=== PATIENT | male | born 1945 | race Caucasian/White ===

== ENCOUNTER → 2017-08-08 10:29 | Outpatient (CLI) | payer MEDICARE, OTHER, SELFPAY ==
[2017-08-08 11:38] LABS: Absolute Lymphocyte Count 2.41 X10^3/ul (0.83-4.51); Absolute Neutrophil Count 4.8 X10^3/uL (2.0-7.7); Basophil# 0.03 X10^3/uL; Basophil% 0.4 % (0-1); Eosinophil# 0.24 X10^3/uL; Eosinophils% 2.8 % (0-5); Hematocrit 47.3 % (40-54); Hemoglobin 15.2 g/dl (13.0-16.5); Lymphocyte # 2.41 X10^3/ul (4.0); Lymphocyte % 28.3 % (19-41); Mean Corp Hgb Conc 32.1 g/gl (32-36); Mean Corpuscular Hgb 31.1 pg (27.0-32.0); Mean Corpuscular Volume 96.7 fL (80-94); Mean Platelet Vol. 10.4 fl (6.2-12.0); Monocyte# 1.02 X10^3/uL; Neutrophil % 56.4 % (47-70); Platelet Count 175 K/mm3 (150-450); RBC Distribution Width CV 13.3 % (11.6-14.6); RBC Distribution Width SD 47.7 fl (35.1-43.9); Red Blood Count 4.89 M/mm3 (4.6-6.2); White Blood Count 8.5 K/mm3 (4.4-11.0)
[2017-08-08 11:39] LABS: POSITIVE COUNT NO; POSITIVE DIFFERENTIAL NO; POSITIVE MORPHOLOGY NO
[2017-08-08 12:12] LABS: ALB/GLOB Ratio 1.3 RATIO (0.9-2.4); AST(SGOT) 18 U/L (15-37); Alanine Aminotransfer ALT/SGPT 24 U/L (16-61); Alkaline Phosphatase 59 U/L (45-117); Anion Gap 8 (5-15); BUN 20 mg/dL (7-18); BUN/Creat Ratio 21.6 RATIO (10-20); Calcium,Total 8.4 mg/dL (8.5-10.1); Chloride 109 mmol/L (98-107); Creatinine, Serum 0.92 mg/dL (0.70-1.30); EST Glomerular Filtration Rate 86 mL/min (>60); Est Glom Filt Rate - Afr Amer 104 mL/min (>60); Glucose 80 mg/dL (74-106); Potassium 3.9 mmol/L (3.5-5.1); Sodium Level 142 mmol/L (136-145)
== END ==
PROVIDERS: Family Provider Family Medicine Geriatric Medicine; PCP Family Medicine Geriatric Medicine; Visit Provider Internal Medicine Rheumatology
DX: I10 Essential (primary) hypertension (principal); M17.0 Bilateral primary osteoarthritis of knee; I82.503 Chronic embolism and thrombosis of unspecified deep veins of lower extremity, bilateral; E78.5 Hyperlipidemia, unspecified; K57.90 Diverticulosis of intestine, part unspecified, without perforation or abscess without bleeding; Z86.711 Personal history of pulmonary embolism
CPT/HCPCS: 36415; 80053; 85025

== ENCOUNTER → 2017-08-14 10:31 | Outpatient (CLI) | payer MEDICARE, OTHER, SELFPAY ==
[2017-08-14 12:48] LABS: Absolute Lymphocyte Count 2.48 X10^3/ul (0.83-4.51); Absolute Neutrophil Count 3.8 X10^3/uL (2.0-7.7); Basophil# 0.02 X10^3/uL; Basophil% 0.3 % (0-1); Eosinophil# 0.22 X10^3/uL; Hematocrit 44.6 % (40-54); Hemoglobin 14.8 g/dl (13.0-16.5); Lymphocyte # 2.48 X10^3/ul (4.0); Lymphocyte % 33.5 % (19-41); Mean Corp Hgb Conc 33.2 g/gl (32-36); Mean Corpuscular Volume 96.3 fL (80-94); Mean Platelet Vol. 10.5 fl (6.2-12.0); Monocyte# 0.91 X10^3/uL; Monocyte% 12.3 % (0-10); Neutrophil # 3.77 X10^3/uL (2.7-7.7); Neutrophil % 50.8 % (47-70); Platelet Count 186 K/mm3 (150-450); RBC Distribution Width CV 13.2 % (11.6-14.6); RBC Distribution Width SD 45.7 fl (35.1-43.9); Red Blood Count 4.63 M/mm3 (4.6-6.2); White Blood Count 7.4 K/mm3 (4.4-11.0)
[2017-08-14 12:55] LABS: POSITIVE COUNT NO; POSITIVE DIFFERENTIAL NO; POSITIVE MORPHOLOGY NO
[2017-08-14 13:00] LABS: Vitamin D,25 Hydroxy 19.9 ng/mL (29.95-100.01)
[2017-08-14 13:02] LABS: ALB/GLOB Ratio 1.2 RATIO (0.9-2.4); AST(SGOT) 22 U/L (15-37); Alanine Aminotransfer ALT/SGPT 25 U/L (16-61); Albumin, Serum 3.8 g/dL (3.2-5.0); Alkaline Phosphatase 56 U/L (45-117); Anion Gap 10 (5-15); BUN 16 mg/dL (7-18); BUN/Creat Ratio 17.6 RATIO (10-20); Calcium,Total 8.5 mg/dL (8.5-10.1); Chloride 107 mmol/L (98-107); Creatinine, Serum 0.91 mg/dL (0.70-1.30); EST Glomerular Filtration Rate 87 mL/min (>60); Est Glom Filt Rate - Afr Amer 106 mL/min (>60); Globulin 3.1 g/dL (2.2-4.2); Glucose 83 mg/dL (74-106); Potassium 3.8 mmol/L (3.5-5.1); Protein, Total 6.9 g/dL (6.4-8.2); Sodium Level 141 mmol/L (136-145); Thyroid Stim Hormone (TSH) 1.47 uIU/mL (0.358-3.74)
== END ==
PROVIDERS: Family Provider Family Medicine Geriatric Medicine; PCP Family Medicine Geriatric Medicine; Visit Provider Family Medicine Geriatric Medicine
DX: I10 Essential (primary) hypertension (principal); E55.9 Vitamin D deficiency, unspecified
CPT/HCPCS: 36415; 80053; 82306; 84443; 85025

== ENCOUNTER → 2017-12-15 11:35 | Outpatient (CLI) | payer MEDICARE, OTHER, SELFPAY ==
[2017-12-15 12:26] LABS: Absolute Lymphocyte Count 2.89 X10^3/ul (0.83-4.51); Absolute Neutrophil Count 3.5 X10^3/uL (2.0-7.7); Basophil# 0.01 X10^3/uL; Basophil% 0.1 % (0-1); Eosinophil# 0.18 X10^3/uL; Eosinophils% 2.4 % (0-5); Hematocrit 45.6 % (40-54); Hemoglobin 14.9 g/dl (13.0-16.5); Lymphocyte # 2.89 X10^3/ul (4.0); Lymphocyte % 38.7 % (19-41); Mean Corp Hgb Conc 32.7 g/gl (32-36); Mean Corpuscular Hgb 31.2 pg (27.0-32.0); Mean Corpuscular Volume 95.6 fL (80-94); Mean Platelet Vol. 10.5 fl (6.2-12.0); Monocyte# 0.89 X10^3/uL; Monocyte% 11.9 % (0-10); Neutrophil # 3.49 X10^3/uL (2.7-7.7); Neutrophil % 46.9 % (47-70); Platelet Count 174 K/mm3 (150-450); RBC Distribution Width CV 13.4 % (11.6-14.6); RBC Distribution Width SD 46.2 fl (35.1-43.9); Red Blood Count 4.77 M/mm3 (4.6-6.2); White Blood Count 7.5 K/mm3 (4.4-11.0)
[2017-12-15 12:35] LABS: POSITIVE COUNT NO; POSITIVE DIFFERENTIAL NO; POSITIVE MORPHOLOGY NO
[2017-12-15 12:56] LABS: ALB/GLOB Ratio 1.3 RATIO (0.9-2.4); AST(SGOT) 20 U/L (15-37); Alanine Aminotransfer ALT/SGPT 26 U/L (16-61); Albumin, Serum 3.9 g/dL (3.2-5.0); Alkaline Phosphatase 61 U/L (45-117); Anion Gap 8 (5-15); BUN 15 mg/dL (7-18); Calcium,Total 8.7 mg/dL (8.5-10.1); Chloride 109 mmol/L (98-107); EST Glomerular Filtration Rate 78 mL/min (>60); Est Glom Filt Rate - Afr Amer 95 mL/min (>60); Globulin 3.1 g/dL (2.2-4.2); Glucose 83 mg/dL (74-106); Potassium 3.9 mmol/L (3.5-5.1); Sodium Level 142 mmol/L (136-145)
== END ==
PROVIDERS: Family Provider Family Medicine Geriatric Medicine; PCP Family Medicine Geriatric Medicine
DX: D68.62 Lupus anticoagulant syndrome (principal)
CPT/HCPCS: 36415; 80053; 85025

== ENCOUNTER → 2018-02-15 11:39 | Outpatient (CLI) | payer MEDICARE, OTHER, SELFPAY ==
[2018-02-15 12:35] LABS: Absolute Lymphocyte Count 2.33 X10^3/ul (0.83-4.51); Absolute Neutrophil Count 3.7 X10^3/uL (2.0-7.7); Basophil# 0.02 X10^3/uL; Basophil% 0.3 % (0-1); Eosinophil# 0.19 X10^3/uL; Eosinophils% 2.8 % (0-5); Hematocrit 45.6 % (40-54); Hemoglobin 15.3 g/dl (13.0-16.5); Lymphocyte # 2.33 X10^3/ul (4.0); Mean Corp Hgb Conc 33.6 g/gl (32-36); Mean Corpuscular Volume 95.4 fL (80-94); Mean Platelet Vol. 10.8 fl (6.2-12.0); Monocyte# 0.63 X10^3/uL; Monocyte% 9.2 % (0-10); Neutrophil # 3.68 X10^3/uL (2.7-7.7); Neutrophil % 53.6 % (47-70); Platelet Count 183 K/mm3 (150-450); RBC Distribution Width CV 13.2 % (11.6-14.6); RBC Distribution Width SD 44.8 fl (35.1-43.9); Red Blood Count 4.78 M/mm3 (4.6-6.2); White Blood Count 6.9 K/mm3 (4.4-11.0)
[2018-02-15 12:37] LABS: POSITIVE COUNT NO; POSITIVE DIFFERENTIAL NO; POSITIVE MORPHOLOGY NO
[2018-02-15 12:53] LABS: Vitamin D,25 Hydroxy 29.3 ng/mL (29.95-100.01)
[2018-02-15 13:18] LABS: ALB/GLOB Ratio 1.1 RATIO (0.9-2.4); AST(SGOT) 17 U/L (15-37); Alanine Aminotransfer ALT/SGPT 23 U/L (16-61); Albumin, Serum 3.6 g/dL (3.2-5.0); Alkaline Phosphatase 57 U/L (45-117); Anion Gap 10 (5-15); BUN 21 mg/dL (7-18); BUN/Creat Ratio 16.8 RATIO (10-20); Calcium,Total 8.3 mg/dL (8.5-10.1); Chloride 110 mmol/L (98-107); Creatinine, Serum 1.25 mg/dL (0.70-1.30); EST Glomerular Filtration Rate 60 mL/min (>60); Est Glom Filt Rate - Afr Amer 73 mL/min (>60); Globulin 3.3 g/dL (2.2-4.2); Glucose 126 mg/dL (74-106); Potassium 3.7 mmol/L (3.5-5.1); Protein, Total 6.9 g/dL (6.4-8.2); Sodium Level 141 mmol/L (136-145); Thyroid Stim Hormone (TSH) 0.83 uIU/mL (0.358-3.74)
[2018-02-16 10:51] LABS: Hep C Antibodies <0.1 s/co ratio (0.0-0.9)
== END ==
PROVIDERS: Family Provider Family Medicine Geriatric Medicine; PCP Family Medicine Geriatric Medicine; Visit Provider Family Medicine Geriatric Medicine
DX: M17.0 Bilateral primary osteoarthritis of knee (principal); I82.503 Chronic embolism and thrombosis of unspecified deep veins of lower extremity, bilateral; I10 Essential (primary) hypertension; E78.5 Hyperlipidemia, unspecified; K57.90 Diverticulosis of intestine, part unspecified, without perforation or abscess without bleeding; Z86.711 Personal history of pulmonary embolism; E55.9 Vitamin D deficiency, unspecified; Z13.89 Encounter for screening for other disorder
CPT/HCPCS: 36415; 80053; 82306; 84443; 85025; 86803

== ENCOUNTER → 2018-08-16 09:28 | Outpatient (CLI) | payer MEDICARE, OTHER, SELFPAY ==
[2018-08-16 12:47] LABS: Absolute Lymphocyte Count 1.94 X10^3/ul (0.83-4.51); Absolute Neutrophil Count 3.5 X10^3/uL (2.0-7.7); Basophil# 0.02 X10^3/uL; Basophil% 0.3 % (0-1); Eosinophil# 0.19 X10^3/uL; Eosinophils% 2.9 % (0-5); Lymphocyte # 1.94 X10^3/ul (4.0); Lymphocyte % 29.9 % (19-41); Mean Corp Hgb Conc 32.6 g/gl (32-36); Mean Corpuscular Hgb 31.4 pg (27.0-32.0); Mean Corpuscular Volume 96.2 fL (80-94); Mean Platelet Vol. 10.5 fl (6.2-12.0); Monocyte# 0.82 X10^3/uL; Monocyte% 12.6 % (0-10); Neutrophil # 3.51 X10^3/uL (2.7-7.7); Neutrophil % 54.1 % (47-70); Platelet Count 176 K/mm3 (150-450); RBC Distribution Width CV 13.5 % (11.6-14.6); RBC Distribution Width SD 47.5 fl (35.1-43.9); Red Blood Count 4.78 M/mm3 (4.6-6.2); White Blood Count 6.5 K/mm3 (4.4-11.0)
[2018-08-16 12:50] LABS: POSITIVE COUNT NO; POSITIVE DIFFERENTIAL NO; POSITIVE MORPHOLOGY NO
[2018-08-16 13:04] LABS: ALB/GLOB Ratio 1.3 RATIO (0.9-2.4); AST(SGOT) 20 U/L (15-37); Alanine Aminotransfer ALT/SGPT 29 U/L (16-61); Albumin, Serum 3.9 g/dL (3.2-5.0); Alkaline Phosphatase 56 U/L (45-117); Anion Gap 7 (5-15); BUN 16 mg/dL (7-18); Calcium,Total 8.5 mg/dL (8.5-10.1); Chloride 110 mmol/L (98-107); EST Glomerular Filtration Rate 78 mL/min (>60); Est Glom Filt Rate - Afr Amer 94 mL/min (>60); Globulin 2.9 g/dL (2.2-4.2); Glucose 85 mg/dL (74-106); Potassium 4.2 mmol/L (3.5-5.1); Protein, Total 6.8 g/dL (6.4-8.2); Sodium Level 141 mmol/L (136-145); Thyroid Stim Hormone (TSH) 1.07 uIU/mL (0.358-3.74)
== END ==
PROVIDERS: Family Provider Family Medicine Geriatric Medicine; PCP Family Medicine Geriatric Medicine; Visit Provider Family Medicine Geriatric Medicine
DX: I10 Essential (primary) hypertension (principal); E55.9 Vitamin D deficiency, unspecified
CPT/HCPCS: 36415; 80053; 82306; 84443; 85025

== ENCOUNTER → 2018-10-05 | Outpatient (CLI) | payer MEDICARE, OTHER, SELFPAY ==
[2018-10-05 12:30] LABS: Absolute Lymphocyte Count 2.15 X10^3/ul (0.83-4.51); Basophil# 0.01 X10^3/uL; Basophil% 0.2 % (0-1); Eosinophil# 0.18 X10^3/uL; Eosinophils% 2.9 % (0-5); Hematocrit 44.4 % (40-54); Hemoglobin 14.7 g/dl (13.0-16.5); Lymphocyte # 2.15 X10^3/ul (4.0); Lymphocyte % 35.1 % (19-41); Mean Corp Hgb Conc 33.1 g/gl (32-36); Mean Corpuscular Hgb 31.3 pg (27.0-32.0); Mean Corpuscular Volume 94.7 fL (80-94); Mean Platelet Vol. 10.9 fl (6.2-12.0); Monocyte% 13.1 % (0-10); Neutrophil # 2.98 X10^3/uL (2.7-7.7); Neutrophil % 48.5 % (47-70); Platelet Count 175 K/mm3 (150-450); RBC Distribution Width CV 13.4 % (11.6-14.6); RBC Distribution Width SD 44.7 fl (35.1-43.9); Red Blood Count 4.69 M/mm3 (4.6-6.2); White Blood Count 6.1 K/mm3 (4.4-11.0)
[2018-10-05 12:33] LABS: POSITIVE COUNT NO; POSITIVE DIFFERENTIAL NO; POSITIVE MORPHOLOGY NO
[2018-10-05 12:50] LABS: ALB/GLOB Ratio 1.3 RATIO (0.9-2.4); AST(SGOT) 19 U/L (15-37); Alanine Aminotransfer ALT/SGPT 24 U/L (16-61); Albumin, Serum 3.8 g/dL (3.2-5.0); Alkaline Phosphatase 59 U/L (45-117); Anion Gap 5 (5-15); BUN 16 mg/dL (7-18); BUN/Creat Ratio 17.9 RATIO (10-20); Calcium,Total 8.1 mg/dL (8.5-10.1); Chloride 109 mmol/L (98-107); Creatinine, Serum 0.89 mg/dL (0.70-1.30); EST Glomerular Filtration Rate 89 mL/min (>60); Est Glom Filt Rate - Afr Amer 107 mL/min (>60); Globulin 2.9 g/dL (2.2-4.2); Glucose 83 mg/dL (74-106); Potassium 3.8 mmol/L (3.5-5.1); Protein, Total 6.7 g/dL (6.4-8.2); Sodium Level 138 mmol/L (136-145)
== END | disposition home or self-care (01) ==
LOC: MTLAB 09:30
PROVIDERS: Family Provider Family Medicine Geriatric Medicine; PCP Family Medicine Geriatric Medicine; Referring Provider Internal Medicine Rheumatology; Visit Provider Internal Medicine Rheumatology
DX: M17.0 Bilateral primary osteoarthritis of knee (principal); I82.503 Chronic embolism and thrombosis of unspecified deep veins of lower extremity, bilateral; I10 Essential (primary) hypertension; E78.5 Hyperlipidemia, unspecified; K57.90 Diverticulosis of intestine, part unspecified, without perforation or abscess without bleeding; Z86.711 Personal history of pulmonary embolism
CPT/HCPCS: 36415; 80053; 85025

== ENCOUNTER → 2019-02-08 | Outpatient (CLI) | payer MEDICARE, OTHER, SELFPAY ==
[2019-02-08 10:15] LABS: Absolute Lymphocyte Count 1.81 X10^3/uL (0.83-4.51); Absolute Neutrophil Count 3.5 X10^3/uL (2.0-7.7); Basophil# 0.03 X10^3/uL; Basophil% 0.5 % (0-1); Eosinophil# 0.28 X10^3/uL; Eosinophils% 4.4 % (0-5); Hematocrit 44.5 % (40-54); Hemoglobin 14.9 g/dL (13.0-16.5); Lymphocyte # 1.81 X10^3/ul (4.0); Lymphocyte % 28.5 % (19-41); Mean Corp Hgb Conc 33.5 g/dL (32-36); Mean Corpuscular Hgb 32.2 pg (27.0-32.0); Mean Corpuscular Volume 96.1 fL (80-94); Mean Platelet Vol. 10.4 fl (6.2-12.0); Monocyte# 0.74 X10^3/uL; Monocyte% 11.7 % (0-10); NRBC Flagged by Analyzer 0 % (0-5); Neutrophil # 3.47 X10^3/uL (2.7-7.7); Neutrophil % 54.7 % (47-70); Platelet Count 172 K/mm3 (150-450); RBC Distribution Width CV 12.7 % (11.6-14.6); RBC Distribution Width SD 44.9 fl (35.1-43.9); Red Blood Count 4.63 M/mm3 (4.6-6.2); White Blood Count 6.3 K/mm3 (4.4-11.0)
[2019-02-08 12:52] LABS: ALB/GLOB Ratio 1.2 RATIO (0.9-2.4); AST(SGOT) 13 U/L (15-37); Alanine Aminotransfer ALT/SGPT 23 U/L (16-61); Albumin, Serum 3.6 g/dL (3.2-5.0); Alkaline Phosphatase 63 U/L (45-117); Anion Gap 6 (5-15); BUN 17 mg/dL (7-18); BUN/Creat Ratio 17.7 RATIO (10-20); Calcium,Total 8.6 mg/dL (8.5-10.1); Chloride 109 mmol/L (98-107); Creatinine, Serum 0.96 mg/dL (0.70-1.30); EST Glomerular Filtration Rate 81 mL/min (>60); Est Glom Filt Rate - Afr Amer 99 mL/min (>60); Globulin 3.1 g/dL (2.2-4.2); Glucose 103 mg/dL (74-106); LDH 150 U/L (87-241); Potassium 3.6 mmol/L (3.5-5.1); Protein, Total 6.7 g/dL (6.4-8.2); Sodium Level 138 mmol/L (136-145)
== END | disposition home or self-care (01) ==
LOC: MTLAB 08:34
PROVIDERS: Family Provider Family Medicine Geriatric Medicine; PCP Family Medicine Geriatric Medicine
DX: D68.62 Lupus anticoagulant syndrome (principal)
CPT/HCPCS: 36415; 80053; 83615; 85025

== ENCOUNTER → 2019-02-18 | Outpatient (CLI) | payer MEDICARE, OTHER, SELFPAY ==
[2019-02-18 12:04] LABS: Absolute Lymphocyte Count 1.98 X10^3/uL (0.83-4.51); Absolute Neutrophil Count 3.9 X10^3/uL (2.0-7.7); Basophil# 0.04 X10^3/uL; Basophil% 0.6 % (0-1); Eosinophil# 0.25 X10^3/uL; Eosinophils% 3.5 % (0-5); Hematocrit 47.2 % (40-54); Hemoglobin 15.7 g/dL (13.0-16.5); Lymphocyte # 1.98 X10^3/ul (4.0); Mean Corp Hgb Conc 33.3 g/dL (32-36); Mean Corpuscular Volume 96.1 fL (80-94); Mean Platelet Vol. 10.7 fl (6.2-12.0); Monocyte# 0.87 X10^3/uL; Monocyte% 12.3 % (0-10); NRBC Flagged by Analyzer 0 % (0-5); Neutrophil % 55.3 % (47-70); Platelet Count 182 K/mm3 (150-450); RBC Distribution Width CV 12.6 % (11.6-14.6); RBC Distribution Width SD 44.4 fl (35.1-43.9); Red Blood Count 4.91 M/mm3 (4.6-6.2); White Blood Count 7.1 K/mm3 (4.4-11.0)
[2019-02-18 12:14] LABS: Vitamin D,25 Hydroxy 30.6 ng/mL (29.95-100.01)
[2019-02-18 12:21] LABS: Albumin, Serum 3.8 g/dL (3.2-5.0); BUN 15 mg/dL (7-18); BUN/Creat Ratio 16.2 RATIO (10-20); Creatinine, Serum 0.93 mg/dL (0.70-1.30); EST Glomerular Filtration Rate 85 mL/min (>60); Est Glom Filt Rate - Afr Amer 103 mL/min (>60); Glucose 79 mg/dL (74-106); Protein, Total 6.9 g/dL (6.4-8.2)
[2019-02-18 12:22] LABS: ALB/GLOB Ratio 1.2 RATIO (0.9-2.4); AST(SGOT) 23 U/L (15-37); Alanine Aminotransfer ALT/SGPT 25 U/L (16-61); Alkaline Phosphatase 63 U/L (45-117); Anion Gap 8 (5-15); Calcium,Total 8.7 mg/dL (8.5-10.1); Chloride 108 mmol/L (98-107); Globulin 3.1 g/dL (2.2-4.2); Potassium 4.1 mmol/L (3.5-5.1); Sodium Level 140 mmol/L (136-145); Thyroid Stim Hormone (TSH) 1.14 uIU/mL (0.358-3.74)
== END | disposition home or self-care (01) ==
LOC: POLAB3 09:35
PROVIDERS: Family Provider Family Medicine Geriatric Medicine; PCP Family Medicine Geriatric Medicine; Visit Provider Family Medicine Geriatric Medicine
DX: E55.9 Vitamin D deficiency, unspecified (principal); I10 Essential (primary) hypertension
CPT/HCPCS: 36415; 80053; 82306; 84443; 85025

== ENCOUNTER → 2019-05-28 14:28 | Outpatient (CLI) | payer MEDICARE, OTHER, SELFPAY ==
[2019-05-28 15:21] LABS: Absolute Lymphocyte Count 2.16 X10^3/uL (0.83-4.51); Absolute Neutrophil Count 4.8 X10^3/uL (2.0-7.7); Basophil# 0.04 X10^3/uL; Basophil% 0.5 % (0-1); Eosinophil# 0.26 X10^3/uL; Eosinophils% 3.2 % (0-5); Hematocrit 48.1 % (40-54); Hemoglobin 15.9 g/dL (13.0-16.5); Lymphocyte # 2.16 X10^3/ul (4.0); Lymphocyte % 26.7 % (19-41); Mean Corp Hgb Conc 33.1 g/dL (32-36); Mean Corpuscular Hgb 31.7 pg (27.0-32.0); Mean Platelet Vol. 10.3 fl (6.2-12.0); Monocyte# 0.82 X10^3/uL; Monocyte% 10.1 % (0-10); NRBC Flagged by Analyzer 0 % (0-5); Neutrophil # 4.79 X10^3/uL (2.7-7.7); Neutrophil % 59.3 % (47-70); Platelet Count 190 K/mm3 (150-450); RBC Distribution Width CV 12.8 % (11.6-14.6); RBC Distribution Width SD 45.2 fl (35.1-43.9); Red Blood Count 5.01 M/mm3 (4.6-6.2); White Blood Count 8.1 K/mm3 (4.4-11.0)
[2019-05-28 15:49] LABS: ALB/GLOB Ratio 1.2 RATIO (0.9-2.4); AST(SGOT) 18 U/L (15-37); Alanine Aminotransfer ALT/SGPT 27 U/L (16-61); Albumin, Serum 3.9 g/dL (3.2-5.0); Alkaline Phosphatase 59 U/L (45-117); Anion Gap 3 (5-15); BUN 23 mg/dL (7-18); BUN/Creat Ratio 17.8 RATIO (10-20); Calcium,Total 8.9 mg/dL (8.5-10.1); Chloride 115 mmol/L (98-107); Creatinine, Serum 1.29 mg/dL (0.70-1.30); EST Glomerular Filtration Rate 58 mL/min (>60); Est Glom Filt Rate - Afr Amer 70 mL/min (>60); Globulin 3.2 g/dL (2.2-4.2); Glucose 95 mg/dL (74-106); Potassium 3.9 mmol/L (3.5-5.1); Protein, Total 7.1 g/dL (6.4-8.2); Sodium Level 141 mmol/L (136-145)
== END ==
PROVIDERS: Family Provider Family Medicine Geriatric Medicine; PCP Family Medicine Geriatric Medicine; Referring Provider Internal Medicine Rheumatology; Visit Provider Internal Medicine Rheumatology
DX: I10 Essential (primary) hypertension (principal); M17.0 Bilateral primary osteoarthritis of knee; I82.503 Chronic embolism and thrombosis of unspecified deep veins of lower extremity, bilateral; E78.5 Hyperlipidemia, unspecified; K57.90 Diverticulosis of intestine, part unspecified, without perforation or abscess without bleeding; Z86.711 Personal history of pulmonary embolism
CPT/HCPCS: 36415; 80053; 85025

== ENCOUNTER → 2019-08-26 10:28 | Outpatient (CLI) | payer MEDICARE, OTHER, SELFPAY ==
[2019-08-26 12:27] LABS: Absolute Neutrophil Count 3.5 X10^3/uL (2.0-7.7); Basophil# 0.03 X10^3/uL; Basophil% 0.4 % (0-1); Eosinophils% 4.2 % (0-5); Hematocrit 45.8 % (40-54); Hemoglobin 14.9 g/dL (13.0-16.5); Lymphocyte % 33.8 % (19-41); Mean Corp Hgb Conc 32.5 g/dL (32-36); Mean Corpuscular Hgb 31.2 pg (27.0-32.0); Mean Corpuscular Volume 95.8 fL (80-94); Mean Platelet Vol. 10.4 fl (6.2-12.0); Monocyte# 0.89 X10^3/uL; Monocyte% 12.5 % (0-10); NRBC Flagged by Analyzer 0 % (0-5); Neutrophil # 3.48 X10^3/uL (2.7-7.7); Platelet Count 187 K/mm3 (150-450); RBC Distribution Width CV 12.6 % (11.6-14.6); RBC Distribution Width SD 44.5 fl (35.1-43.9); Red Blood Count 4.78 M/mm3 (4.6-6.2); White Blood Count 7.1 K/mm3 (4.4-11.0)
[2019-08-26 12:42] LABS: Vitamin D,25 Hydroxy 34.3 ng/mL
[2019-08-26 12:52] LABS: ALB/GLOB Ratio 1.2 RATIO (0.9-2.4); AST(SGOT) 16 U/L (15-37); Alanine Aminotransfer ALT/SGPT 23 U/L (16-61); Albumin, Serum 3.7 g/dL (3.2-5.0); Alkaline Phosphatase 59 U/L (45-117); Anion Gap 5 (5-15); BUN 14 mg/dL (7-18); BUN/Creat Ratio 13.9 RATIO (10-20); Calcium,Total 8.7 mg/dL (8.5-10.1); Chloride 109 mmol/L (98-107); Creatinine, Serum 1.01 mg/dL (0.70-1.30); EST Glomerular Filtration Rate 77 mL/min (>60); Est Glom Filt Rate - Afr Amer 93 mL/min (>60); Globulin 3.2 g/dL (2.2-4.2); Glucose 74 mg/dL (74-106); Potassium 4.1 mmol/L (3.5-5.1); Protein, Total 6.9 g/dL (6.4-8.2); Sodium Level 139 mmol/L (136-145); Thyroid Stim Hormone (TSH) 1.31 uIU/mL (0.358-3.74)
== END ==
PROVIDERS: PCP Family Medicine Geriatric Medicine; Visit Provider Family Medicine Geriatric Medicine
DX: E55.9 Vitamin D deficiency, unspecified (principal); I10 Essential (primary) hypertension
CPT/HCPCS: 36415; 80053; 82306; 84443; 85025

== ENCOUNTER → 2019-12-03 | Outpatient (CLI) | payer MEDICARE, OTHER, SELFPAY ==
[2019-12-03 13:05] LABS: Absolute Lymphocyte Count 1.88 X10^3/uL (0.83-4.51); Absolute Neutrophil Count 5.4 X10^3/uL (2.0-7.7); Basophil# 0.04 X10^3/uL; Basophil% 0.5 % (0-1); Eosinophil# 0.24 X10^3/uL; Eosinophils% 2.8 % (0-5); Hematocrit 47.9 % (40-54); Hemoglobin 15.5 g/dL (13.0-16.5); Lymphocyte # 1.88 X10^3/ul (4.0); Lymphocyte % 22.2 % (19-41); Mean Corp Hgb Conc 32.4 g/dL (32-36); Mean Corpuscular Hgb 31.4 pg (27.0-32.0); Mean Corpuscular Volume 97.2 fL (80-94); Mean Platelet Vol. 10.5 fl (6.2-12.0); Monocyte# 0.83 X10^3/uL; Monocyte% 9.8 % (0-10); NRBC Flagged by Analyzer 0 % (0-5); Neutrophil # 5.44 X10^3/uL (2.7-7.7); Neutrophil % 64.5 % (47-70); Platelet Count 200 K/mm3 (150-450); RBC Distribution Width SD 46.3 fl (35.1-43.9); Red Blood Count 4.93 M/mm3 (4.6-6.2); White Blood Count 8.5 K/mm3 (4.4-11.0)
[2019-12-03 13:15] LABS: ALB/GLOB Ratio 1.1 RATIO (0.9-2.4); AST(SGOT) 16 U/L (15-37); Alanine Aminotransfer ALT/SGPT 22 U/L (16-61); Albumin, Serum 3.8 g/dL (3.2-5.0); Alkaline Phosphatase 68 U/L (45-117); Anion Gap 7 (5-15); BUN 13 mg/dL (7-18); BUN/Creat Ratio 14.3 RATIO (10-20); Calcium,Total 8.6 mg/dL (8.5-10.1); Chloride 108 mmol/L (98-107); Creatinine, Serum 0.91 mg/dL (0.70-1.30); EST Glomerular Filtration Rate 87 mL/min (>60); Est Glom Filt Rate - Afr Amer 105 mL/min (>60); Globulin 3.4 g/dL (2.2-4.2); Glucose 93 mg/dL (74-106); Potassium 3.8 mmol/L (3.5-5.1); Protein, Total 7.2 g/dL (6.4-8.2); Sodium Level 139 mmol/L (136-145)
== END | disposition home or self-care (01) ==
LOC: MTLAB 09:58
PROVIDERS: PCP Family Medicine Geriatric Medicine; Referring Provider Internal Medicine Rheumatology; Visit Provider Internal Medicine Rheumatology
DX: M17.0 Bilateral primary osteoarthritis of knee (principal); I82.503 Chronic embolism and thrombosis of unspecified deep veins of lower extremity, bilateral; I10 Essential (primary) hypertension; E78.5 Hyperlipidemia, unspecified; K57.90 Diverticulosis of intestine, part unspecified, without perforation or abscess without bleeding; Z86.711 Personal history of pulmonary embolism
CPT/HCPCS: 36415; 80053; 85025

== ENCOUNTER → 2019-12-05 | Outpatient (CLI) | payer MEDICARE, OTHER, SELFPAY ==
[2019-12-05 12:04] LABS: Absolute Lymphocyte Count 1.82 X10^3/uL (0.83-4.51); Absolute Neutrophil Count 6.1 X10^3/uL (2.0-7.7); Basophil# 0.03 X10^3/uL; Basophil% 0.3 % (0-1); Eosinophil# 0.18 X10^3/uL; Hematocrit 47.1 % (40-54); Hemoglobin 15.6 g/dL (13.0-16.5); Lymphocyte # 1.82 X10^3/ul (4.0); Lymphocyte % 19.9 % (19-41); Mean Corp Hgb Conc 33.1 g/dL (32-36); Mean Corpuscular Hgb 31.5 pg (27.0-32.0); Mean Corpuscular Volume 95.2 fL (80-94); Mean Platelet Vol. 10.2 fl (6.2-12.0); NRBC Flagged by Analyzer 0 % (0-5); Neutrophil # 6.06 X10^3/uL (2.7-7.7); Neutrophil % 66.4 % (47-70); Platelet Count 203 K/mm3 (150-450); RBC Distribution Width CV 12.9 % (11.6-14.6); RBC Distribution Width SD 45.1 fl (35.1-43.9); Red Blood Count 4.95 M/mm3 (4.6-6.2); White Blood Count 9.1 K/mm3 (4.4-11.0)
[2019-12-05 12:22] LABS: ALB/GLOB Ratio 1.1 RATIO (0.9-2.4); AST(SGOT) 17 U/L (15-37); Alanine Aminotransfer ALT/SGPT 22 U/L (16-61); Alkaline Phosphatase 70 U/L (45-117); Anion Gap 8 (5-15); BUN 13 mg/dL (7-18); Chloride 109 mmol/L (98-107); Creatinine, Serum 0.87 mg/dL (0.70-1.30); EST Glomerular Filtration Rate 92 mL/min (>60); Est Glom Filt Rate - Afr Amer 111 mL/min (>60); Globulin 3.5 g/dL (2.2-4.2); Glucose 95 mg/dL (74-106); Potassium 3.6 mmol/L (3.5-5.1); Protein, Total 7.5 g/dL (6.4-8.2); Sodium Level 140 mmol/L (136-145)
--- NOTE | 2019-12-05 13:54 | CT_ITS ---
STUDY: CT ABDOMEN AND PELVIS WITH CONTRAST REASON FOR EXAM: Male, 74 years old. ABD PAIN/LLQ AND PELVIC PAIN x 3-4 days increasing in intensity. Prior cholecystectomy and Tay filter placement d/t DVT''s in 2017 RADIATION DOSAGE (If Supplied By Facility): CTDIvol = ( 19.51 ) mGy, DLP = ( 1890.71 ) mGycm TECHNIQUE: Transaxial images were obtained from the dome of the diaphragm to the symphysis pubis without oral contrast. Oral and amp; IV Gastrografin and amp; 100mL Isovue-300 was administered. Sagittal and coronal images were reconstructed. Individualized dose optimization techniques were used for this CT. COMPARISON: Comparison is made with prior study of July 20, 2016. FINDINGS: The visualized lung bases are unremarkable. Coronary artery calcification. Normal liver. The patient is status post cholecystectomy. Normal spleen. Normal pancreas. Normal bilateral adrenal glands. There is a 3.7 cm x 5.2 cm cyst in the posterior midportion of the right kidney. Normal left kidney. Nonspecific mild degree of bilateral perinephric stranding. There is a moderate hiatal hernia. There is evidence of a duodenal diverticulum in the second portion of the duodenum. This measures 1.9 cm. Minimal dilatation of the third portion of the duodenum. There are multiple colonic diverticula consistent with diverticulosis. The appendix is visualized and appears normal. Normal abdominal aorta. There is an IVC filter in place. There is borderline retroperitoneal lymphadenopathy with enlarged nodes no greater than 10mm in the short axis diameter. Mild degree of diffuse bowel wall thickening although the bladder is not completely distended. There are prostatic calcifications. There is a small umbilical hernia containing fat. There are diffuse degenerative changes of the visualized lumbar spine. CT/Abdomen/Pelvis WITH Contrast IMPRESSION: Sigmoid diverticulosis. Small diverticulum in the second portion of the duodenum. Moderate hiatal hernia. Electronically Signed: Duane Davey, at 14:49 EDT , Service support ,
== END | disposition home or self-care (01) ==
PROVIDERS: PCP Family Medicine Geriatric Medicine; Referring Provider Family Medicine Geriatric Medicine; Visit Provider Family Medicine Geriatric Medicine
DX: R10.9 Unspecified abdominal pain (principal); Z12.5 Encounter for screening for malignant neoplasm of prostate
CPT/HCPCS: 36415; 74177; 80053; 84153; 85025; Q9967; A4216; G0103

== ENCOUNTER → 2020-01-13 | Outpatient (CLI) | payer MEDICARE, OTHER, SELFPAY ==
--- NOTE | 2020-01-13 14:47 | RAD_ITS ---
STUDY: X-RAY - PELVIS AND RIGHT HIP REASON FOR EXAM: Male, 74 years old. Right hip pain x1 week. TECHNIQUE: 3 views of the pelvis and hip. COMPARISON: Prior pelvic study of 12/08/2015 FINDINGS: There is a non-specific bowel gas pattern. Normal visualized soft tissue structures. Normal bilateral iliac wings, sacroiliac joints and visualized sacrum. Normal bilateral superior and inferior pubic rami. Normal pubic symphysis. Normal bilateral ischial tuberosities. There are minimal degenerative changes of the left and right hips. RAD/HIP, UNI W/ Pelvis 2-3 Views IMPRESSION: Minimal degenerative changes of the left and right hips. Electronically Signed: Paolo Sal MD at 16:15 EDT , Service support ,
--- NOTE | 2020-01-13 14:47 | RAD_ITS ---
STUDY: X-RAY - LUMBAR SPINE REASON FOR EXAM: Male, 74 years old. Lower back pain x1 week. TECHNIQUE: 3 view(s) of the lumbar spine were obtained. COMPARISON: Prior study of 07/01/2016 FINDINGS: Normal lumbar lordosis. There is no substantial scoliosis. There is a normal alignment of the vertebrae. There is diffuse endplate spondylosis of the lumbar spine. There is multi-level degenerative disc disease with multi-level disc space narrowing. This most severely affects the L5-S1 level. An IVC filter is noted at the L2-3 level. RAD/Lumbar Spine 2 or 3 Views IMPRESSION: Degenerative changes of the spine, as detailed above. Findings have increased in severity from the previous study. IVC filter is noted at the L2-3 level, unchanged in position in the interval. Electronically Signed: Paolo Sla MD at 16:17 EDT , Service support ,
== END | disposition home or self-care (01) ==
LOC: RAD 14:46
PROVIDERS: PCP Family Medicine Geriatric Medicine; Referring Provider Family Medicine Geriatric Medicine; Visit Provider Family Medicine Geriatric Medicine
DX: M54.5 Low back pain (principal); M25.551 Pain in right hip
CPT/HCPCS: 72100; 73502

== ENCOUNTER → 2020-02-12 10:33 | Outpatient (CLI) | payer MEDICARE, OTHER, SELFPAY ==
[2020-02-12 12:46] LABS: Absolute Lymphocyte Count 1.89 X10^3/uL (0.83-4.51); Absolute Neutrophil Count 4.7 X10^3/uL (2.0-7.7); Basophil# 0.02 X10^3/uL; Basophil% 0.3 % (0-1); Eosinophil# 0.19 X10^3/uL; Eosinophils% 2.5 % (0-5); Hematocrit 45.2 % (40-54); Hemoglobin 14.9 g/dL (13.0-16.5); Lymphocyte # 1.89 X10^3/ul (4.0); Lymphocyte % 24.4 % (19-41); Mean Corpuscular Hgb 31.4 pg (27.0-32.0); Mean Corpuscular Volume 95.4 fL (80-94); Mean Platelet Vol. 10.4 fl (6.2-12.0); Monocyte# 0.89 X10^3/uL; Monocyte% 11.5 % (0-10); NRBC Flagged by Analyzer 0 % (0-5); Neutrophil # 4.72 X10^3/uL (2.7-7.7); Neutrophil % 60.9 % (47-70); Platelet Count 176 K/mm3 (150-450); RBC Distribution Width CV 13.2 % (11.6-14.6); RBC Distribution Width SD 46.3 fl (35.1-43.9); Red Blood Count 4.74 M/mm3 (4.6-6.2); White Blood Count 7.7 K/mm3 (4.4-11.0)
[2020-02-12 13:19] LABS: ALB/GLOB Ratio 1.1 RATIO (0.9-2.4); AST(SGOT) 15 U/L (15-37); Alanine Aminotransfer ALT/SGPT 25 U/L (16-61); Albumin, Serum 3.5 g/dL (3.2-5.0); Alkaline Phosphatase 53 U/L (45-117); Anion Gap 4 (5-15); BUN 19 mg/dL (7-18); BUN/Creat Ratio 19.4 RATIO (10-20); Calcium,Total 8.8 mg/dL (8.5-10.1); Chloride 110 mmol/L (98-107); Creatinine, Serum 0.98 mg/dL (0.70-1.30); EST Glomerular Filtration Rate 80 mL/min (>60); Est Glom Filt Rate - Afr Amer 96 mL/min (>60); Globulin 3.2 g/dL (2.2-4.2); Glucose 80 mg/dL (74-106); LDH 148 U/L (87-241); Potassium 3.9 mmol/L (3.5-5.1); Protein, Total 6.7 g/dL (6.4-8.2); Sodium Level 140 mmol/L (136-145)
== END ==
PROVIDERS: PCP Family Medicine Geriatric Medicine
DX: D68.62 Lupus anticoagulant syndrome (principal)
CPT/HCPCS: 36415; 80053; 83615; 85025

== ENCOUNTER → 2020-02-26 | Outpatient (CLI) | payer MEDICARE, OTHER, SELFPAY ==
[2020-02-26 12:19] LABS: Absolute Lymphocyte Count 1.84 X10^3/uL (0.83-4.51); Absolute Neutrophil Count 4.7 X10^3/uL (2.0-7.7); Basophil# 0.03 X10^3/uL; Basophil% 0.4 % (0-1); Eosinophils% 1.3 % (0-5); Hematocrit 48.2 % (40-54); Hemoglobin 15.5 g/dL (13.0-16.5); Lymphocyte # 1.84 X10^3/ul (4.0); Lymphocyte % 24.4 % (19-41); Mean Corp Hgb Conc 32.2 g/dL (32-36); Mean Corpuscular Volume 96.4 fL (80-94); Mean Platelet Vol. 10.3 fl (6.2-12.0); Monocyte# 0.81 X10^3/uL; Monocyte% 10.7 % (0-10); NRBC Flagged by Analyzer 0 % (0-5); Neutrophil # 4.74 X10^3/uL (2.7-7.7); Neutrophil % 62.9 % (47-70); Platelet Count 206 K/mm3 (150-450); RBC Distribution Width CV 13.4 % (11.6-14.6); RBC Distribution Width SD 48.5 fl (35.1-43.9); White Blood Count 7.5 K/mm3 (4.4-11.0)
[2020-02-26 12:36] LABS: Vitamin D,25 Hydroxy 35.4 ng/mL
[2020-02-26 12:40] LABS: ALB/GLOB Ratio 1.1 RATIO (0.9-2.4); AST(SGOT) 19 U/L (15-37); Alanine Aminotransfer ALT/SGPT 30 U/L (16-61); Albumin, Serum 3.6 g/dL (3.2-5.0); Alkaline Phosphatase 58 U/L (45-117); Anion Gap 7 (5-15); BUN 18 mg/dL (7-18); BUN/Creat Ratio 15.9 RATIO (10-20); Calcium,Total 8.6 mg/dL (8.5-10.1); Chloride 111 mmol/L (98-107); Creatinine, Serum 1.13 mg/dL (0.70-1.30); EST Glomerular Filtration Rate 68 mL/min (>60); Est Glom Filt Rate - Afr Amer 82 mL/min (>60); Globulin 3.2 g/dL (2.2-4.2); Glucose 89 mg/dL (74-106); Potassium 3.8 mmol/L (3.5-5.1); Protein, Total 6.8 g/dL (6.4-8.2); Sodium Level 140 mmol/L (136-145); Thyroid Stim Hormone (TSH) 0.94 uIU/mL (0.358-3.74)
== END | disposition home or self-care (01) ==
LOC: POLAB3 09:41
PROVIDERS: PCP Family Medicine Geriatric Medicine; Visit Provider Family Medicine Geriatric Medicine
DX: E55.9 Vitamin D deficiency, unspecified (principal); I10 Essential (primary) hypertension
CPT/HCPCS: 36415; 80053; 82306; 84443; 85025

== ENCOUNTER 2020-07-28 12:38 | Outpatient (RCR) | payer MEDICARE, OTHER, SELFPAY ==
[2020-07-28] MEDS: COVID-19 VACC, MRNA(PFIZER)/PF 30 MCG/0.3 ML SYRINGE IM (18:20)
[2020-08-18] MEDS: COVID-19 VACC, MRNA(PFIZER)/PF 30 MCG/0.3 ML SYRINGE IM (18:04)
== END 2020-10-27 23:59 ==
LOC: IMMUN 12:38
PROVIDERS: PCP Family Medicine Geriatric Medicine; Visit Provider Family Medicine
DX: Z23 Encounter for immunization (principal)
CPT/HCPCS: 0001A; 0002A; 91300

== ENCOUNTER → 2020-08-26 12:06 | Outpatient (CLI) | payer MEDICARE, OTHER, SELFPAY ==
[2020-08-26 12:32] LABS: Absolute Lymphocyte Count 1.62 X10^3/uL (0.83-4.51); Absolute Neutrophil Count 3.7 X10^3/uL (2.0-7.7); Basophil# 0.04 X10^3/uL; Basophil% 0.6 % (0-1); Eosinophil# 0.34 X10^3/uL; Eosinophils% 5.2 % (0-5); Hematocrit 47.5 % (40-54); Hemoglobin 15.5 g/dL (13.0-16.5); Lymphocyte # 1.62 X10^3/ul (4.0); Lymphocyte % 24.7 % (19-41); Mean Corp Hgb Conc 32.6 g/dL (32-36); Mean Corpuscular Hgb 31.3 pg (27.0-32.0); Mean Corpuscular Volume 95.8 fL (80-94); Mean Platelet Vol. 10.3 fl (6.2-12.0); Monocyte# 0.81 X10^3/uL; Monocyte% 12.3 % (0-10); NRBC Flagged by Analyzer 0 % (0-5); Neutrophil # 3.73 X10^3/uL (2.7-7.7); Neutrophil % 56.7 % (47-70); Platelet Count 207 K/mm3 (150-450); RBC Distribution Width CV 12.7 % (11.6-14.6); RBC Distribution Width SD 45.1 fl (35.1-43.9); Red Blood Count 4.96 M/mm3 (4.6-6.2); White Blood Count 6.6 K/mm3 (4.4-11.0)
[2020-08-26 12:53] LABS: ALB/GLOB Ratio 1.1 RATIO (0.9-2.4); AST(SGOT) 15 U/L (15-37); Alanine Aminotransfer ALT/SGPT 28 U/L (16-61); Albumin, Serum 3.7 g/dL (3.2-5.0); Alkaline Phosphatase 66 U/L (45-117); Anion Gap 4 (5-15); BUN 17 mg/dL (7-18); BUN/Creat Ratio 17.3 RATIO (10-20); Calcium,Total 8.7 mg/dL (8.5-10.1); Chloride 110 mmol/L (98-107); Creatinine, Serum 0.98 mg/dL (0.70-1.30); EST Glomerular Filtration Rate 79 mL/min (>60); Est Glom Filt Rate - Afr Amer 96 mL/min (>60); Globulin 3.3 g/dL (2.2-4.2); Glucose 95 mg/dL (74-106); Potassium 3.7 mmol/L (3.5-5.1); Sodium Level 139 mmol/L (136-145)
[2020-08-26 13:25] LABS: Vitamin D,25 Hydroxy 27.7 ng/mL
== END ==
PROVIDERS: PCP Family Medicine Geriatric Medicine; Visit Provider Family Medicine Geriatric Medicine
DX: E55.9 Vitamin D deficiency, unspecified (principal); I10 Essential (primary) hypertension
CPT/HCPCS: 36415; 80053; 82306; 84443; 85025

== ENCOUNTER → 2020-11-30 11:03 | Outpatient (CLI) | payer MEDICARE, OTHER, SELFPAY ==
[2020-11-30 12:51] LABS: Absolute Neutrophil Count 3.7 X10^3/uL (2.0-7.7); Basophil# 0.04 X10^3/uL; Basophil% 0.6 % (0-1); Eosinophil# 0.23 X10^3/uL; Eosinophils% 3.5 % (0-5); Hematocrit 45.4 % (40-54); Lymphocyte % 26.1 % (19-41); Mean Corpuscular Hgb 31.1 pg (27.0-32.0); Mean Corpuscular Volume 94.2 fL (80-94); Mean Platelet Vol. 9.8 fl (6.2-12.0); Monocyte# 0.86 X10^3/uL; Monocyte% 13.2 % (0-10); NRBC Flagged by Analyzer 0 % (0-5); Neutrophil # 3.67 X10^3/uL (2.7-7.7); Neutrophil % 56.4 % (47-70); Platelet Count 206 K/mm3 (150-450); RBC Distribution Width CV 12.9 % (11.6-14.6); RBC Distribution Width SD 44.1 fl (35.1-43.9); Red Blood Count 4.82 M/mm3 (4.6-6.2); White Blood Count 6.5 K/mm3 (4.4-11.0)
[2020-11-30 13:25] LABS: ALB/GLOB Ratio 1.1 RATIO (0.9-2.4); AST(SGOT) 15 U/L (15-37); Alanine Aminotransfer ALT/SGPT 21 U/L (16-61); Albumin, Serum 3.6 g/dL (3.2-5.0); Alkaline Phosphatase 66 U/L (45-117); Anion Gap 8 (5-15); BUN 18 mg/dL (7-18); BUN/Creat Ratio 18.1 RATIO (10-20); Calcium,Total 8.7 mg/dL (8.5-10.1); Chloride 108 mmol/L (98-107); Creatinine, Serum 0.99 mg/dL (0.70-1.30); EST Glomerular Filtration Rate 78 mL/min (>60); Est Glom Filt Rate - Afr Amer 94 mL/min (>60); Globulin 3.2 g/dL (2.2-4.2); Glucose 90 mg/dL (74-106); Protein, Total 6.8 g/dL (6.4-8.2); Sodium Level 140 mmol/L (136-145)
== END ==
PROVIDERS: PCP Family Medicine Geriatric Medicine; Referring Provider Internal Medicine Rheumatology; Visit Provider Internal Medicine Rheumatology
DX: M17.0 Bilateral primary osteoarthritis of knee (principal); I82.503 Chronic embolism and thrombosis of unspecified deep veins of lower extremity, bilateral; I10 Essential (primary) hypertension; E78.5 Hyperlipidemia, unspecified; K57.90 Diverticulosis of intestine, part unspecified, without perforation or abscess without bleeding; Z86.711 Personal history of pulmonary embolism
CPT/HCPCS: 36415; 80053; 85025

== ENCOUNTER → 2021-02-16 10:19 | Outpatient (CLI) | payer MEDICARE, OTHER, SELFPAY ==
[2021-02-16 12:17] LABS: Absolute Lymphocyte Count 1.69 X10^3/uL (0.83-4.51); Absolute Neutrophil Count 5.2 X10^3/uL (2.0-7.7); Basophil# 0.03 X10^3/uL; Basophil% 0.4 % (0-1); Eosinophil# 0.18 X10^3/uL; Eosinophils% 2.2 % (0-5); Hematocrit 45.9 % (40-54); Hemoglobin 15.3 g/dL (13.0-16.5); Lymphocyte # 1.69 X10^3/ul (0.83-4.51); Lymphocyte % 21.1 % (19-41); Mean Corp Hgb Conc 33.3 g/dL (32-36); Mean Corpuscular Hgb 31.9 pg (27.0-32.0); Mean Corpuscular Volume 95.6 fL (80-94); Mean Platelet Vol. 9.8 fl (6.2-12.0); Monocyte# 0.93 X10^3/uL; Monocyte% 11.6 % (0-10); NRBC Flagged by Analyzer 0 % (0-5); Neutrophil # 5.16 X10^3/uL (2.7-7.7); Neutrophil % 64.5 % (47-70); Platelet Count 204 K/mm3 (150-450); RBC Distribution Width CV 13.1 % (11.6-14.6); RBC Distribution Width SD 46.5 fl (35.1-43.9)
[2021-02-16 12:41] LABS: ALB/GLOB Ratio 1.1 RATIO (0.9-2.4); AST(SGOT) 15 U/L (15-37); Alanine Aminotransfer ALT/SGPT 21 U/L (16-61); Albumin, Serum 3.7 g/dL (3.2-5.0); Alkaline Phosphatase 63 U/L (45-117); Anion Gap 11 (5-15); BUN 18 mg/dL (7-18); BUN/Creat Ratio 18.4 RATIO (10-20); Calcium,Total 8.8 mg/dL (8.5-10.1); Chloride 106 mmol/L (98-107); Creatinine, Serum 0.98 mg/dL (0.70-1.30); EST Glomerular Filtration Rate 79 mL/min (>60); Est Glom Filt Rate - Afr Amer 96 mL/min (>60); Globulin 3.5 g/dL (2.2-4.2); Glucose 81 mg/dL (74-106); LDH 165 U/L (87-241); Protein, Total 7.2 g/dL (6.4-8.2); Sodium Level 140 mmol/L (136-145)
== END ==
PROVIDERS: PCP Family Medicine Geriatric Medicine
DX: D68.62 Lupus anticoagulant syndrome (principal)
CPT/HCPCS: 36415; 80053; 83615; 85025

== ENCOUNTER → 2021-03-01 09:32 | Outpatient (CLI) | payer MEDICARE, OTHER, SELFPAY ==
[2021-03-01 12:30] LABS: Absolute Lymphocyte Count 2.35 X10^3/uL (0.83-4.51); Absolute Neutrophil Count 5.5 X10^3/uL (2.0-7.7); Basophil# 0.05 X10^3/uL; Basophil% 0.5 % (0-1); Eosinophil# 0.23 X10^3/uL; Eosinophils% 2.5 % (0-5); Lymphocyte # 2.35 X10^3/ul (0.83-4.51); Lymphocyte % 25.5 % (19-41); Mean Corp Hgb Conc 33.3 g/dL (32-36); Mean Corpuscular Hgb 31.6 pg (27.0-32.0); Mean Corpuscular Volume 94.9 fL (80-94); Mean Platelet Vol. 9.6 fl (6.2-12.0); Monocyte# 1.04 X10^3/uL; Monocyte% 11.3 % (0-10); NRBC Flagged by Analyzer 0 % (0-5); Neutrophil # 5.48 X10^3/uL (2.7-7.7); Neutrophil % 59.4 % (47-70); Platelet Count 267 K/mm3 (150-450); RBC Distribution Width CV 12.8 % (11.6-14.6); RBC Distribution Width SD 44.6 fl (35.1-43.9); Red Blood Count 5.06 M/mm3 (4.6-6.2); White Blood Count 9.2 K/mm3 (4.4-11.0)
[2021-03-01 12:44] LABS: Vitamin D,25 Hydroxy 29.4 ng/mL
[2021-03-01 12:54] LABS: ALB/GLOB Ratio 0.9 RATIO (0.9-2.4); AST(SGOT) 10 U/L (15-37); Alanine Aminotransfer ALT/SGPT 24 U/L (16-61); Albumin, Serum 3.4 g/dL (3.2-5.0); Alkaline Phosphatase 59 U/L (45-117); Anion Gap 9 (5-15); BUN 18 mg/dL (7-18); BUN/Creat Ratio 17.8 RATIO (10-20); Calcium,Total 8.7 mg/dL (8.5-10.1); Chloride 105 mmol/L (98-107); Creatinine, Serum 1.01 mg/dL (0.70-1.30); EST Glomerular Filtration Rate 77 mL/min (>60); Est Glom Filt Rate - Afr Amer 93 mL/min (>60); Globulin 3.6 g/dL (2.2-4.2); Glucose 83 mg/dL (74-106); Potassium 3.7 mmol/L (3.5-5.1); Sodium Level 139 mmol/L (136-145); Thyroid Stim Hormone (TSH) 1.12 uIU/mL (0.358-3.74)
== END ==
PROVIDERS: PCP Family Medicine Geriatric Medicine; Visit Provider Family Medicine Geriatric Medicine
DX: E55.9 Vitamin D deficiency, unspecified (principal); I10 Essential (primary) hypertension
CPT/HCPCS: 36415; 80053; 82306; 84443; 85025

== ENCOUNTER 2021-08-30 09:46 | Outpatient (CLI) | payer MEDICARE, OTHER, SELFPAY ==
[2021-08-30 12:24] LABS: Absolute Lymphocyte Count 2.32 X10^3/uL (0.83-4.51); Absolute Neutrophil Count 4.4 X10^3/uL (2.0-7.7); Basophil# 0.05 X10^3/uL; Basophil% 0.6 % (0-1); Eosinophil# 0.33 X10^3/uL; Eosinophils% 4.1 % (0-5); Hematocrit 44.3 % (40-54); Hemoglobin 14.9 g/dL (13.0-16.5); Lymphocyte # 2.32 X10^3/ul (0.83-4.51); Lymphocyte % 28.9 % (19-41); Mean Corp Hgb Conc 33.6 g/dL (32-36); Mean Corpuscular Hgb 31.4 pg (27.0-32.0); Mean Corpuscular Volume 93.5 fL (80-94); Mean Platelet Vol. 10.1 fl (6.2-12.0); Monocyte# 0.94 X10^3/uL; Monocyte% 11.7 % (0-10); NRBC Flagged by Analyzer 0 % (0-5); Neutrophil # 4.39 X10^3/uL (2.7-7.7); Neutrophil % 54.6 % (47-70); Platelet Count 196 K/mm3 (150-450); RBC Distribution Width CV 12.8 % (11.6-14.6); RBC Distribution Width SD 44.1 fl (35.1-43.9); Red Blood Count 4.74 M/mm3 (4.6-6.2)
[2021-08-30 12:35] LABS: Vitamin D,25 Hydroxy 44.6 ng/mL
[2021-08-30 13:07] LABS: ALB/GLOB Ratio 1.1 RATIO (0.9-2.4); AST(SGOT) 15 U/L (15-37); Alanine Aminotransfer ALT/SGPT 25 U/L (16-61); Albumin, Serum 3.6 g/dL (3.2-5.0); Alkaline Phosphatase 64 U/L (45-117); Anion Gap 6 (5-15); BUN 19 mg/dL (7-18); BUN/Creat Ratio 18.6 RATIO (10-20); Calcium,Total 8.9 mg/dL (8.5-10.1); Chloride 111 mmol/L (98-107); Creatinine, Serum 1.02 mg/dL (0.70-1.30); EST Glomerular Filtration Rate 76 mL/min (>60); Est Glom Filt Rate - Afr Amer 92 mL/min (>60); Globulin 3.2 g/dL (2.2-4.2); Glucose 102 mg/dL (74-106); Potassium 3.8 mmol/L (3.5-5.1); Protein, Total 6.8 g/dL (6.4-8.2); Sodium Level 138 mmol/L (136-145); Thyroid Stim Hormone (TSH) 1.17 uIU/mL (0.358-3.74)
== END 2021-08-30 23:59 | disposition home or self-care (01) ==
LOC: POLAB3 09:49
PROVIDERS: PCP Family Medicine Geriatric Medicine; Visit Provider Family Medicine Geriatric Medicine
DX: E55.9 Vitamin D deficiency, unspecified (principal); I10 Essential (primary) hypertension
CPT/HCPCS: 36415; 80053; 82306; 84443; 85025

== ENCOUNTER → 2022-03-10 | Outpatient (CLI) | payer MEDICARE, OTHER, SELFPAY ==
[2022-03-10 14:28] LABS: ALB/GLOB Ratio 1.1 RATIO (0.9-2.4); AST(SGOT) 13 U/L (15-37); Alanine Aminotransfer ALT/SGPT 24 U/L (16-61); Albumin, Serum 3.7 g/dL (3.2-5.0); Alkaline Phosphatase 68 U/L (45-117); Anion Gap 6 (5-15); BUN 21 mg/dL (7-18); BUN/Creat Ratio 18.4 RATIO (10-20); Calcium,Total 8.8 mg/dL (8.5-10.1); Chloride 110 mmol/L (98-107); Creatinine, Serum 1.14 mg/dL (0.70-1.30); EST Glomerular Filtration Rate 66 mL/min (>60); Est Glom Filt Rate - Afr Amer 80 mL/min (>60); Globulin 3.3 g/dL (2.2-4.2); Glucose 107 mg/dL (74-106); Potassium 3.9 mmol/L (3.5-5.1); Sodium Level 140 mmol/L (136-145); Thyroid Stim Hormone (TSH) 0.88 uIU/mL (0.358-3.74)
[2022-03-10 14:35] LABS: Vitamin D,25 Hydroxy 43.1 ng/mL
[2022-03-10 17:33] LABS: Absolute Lymphocyte Count 2.59 X10^3/uL (0.83-4.51); Absolute Neutrophil Count 3.5 X10^3/uL (2.0-7.7); Basophil# 0.04 X10^3/uL; Basophil% 0.6 % (0-1); Eosinophil# 0.26 X10^3/uL; Eosinophils% 3.6 % (0-5); Hematocrit 45.9 % (40-54); Hemoglobin 15.3 g/dL (13.0-16.5); Lymphocyte # 2.59 X10^3/ul (0.83-4.51); Lymphocyte % 35.9 % (19-41); Mean Corp Hgb Conc 33.3 g/dL (32-36); Mean Corpuscular Hgb 32.1 pg (27.0-32.0); Mean Corpuscular Volume 96.4 fL (80-94); Mean Platelet Vol. 10.4 fl (6.2-12.0); Monocyte# 0.82 X10^3/uL; Monocyte% 11.4 % (0-10); NRBC Flagged by Analyzer 0 % (0-5); Neutrophil # 3.48 X10^3/uL (2.7-7.7); Neutrophil % 48.2 % (47-70); Platelet Count 193 K/mm3 (150-450); RBC Distribution Width CV 12.9 % (11.6-14.6); RBC Distribution Width SD 46.5 fl (35.1-43.9); Red Blood Count 4.76 M/mm3 (4.6-6.2); White Blood Count 7.2 K/mm3 (4.4-11.0)
== END | disposition home or self-care (01) ==
LOC: POLAB3 09:17
PROVIDERS: PCP Family Medicine Geriatric Medicine; Visit Provider Family Medicine Geriatric Medicine
DX: I10 Essential (primary) hypertension (principal); E55.9 Vitamin D deficiency, unspecified
CPT/HCPCS: 36415; 80053; 82306; 84443; 85025

== ENCOUNTER → 2022-09-08 | Outpatient (CLI) | payer MEDICARE, OTHER, SELFPAY ==
[2022-09-08 17:30] LABS: Absolute Neutrophil Count 3.5 X10^3/uL (2.0-7.7); Basophil# 0.03 X10^3/uL; Basophil% 0.4 % (0-1); Eosinophil# 0.27 X10^3/uL; Eosinophils% 3.9 % (0-5); Hemoglobin 15.1 g/dL (13.0-16.5); Lymphocyte % 34.6 % (19-41); Mean Corp Hgb Conc 33.6 g/dL (32-36); Mean Corpuscular Hgb 32.4 pg (27.0-32.0); Mean Corpuscular Volume 96.6 fL (80-94); Mean Platelet Vol. 9.9 fl (6.2-12.0); Monocyte# 0.74 X10^3/uL; Monocyte% 10.7 % (0-10); NRBC Flagged by Analyzer 0 % (0-5); Neutrophil # 3.48 X10^3/uL (2.7-7.7); Neutrophil % 50.1 % (47-70); Platelet Count 187 K/mm3 (150-450); RBC Distribution Width SD 46.4 fl (35.1-43.9); Red Blood Count 4.66 M/mm3 (4.6-6.2); White Blood Count 6.9 K/mm3 (4.4-11.0)
[2022-09-08 18:01] LABS: Vitamin D,25 Hydroxy 61.8 ng/mL
[2022-09-08 18:10] LABS: AST(SGOT) 20 U/L (15-37); Alanine Aminotransfer ALT/SGPT 25 U/L (16-61); Albumin, Serum 3.7 g/dL (3.2-5.0); Alkaline Phosphatase 64 U/L (45-117); Anion Gap 2 (5-15); BUN 19 mg/dL (7-18); BUN/Creat Ratio 18.4 RATIO (10-20); Chloride 107 mmol/L (98-107); Creatinine, Serum 1.03 mg/dL (0.70-1.30); EST Glomerular Filtration Rate 75 mL/min (>60); Est Glom Filt Rate - Afr Amer 90 mL/min (>60); Globulin 3.7 g/dL (2.2-4.2); Glucose 93 mg/dL (74-106); Potassium 4.1 mmol/L (3.5-5.1); Protein, Total 7.4 g/dL (6.4-8.2); Sodium Level 136 mmol/L (136-145); Thyroid Stim Hormone (TSH) 0.94 uIU/mL (0.358-3.74)
== END | disposition home or self-care (01) ==
PROVIDERS: PCP Family Medicine Geriatric Medicine; Visit Provider Family Medicine Geriatric Medicine
DX: I10 Essential (primary) hypertension (principal); E55.9 Vitamin D deficiency, unspecified
CPT/HCPCS: 36415; 80053; 82306; 84443; 85025

== ENCOUNTER 2022-12-27 06:48 | Emergency (ER) | payer MEDICARE, OTHER, SELFPAY ==
[2022-12-27 06:49] VITALS: BP 159/77; PULSE 60; RESP 16; TEMP 36.2; O2SAT 95; BMI 27.7
--- NOTE | 2022-12-27 07:18 | EX.ED.DYSGE1 ---
HPI History of Present Illness Chief Complaint: Allergic Reaction Detail of Chief Complaint: Blurry vision and pain to eyes Informant: patient Narrative Narrative: Patient presents with blurry vision that has had for 3 days. Patient states that he had a tooth extracted last week. 3 days ago while taking trash out got stung by an insect on his right thumb and subsequently developed some swelling to his face that evening. Patient took 1 dose of Levaquin. Describes blurry vision for the last 3 days and burning sensation to his eyes. He had a little bit of a runny nose. Denies any chemicals in his eyes. He has had no fevers or chills or sweats. PFSH [facility] Medical History (Updated 12/27/22 @ 09:[address] Candy Haywood, DO) DVT (deep venous thrombosis) Hx of cataract Home Medications verapamil 240 mg 24 hr capsule,extended release 240 mg PO BID 09/10/14 [History Last Taken 06/24/16] apixaban 5 mg tablet (Eliquis) 10 mg PO DAILY 12/27/22 [History Last Taken Unknown] clindamycin HCl 300 mg capsule (Cleocin HCl) 300 mg PO Q6H #40 CAPSULES 12/27/22 [Rx Last Taken Unknown] levofloxacin 500 mg tablet 500 mg PO DAILY 12/27/22 [History Last Taken Unknown] valsartan 160 mg tablet 160 mg PO DAILY 12/27/22 [History Last Taken Unknown] Allergy/AdvReac Type Severity Reaction Status Date / Time banana Allergy Unknown Verified 12/27/22 06:49 chocolate flavor Allergy Unknown Verified 12/27/22 06:49 mold Allergy Unknown Verified 12/27/22 06:49 ragweed pollen Allergy Unknown Verified 12/27/22 06:49 balsam enrique AdvReac Unknown Verified 12/27/22 06:49 diazolidinyl urea AdvReac Unknown Verified 12/27/22 06:49 PHENYLENEDIAMINE AdvReac Unknown Uncoded 07/20/16 09:36 Surgical History (Updated 12/27/22 @ 06:53 by Phillip Parish) Hx of cholecystectomy Social History Smoking Status: Former smoker ROS ROS ED Review of Systems ROS Unobtainable: other Constitutional Constitutional ED: Reports lethargy; Denies chills, fever(s), sweats or weight loss Eyes Eyes: Reports blurry vision; Denies change in vision or diplopia ENT ENT ED: Denies rhinorrhea or sore throat Cardiovascular Cardiovascular: Denies chest pain, orthopnea or racing heartbeat Respiratory/Chest Respiratory/Chest: Denies cough, dyspnea, dyspnea on exertion, orthopnea or sputum Gastrointestinal Gastrointestinal: Denies abdominal pain, diarrhea, nausea or vomiting Genitourinary Genitourinary ED: Denies dysuria, hematuria or urinary frequency Musculoskeletal Musculoskeletal: Denies arthralgias, back pain, myalgias or neck pain Integumentary Denies abscess, Abrasions or rash Neurologic Neurologic: Denies headache(s) or weakness Psychiatric Psychiatric: Denies anxiety, depression or suicidal thoughts Endocrine Endocrinology: Denies polydipsia, polyphagia or polyuria Hematologic/Lymphatic Hematologic/Lymphatic: Denies easy bleeding, easy bruising or lymphadenopathy Allergic/Immunologic Allergic/Immunologic ED: Denies mouth swelling, tongue swelling or urticaria EXAM Physical Exam Const Vital Signs: 12/27/22 06:49 12/27/22 09:55 Temperature 97.1 F L Temperature Source Temporal Pulse Rate 60 58 L Respiratory Rate 16 18 Blood Pressure 159/77 H 145/106 H Blood Pressure Mean 104 Pulse Ox 95 96 Oxygen Delivery Method Room Air Positive well nourished and well developed General Appearance ED: well developed and NAD HEENT Reports TM's clear and moist mucous membranes HEENT Narrative: Diffuse conjunctival erythema bilaterally. Patient does have some minimal soft tissue swelling over the left lower eyelid. Patient has tenderness palpation around the area of prior dental extraction left upper canine however no evidence of dental abscess noted. normocephalic and atraumatic; Negative for trauma or tenderness Tympanic Membrane ED: Yes TM's clear Eyes PERRL and EOMs intact bilaterally General Eye ED: Negative for pale conjunctiva or scleral icterus Neck no lymphadenopathy, supple and no JVD General: Negative for tenderness Chest Wall inspection of chest normal and palpation of chest normal Chest: Negative for tenderness Resp normal respiratory effort and clear to auscultation bilaterally Effort and Inspection: Negative for respiratory distress or pain with movement Auscultation: Negative for rhonchi, wheezes or diminished lung sounds Cardio regular rate, regular rhythm, S1 normal heart sound, S2 normal heart sound and no murmurs Peripheral Pulses: pulses 2+ throughout GI normal to inspection, nondistended, normoactive bowel sounds, soft to palpation, non-tender, non-distended and no masses Back/Spine no CVA tenderness and no thoracic nor lumbar tenderness Extremity normal to inspection General Extremety ED: Negative for edema General Extremity: Negative for edema Neuro oriented x3, CN's II-XII intact bilaterally, no sensory deficits noted and gait normal Sensorium / Orientation: awake, alert, oriented to person, oriented to place and oriented to time Motor Exam: strength 5/5 throughout and strength abnormal Psych mental status grossly normal Skin no rashes or lesions noted and no wounds MDM MDM MDM Narrative Medical decision making narrative: Patient presents with blurred vision and what appears to be clinically conjunctivitis. Patient case discussed with ophthalmology Dr. Gonzalez who recommended we obtain a CT scan of the orbits which was performed. And there was some periorbital soft tissue swelling noted but otherwise no acute findings. Patient will be discharged to Dr. Gonzalez's office for further evaluation. She did not want me to start him on antibiotics at this time. He did receive tetracaine in both eyes and had good pain relief with that. Radiography Diagnostic Testing: Clinical Impression(s) from Imaging Studies Facial/Sinus 12/27/22 08:41 IMPRESSION: Mild degree of left periorbital swelling. Nodular mucosal thickening at the bases of the maxillary sinuses and anterior ethmoid sinus. Electronically Signed: Duane Davey MD at 9:29 EDT , Discharge Plan Triage Chief Complaint: Allergic Reaction ED Provider: Candy Haywood Dx/Rx/DC Orders Clinical Impression: Blurred vision, Conjunctivitis, Pain, dental Instructions: ED Blurred Vision, ED Conjunctivitis, Nonspecific, ED Dental Pain Prescriptions: New clindamycin HCl [Cleocin HCl] 300 mg capsule 300 mg PO Q6H Qty: 40 0RF No Action verapamil 240 MG capsule,ext rel. pellets 24 hr 240 mg PO BID Patient Comments: BLOOD PRESSURE levofloxacin 500 mg tablet 500 mg PO DAILY valsartan 160 mg tablet 160 mg PO DAILY Eliquis 5 mg tablet 10 mg PO DAILY Patient Comments: TAKE 1 TABLET BY MOUTH TWICE A DAY Primary Care Provider: Ramiro Driver Chi Referrals: Ramiro Driver Chi, MD [Primary Care Provider] - Activity Restrictions/Additional Instructions: Go directly to Dr. Gonzalez's office and she will see you this morning for further evaluation and treatment Disposition Disposition: Home, Self Care Discharge Date/Time: 12/27/22 09:56
--- NOTE | 2022-12-27 08:41 | CT_ITS ---
STUDY: CT FACIAL BONES WITHOUT CONTRAST REASON FOR EXAM: Male, 77 years old. Eye pain AND SWELLING RADIATION DOSAGE (If Supplied By Facility): CTDIvol = ( 25.01 ) mGy, DLP = ( 473.62 ) mGycm TECHNIQUE: The patient was scanned in a multi detector CT scanner. Sagittal and coronal images were reconstructed. Individualized dose optimization techniques were used for this CT. COMPARISON: None. FINDINGS: Mild degree of left periorbital swelling. Normal orbital moe and orbital contents. Normal nasal bones and anterior nasal spine. Normal facial bones. There is no demonstrated fracture. Nodular mucosal thickening of the maxillary sinuses bilaterally. Minimal mucosal thickening of the anterior ethmoid sinuses. CT/Sinus/Facial Bone IMPRESSION: Mild degree of left periorbital swelling. Nodular mucosal thickening at the bases of the maxillary sinuses and anterior ethmoid sinus. Electronically Signed: Duane Davey MD at 9:29 EDT ,
[2022-12-27] MEDS: Tetracaine 0.5% Ophthalmic Bottle 1 DRP EACH EYE (08:50)
[2022-12-27 09:55] VITALS: BP 145/106; PULSE 58; RESP 18; O2SAT 96
== END 2022-12-27 09:56 | disposition home or self-care (01) ==
PROVIDERS: Emergency Provider Emergency Medicine; PCP Family Medicine Geriatric Medicine; Visit Provider Emergency Medicine
DX: H10.9 Unspecified conjunctivitis (principal); K08.89 Other specified disorders of teeth and supporting structures; H53.8 Other visual disturbances; Z87.891 Personal history of nicotine dependence; Z79.899 Other long term (current) drug therapy
CPT/HCPCS: 70486; 99282

== ENCOUNTER → 2023-03-15 | Outpatient (CLI) | payer MEDICARE, OTHER, SELFPAY ==
[2023-03-15 14:16] LABS: Absolute Lymphocyte Count 2.45 X10^3/uL (0.83-4.51); Absolute Neutrophil Count 4.2 X10^3/uL (2.0-7.7); Basophil# 0.04 X10^3/uL; Basophil% 0.5 % (0-1); Eosinophil# 0.27 X10^3/uL; Eosinophils% 3.5 % (0-5); Lymphocyte # 2.45 X10^3/ul (0.83-4.51); Lymphocyte % 31.7 % (19-41); Mean Corp Hgb Conc 31.9 g/dL (32-36); Mean Corpuscular Hgb 30.9 pg (27.0-32.0); Mean Corpuscular Volume 96.9 fL (80-94); Monocyte% 10.3 % (0-10); NRBC Flagged by Analyzer 0 % (0-5); Neutrophil # 4.15 X10^3/uL (2.7-7.7); Neutrophil % 53.7 % (47-70); Platelet Count 196 K/mm3 (150-450); RBC Distribution Width SD 46.6 fl (35.1-43.9); Red Blood Count 4.85 M/mm3 (4.6-6.2); White Blood Count 7.7 K/mm3 (4.4-11.0)
[2023-03-15 14:25] LABS: Vitamin D,25 Hydroxy 41.4 ng/mL
[2023-03-15 14:34] LABS: ALB/GLOB Ratio 1.2 RATIO (0.9-2.4); AST(SGOT) 17 U/L (15-37); Alanine Aminotransfer ALT/SGPT 24 U/L (16-61); Albumin, Serum 3.7 g/dL (3.2-5.0); Alkaline Phosphatase 66 U/L (45-117); Anion Gap 7 (5-15); BUN 18 mg/dL (7-18); BUN/Creat Ratio 19.3 RATIO (10-20); Calcium,Total 8.6 mg/dL (8.5-10.1); Chloride 112 mmol/L (98-107); Creatinine, Serum 0.94 mg/dL (0.70-1.30); EST Glomerular Filtration Rate 83 mL/min (>60); Est Glom Filt Rate - Afr Amer 101 mL/min (>60); Globulin 3.2 g/dL (2.2-4.2); Glucose 108 mg/dL (74-106); Potassium 3.9 mmol/L (3.5-5.1); Protein, Total 6.9 g/dL (6.4-8.2); Sodium Level 141 mmol/L (136-145); Thyroid Stim Hormone (TSH) 0.84 uIU/mL (0.358-3.74)
== END | disposition home or self-care (01) ==
LOC: POLAB3 13:28
PROVIDERS: PCP Family Medicine Geriatric Medicine; Visit Provider Family Medicine Geriatric Medicine
DX: I10 Essential (primary) hypertension (principal); E55.9 Vitamin D deficiency, unspecified
CPT/HCPCS: 36415; 80053; 82306; 84443; 85025

== ENCOUNTER → 2023-09-11 | Outpatient (CLI) | payer MEDICARE, OTHER, SELFPAY ==
[2023-09-11 14:28] LABS: Absolute Lymphocyte Count 1.78 X10^3/uL (0.83-4.51); Absolute Neutrophil Count 5.6 X10^3/uL (2.0-7.7); Basophil# 0.04 X10^3/uL; Basophil% 0.5 % (0-1); Eosinophil# 0.28 X10^3/uL; Eosinophils% 3.2 % (0-5); Hematocrit 44.1 % (40-54); Hemoglobin 14.4 g/dL (13.0-16.5); Lymphocyte # 1.78 X10^3/ul (0.83-4.51); Lymphocyte % 20.5 % (19-41); Mean Corp Hgb Conc 32.7 g/dL (32-36); Mean Corpuscular Hgb 31.2 pg (27.0-32.0); Mean Corpuscular Volume 95.7 fL (80-94); Mean Platelet Vol. 10.6 fl (6.2-12.0); Monocyte# 0.92 X10^3/uL; Monocyte% 10.6 % (0-10); NRBC Flagged by Analyzer 0 % (0-5); Neutrophil # 5.62 X10^3/uL (2.7-7.7); Neutrophil % 64.9 % (47-70); Platelet Count 180 K/mm3 (150-450); RBC Distribution Width CV 13.2 % (11.6-14.6); RBC Distribution Width SD 46.5 fl (35.1-43.9); Red Blood Count 4.61 M/mm3 (4.6-6.2); White Blood Count 8.7 K/mm3 (4.4-11.0)
[2023-09-11 15:28] LABS: Vitamin D,25 Hydroxy 39.5 ng/mL
[2023-09-11 15:33] LABS: ALB/GLOB Ratio 1.1 RATIO (0.9-2.4); AST(SGOT) 21 U/L (15-37); Alanine Aminotransfer ALT/SGPT 31 U/L (16-61); Albumin, Serum 3.5 g/dL (3.2-5.0); Alkaline Phosphatase 66 U/L (45-117); Anion Gap 5 (5-15); BUN 15 mg/dL (7-18); Calcium,Total 8.4 mg/dL (8.5-10.1); Chloride 114 mmol/L (98-107); Creatinine, Serum 0.94 mg/dL (0.70-1.30); EST Glomerular Filtration Rate 83 mL/min (>60); Est Glom Filt Rate - Afr Amer 101 mL/min (>60); Globulin 3.1 g/dL (2.2-4.2); Glucose 110 mg/dL (74-106); Potassium 3.8 mmol/L (3.5-5.1); Protein, Total 6.6 g/dL (6.4-8.2); Sodium Level 141 mmol/L (136-145); Thyroid Stim Hormone (TSH) 0.71 uIU/mL (0.358-3.74)
== END | disposition home or self-care (01) ==
LOC: POLAB3 13:44
PROVIDERS: PCP Family Medicine Geriatric Medicine; Visit Provider Family Medicine Geriatric Medicine
DX: I10 Essential (primary) hypertension (principal); E55.9 Vitamin D deficiency, unspecified
CPT/HCPCS: 36415; 80053; 82306; 84443; 85025

== ENCOUNTER → 2024-03-18 | Outpatient (CLI) | payer MEDICARE, OTHER, SELFPAY ==
[2024-03-18 10:25] LABS: Absolute Lymphocyte Count 1.68 X10^3/uL (0.83-4.51); Absolute Neutrophil Count 4.7 X10^3/uL (2.0-7.7); Basophil# 0.03 X10^3/uL; Basophil% 0.4 % (0-1); Eosinophil# 0.22 X10^3/uL; Eosinophils% 2.9 % (0-5); Hematocrit 47.9 % (40-54); Hemoglobin 15.7 g/dL (13.0-16.5); Lymphocyte # 1.68 X10^3/ul (0.83-4.51); Lymphocyte % 22.3 % (19-41); Mean Corp Hgb Conc 32.8 g/dL (32-36); Mean Corpuscular Hgb 30.8 pg (27.0-32.0); Mean Corpuscular Volume 94.1 fL (80-94); Mean Platelet Vol. 10.1 fl (6.2-12.0); NRBC Flagged by Analyzer 0 % (0-5); Neutrophil # 4.67 X10^3/uL (2.7-7.7); Platelet Count 192 K/mm3 (150-450); Red Blood Count 5.09 M/mm3 (4.6-6.2); White Blood Count 7.5 K/mm3 (4.4-11.0)
[2024-03-18 10:54] LABS: Vitamin D,25 Hydroxy 25.3 ng/mL
[2024-03-18 11:03] LABS: AST(SGOT) 15 U/L (15-37); Alanine Aminotransfer ALT/SGPT 25 U/L (16-61); Albumin, Serum 3.6 g/dL (3.2-5.0); Alkaline Phosphatase 73 U/L (45-117); Anion Gap 4 (5-15); BUN 21 mg/dL (7-18); BUN/Creat Ratio 21.5 RATIO (10-20); Chloride 110 mmol/L (98-107); Creatinine, Serum 0.98 mg/dL (0.70-1.30); EST Glomerular Filtration Rate 79 mL/min (>60); Est Glom Filt Rate - Afr Amer 96 mL/min (>60); Globulin 3.5 g/dL (2.2-4.2); Glucose 89 mg/dL (74-106); Potassium 4.1 mmol/L (3.5-5.1); Protein, Total 7.1 g/dL (6.4-8.2); Sodium Level 136 mmol/L (136-145)
== END | disposition home or self-care (01) ==
LOC: LAB 09:30
PROVIDERS: PCP Family Medicine Geriatric Medicine; Referring Provider Family Medicine Geriatric Medicine; Visit Provider Family Medicine Geriatric Medicine
DX: I10 Essential (primary) hypertension (principal); E55.9 Vitamin D deficiency, unspecified
CPT/HCPCS: 36415; 80053; 82306; 84443; 85025

== ENCOUNTER 2024-07-29 13:39 | Emergency (ER) | payer MEDICARE, OTHER, SELFPAY ==
[2024-07-29 13:42] VITALS: BP 152/79; PULSE 65; RESP 18; TEMP 36.3; O2SAT 97; BMI 29.7
--- NOTE | 2024-07-29 14:26 | EX.ED.UPPERE ---
HPI History of Present Illness Chief Complaint: Fall Informant: patient Narrative Narrative: Ambidextrous male mechanical fall few hours ago in restoration. Tripped when he hit his foot on a pew. Injury directed to the shoulder. No head injuries. No loss of conscious. No headache or neck pain. Pain to shoulder worse with movement. He is on Eliquis for history of DVT. Denies any lower extremity pain. PFSH PFSH Medical History Hx of cataract DVT (deep venous thrombosis) Home Medications ?Medication ?Instructions ?Recorded ?Last Taken ?Type verapamil 240 mg 24 hr 240 mg PO BID 09/10/14 06/24/16 History capsule,extended release apixaban 5 mg tablet (Eliquis) 10 mg PO DAILY 12/27/22 Unknown History clindamycin HCl 300 mg capsule 300 mg PO Q6H #40 CAPSULES 12/27/22 Unknown Rx (Cleocin HCl) levofloxacin 500 mg tablet 500 mg PO DAILY 12/27/22 Unknown History valsartan 160 mg tablet 160 mg PO DAILY 12/27/22 Unknown History Allergy/AdvReac Type Severity Reaction Status Date / Time banana Allergy Unknown Verified 07/29/24 13:42 cashew nut (cashews) Allergy PT UNSURE Verified 07/29/24 13:46 OF REACTION chocolate flavor Allergy Unknown Verified 07/29/24 13:42 Environmental Allergies: Allergy NEEDS Verified 07/29/24 13:42 Uncoded FOLLOW-UP epoxy resin Allergy PT UNSURE Verified 07/29/24 13:46 OF REACTION mold Allergy Unknown Verified 07/29/24 13:42 ragweed pollen Allergy Unknown Verified 07/29/24 13:42 balsam enrique AdvReac Unknown Verified 07/29/24 13:42 diazolidinyl urea AdvReac Unknown Verified 07/29/24 13:42 Surgical History Hx of cholecystectomy Social History Smoking Status: Former smoker ROS ROS ED Constitutional Constitutional ED: Denies chills, fever(s) or sweats ENT ENT ED: Denies sore throat Cardiovascular Cardiovascular: Denies chest pain, leg edema, palpitations or racing heartbeat Respiratory/Chest Respiratory/Chest: Denies cough, dyspnea or dyspnea on exertion Gastrointestinal Gastrointestinal: Denies abdominal pain, diarrhea, nausea or vomiting Genitourinary Genitourinary ED: Denies dysuria, hematuria or urinary frequency Musculoskeletal Musculoskeletal: Reports extremity pain; Denies back pain or neck pain Integumentary Denies rash or wounds Neurologic Neurologic: Denies headache(s), paresthesias or weakness EXAM Physical Exam Const Vital Signs: 07/29/24 13:42 Temperature 97.4 F L Temperature Source Temporal Pulse Rate 65 Respiratory Rate 18 Blood Pressure 152/79 H Blood Pressure Mean 103 Pulse Ox 97 Oxygen Delivery Method Room Air Positive well nourished and well developed Constitutional Narrative: GCS 15. General Appearance ED: well developed and NAD HEENT Reports moist mucous membranes normocephalic and atraumatic Eyes General Eye ED: Yes normal appearance of both eyes Neck full ROM Neck Narrative: No midline tenderness no step-offs. Chest Wall inspection of chest normal and palpation of chest normal Chest: Negative for tenderness Resp normal respiratory effort and normal air movement Effort and Inspection: symmetric chest movement; Negative for respiratory distress Cardio regular rate, regular rhythm and no murmurs Peripheral Pulses: pulses 2+ throughout GI normal to inspection, nondistended, normoactive bowel sounds and non-tender Palpation: Negative for guarding or rebound tenderness present Extremity Extremity Narrative: Lower extremities negative logroll was able to ambulate without pain. Right upper extremity: Full range of motion on any tenderness. Left upper extremity: No clavicle tenderness no acromioclavicular tenderness. Mild tenderness proximal shoulder pain with flexion of the shoulder and abduction of the shoulder there is no deformities. Pain at bicipital groove with positive speeds test. Pain with internal rotation shoulder against resistance. No pain with external rotation without resistance. Pain with abduction of the shoulder. No mid humerus tenderness. No elbow tenderness. Soft compartments. Neuro vas intact distally. General Extremety ED: Yes tenderness; Negative for edema General Extremity: Negative for edema Neuro oriented x3 and no sensory deficits noted Sensorium / Orientation: awake and alert Skin no rashes or lesions noted and no wounds MDM MDM MDM Narrative Medical decision making narrative: Interventions / MDM: Differential diagnosis: Rotator cuff strain, shoulder strain, tendinitis Diagnosis considered but do not suspect: Fracture/dislocation however x-ray negative. My EKG interpretation: N/A Imaging independently reviewed and interpreted by myself: Left shoulder 4 views: No fracture or dislocation noted osteoarthritic changes noted. External documents reviewed: N/A Test considered but not ordered:N/A ED course: Patient patient mechanical fall no head injuries GCS 15. Pain to left shoulder. Clinically no dislocation. Will x-ray left shoulder. Tylenol ordered for symptom control. 1500: X-ray interpreted myself negative. Discussed rotator cuff strain along with tendinitis with pain in the bicipital groove. Discussed avoiding overhead movements he will continue Tylenol every 6 hours. He will follow-up with his PCP. All questions were answered. Re-evaluation: stable Disposition discussed with patient/family/significant other: Patient Case discussed with consulting clinician: N/A This note was generated with [employer] dictation software. It may contain incorrect words, spelling, and punctuation that were not noted in checking the note before signing. Discharge Plan Triage Chief Complaint: Fall Other Complaint: Upper Extremity Injury ED Provider: Rei Galloway Dx/Rx/DC Orders Clinical Impression: Left shoulder strain, Fall Instructions: ED Shoulder Sprain Prescriptions: No Action verapamil 240 MG capsule,ext rel. pellets 24 hr 240 mg PO BID Patient Comments: BLOOD PRESSURE levofloxacin 500 mg tablet 500 mg PO DAILY valsartan 160 mg tablet 160 mg PO DAILY Eliquis 5 mg tablet 10 mg PO DAILY Patient Comments: TAKE 1 TABLET BY MOUTH TWICE A DAY clindamycin HCl [Cleocin HCl] 300 mg capsule 300 mg PO Q6H Qty: 40 0RF Primary Care Provider: Ramiro Driver Chi Referrals: Ramiro Driver Chi, MD [Primary Care Provider] - Activity Restrictions/Additional Instructions: X-ray negative. Continue Tylenol up to 1 g every 6 hours as needed. Follow-up with your doctor. Print Language: Cameroonian Disposition Disposition: Home, Self Care Discharge Date/Time: 07/29/24 15:07
--- NOTE | 2024-07-29 14:40 | RAD_ITS ---
EXAM: XR Left Shoulder Complete, 2 or More Views CLINICAL INDICATION: TECHNIQUE: Two or more views of the left shoulder. COMPARISON: No relevant prior studies available. FINDINGS: BONES/JOINTS: Mild degenerative change of the acromioclavicular and glenohumeral joints. No acute fracture. No dislocation. SOFT TISSUES: Soft tissue swelling. RAD/Shoulder min 2 Views IMPRESSION: Degenerative changes as above. Reading Location: [facility]
[2024-07-29] MEDS: Acetaminophen 500 MG Tablet 1000 MG PO (14:48)
== END 2024-07-29 15:07 | disposition home or self-care (01) ==
PROVIDERS: Emergency Provider Emergency Medicine; PCP Family Medicine Geriatric Medicine; Referring Provider Emergency Medicine; Visit Provider Emergency Medicine
DX: S46.912A Strain of unspecified muscle, fascia and tendon at shoulder and upper arm level, left arm, initial encounter (principal); Z86.718 Personal history of other venous thrombosis and embolism; Z79.01 Long term (current) use of anticoagulants; Z87.891 Personal history of nicotine dependence; W01.0XXA Fall on same level from slipping, tripping and stumbling without subsequent striking against object, initial encounter
CPT/HCPCS: 73030; 99283

== ENCOUNTER → 2024-09-12 | Outpatient (CLI) | payer MEDICARE, OTHER, SELFPAY ==
[2024-09-12 10:22] LABS: Absolute Lymphocyte Count 1.88 X10^3/uL (0.83-4.51); Absolute Neutrophil Count 4.3 X10^3/uL (2.0-7.7); Basophil# 0.04 X10^3/uL; Basophil% 0.5 % (0-1); Eosinophil# 0.17 X10^3/uL; Eosinophils% 2.3 % (0-5); Hematocrit 44.9 % (40-54); Hemoglobin 15.1 g/dL (13.0-16.5); Lymphocyte # 1.88 X10^3/ul (0.83-4.51); Lymphocyte % 25.7 % (19-41); Mean Corp Hgb Conc 33.6 g/dL (32-36); Mean Corpuscular Hgb 32.3 pg (27.0-32.0); Mean Corpuscular Volume 96.1 fL (80-94); Mean Platelet Vol. 10.4 fl (6.2-12.0); Monocyte# 0.92 X10^3/uL; Monocyte% 12.6 % (0-10); NRBC Flagged by Analyzer 0 % (0-5); Neutrophil # 4.27 X10^3/uL (2.7-7.7); Neutrophil % 58.5 % (47-70); Platelet Count 196 K/mm3 (150-450); RBC Distribution Width CV 13.4 % (11.6-14.6); RBC Distribution Width SD 47.7 fl (35.1-43.9); Red Blood Count 4.67 M/mm3 (4.6-6.2); White Blood Count 7.3 K/mm3 (4.4-11.0)
[2024-09-12 11:21] LABS: ALB/GLOB Ratio 1.6 RATIO (0.9-2.4); AST(SGOT) 27 U/L (<=37); Alanine Aminotransfer ALT/SGPT 28 U/L (<=46); Albumin, Serum 4.1 g/dL (3.4-4.8); Alkaline Phosphatase 71 U/L (40-129); Anion Gap 11 (5-15); BUN 16 mg/dL (4-19); BUN/Creat Ratio 14.8 RATIO (10-20); Carbon Dioxide 21.1 mmol/L (21.0-32.0); Chloride 107 mmol/L (98-108); Creatinine, Serum 1.07 mg/dL (0.70-1.20); EST Glomerular Filtration Rate 71 (>60); Globulin 2.6 g/dL (2.2-4.2); Glucose 101 mg/dL (70-99); Protein, Total 6.7 g/dL (5.9-8.4); Sodium Level 139 mmol/L (133-145); Total Bilirubin 0.65 mg/dL (0.00-1.30); Vitamin D,25 Hydroxy 23.7 ng/mL (30-100)
== END | disposition home or self-care (01) ==
LOC: LAB 09:32
PROVIDERS: PCP Family Medicine Geriatric Medicine; Referring Provider Family Medicine Geriatric Medicine; Visit Provider Family Medicine Geriatric Medicine
DX: I10 Essential (primary) hypertension (principal); E55.9 Vitamin D deficiency, unspecified
CPT/HCPCS: 36415; 80053; 82306; 84443; 85025

== ENCOUNTER → 2025-01-16 | Outpatient (CLI) | payer MEDICARE, OTHER, SELFPAY ==
--- NOTE | 2025-01-16 16:15 | RAD_ITS ---
PROCEDURE: CHEST PA AND LATERAL 01/16/2025 REASON FOR EXAM: WHEEZING/CONGESTION TECHNIQUE: CHEST PA AND LATERAL COMPARISON: None. FINDINGS: LUNGS AND PLEURA: The lungs are clear. No pleural effusion or pneumothorax. HEART AND MEDIASTINUM: The heart size and mediastinal contours are normal. BONES: No acute osseous abnormality. 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 An IVC filter is present at the L2 level. RAD/Chest PA and Lateral IMPRESSION: NO ACUTE FINDINGS. Reading Location: [id number]
== END | disposition home or self-care (01) ==
PROVIDERS: PCP Family Medicine Geriatric Medicine; Referring Provider Family Medicine Geriatric Medicine; Visit Provider Family Medicine Geriatric Medicine
DX: J98.8 Other specified respiratory disorders (principal); R06.2 Wheezing
CPT/HCPCS: 71046

== ENCOUNTER → 2025-01-16 | Outpatient (CLI) | payer MEDICARE, OTHER, SELFPAY ==
--- OUTSIDE RECORDS SUMMARY | 2025-01-16 20:14 | XMS RPT_ITS | CCD ---
Author Organization [facility] Inform ion Partnership [facility] Care Team Providers Care Erp Analyst Name Role Phone Dossi Arleen VILLEGAS Unavailable MICHELET JACOBO, DR KHAN Primary Care Physician DANIEL DOWLING Attending Unavailable MICHELET JACOBO, DR KHAN Primary Care Unavailable MADHU SAUNDERS Attending Mitchell TAFOYA MD, DR KHAN Primary Care Unavailable MICHELET JACOBO, DR KHAN Primary Care Unavailable RADHA DUNCAN DO Attending Unavailable Michelet JACOBO, Dr. Ramiro Coe Primary Care Provider [phone] Dr. Rei Galloway DO Referring Provider [phone] Rei Gallowya DO Emergency Provider Michelet, Ramiro Chi Primary Care Unavailable Michelet, Ramiro Chi Attending Unavailable Michelet, Ramiro Chi Referring Unavailable Michelet, Ramiro Chi Primary Care Unavailable Michelet, Ramiro Chi Attending Unavailable Michelet, Ramiro Chi Referring Unavailable Michelet, Ramiro Chi Primary Care Unavailable Rei Galloway Attending Unavailable Rei Galloway Referring Unavailable Allergies Allergy Classification Reported Allergen(s) Allergy Type Date of Onset Reaction(s) Facility (12 sources) AMBERDERM drug allergy 12-28-19 17 [employer] [facility] Work Phone: (6 sources) Banana Extract Drug Allergy 07-21-19 17 Unknown [facility] (7 sources) Chocolate; Translations: [chocolate flavor] Allergy to substance 07-21-19 17 Unknown [facility] (6 sources) diazolidinylurea Drug Allergy 07-21-19 17 Unknown [facility] (6 sources) Mold Extract Drug Allergy 07-21-19 17 Unknown [facility] (6 sources) Guyanese balsam Drug Allergy 07-21-19 17 Unknown [facility] (7 sources) Ragweed pollen; Translations: [ragweed pollen] Allergy to substance 07-21-19 Unknown [facility] (3 sources) PHENYLENEDIAMINE Propensity to adverse reactions 07-21-19 Unknown [facility] (3 sources) alteplase; Translations: [alteplase] Drug Allergy [facility] (3 sources) unknown antibiotic 1 Drug allergy [facility] Comment on above: Allergic to an unkno wn antibiotic per H&P of Dr. Jen Herrmann 181807/20/2016, which was transcribed 210007/20/2016, 210607/20/2016JO (4 sources) Environmental Allergies: Uncoded; Translations: [Environmental Allergies: Uncoded] Allergy to substance 01-18-20 23 NEEDS FOLLOW-UP [facility] Comment on above: phenylenediamine (1 source) cashew nut allergenic extract Drug Allergy 07-30-19 25 PT UNSURE OF REACTION [facility] (2 sources) epoxy resin; Translations: [epoxy resin] Allergy to substance 07-30-19 25 PT UNSURE OF REACTION [facility] (1 source) Banana Extract Drug Allergy 07-30-19 25 [facility] Repository (1 source) cashew nut allergenic extract Drug Allergy 07-30-19 25 [facility] Repository (1 source) diazolidinylurea Drug Allergy 07-30-19 25 [facility] Repository (1 source) Mold Extract Drug Allergy 07-30-19 25 [facility] Repository (1 source) Enriqueta paulasam Drug Allergy 07-30-19 25 [facility] Repository Medications Current Medications Medication Drug Class(es) Dates Sig (Normalized) Sig (Original) apixaban 5 mg oral tablet (7 sources) Factor Xa Inhibitor Start: 04-08-2024 End: 11-04-2024 Eliquis 5 mg oral tablet Dose : 5 mg = 1 tab(s), Oral, BID, # 60 tab(s), 6 Refill(s), Pharmacy: [facility]/pharmacy #[id number], 177, cm, 06/28/23 14:07:00 EST, Height, 83.1, kg, 06/28/23 14:07:00 EST, Dosing Weight Start Date: 04/08/24 Stop Date: 11/04/24 Status: Ordered Quantity: 60.0 Unit: tab(s) Repeat number: 7 Start: 12-27-2022 take 1 tablet by isabel th once daily Apixaban (Apixaban 5 Mg Tablet) 5 mg tablet Active 10 mg PO DAILY December 27, 2022 12:00am Start: 05-19-2022 Eliquis 5 mg o ral tablet Dose : 5 mg = 1 tab(s), Oral, BID, # 180 tab(s), 1 Refill(s), Pharmacy: [facility]/pharmacy #[id number], 177, cm, 05/19/22 15:26:00 EST, Height, 88.2, kg, 05/19/22 15:26:00 EST, Dosing Weight Start Date: 01/02/23 Status: Ordered ascorbic acid 500 mg oral tablet (1 source) Vitamin C Start: 06-28-2023 take 1 dose by mouth once daily Vitamin C Dose : 500 mg =, Oral, qDay, 0 Refill(s) Start Date: 06/28/23 Status: Ordered Repeat number: 1 calcium citrate 1040 mg oral tablet (2 sources) Start: 05-19-2022 take 1 mg by mouth twice daily calcium (as calcium citrate) 250 mg oral tablet mg = tab(s), Oral, BID, 0 Refill(s) Start Date: 05/19/22 Status: Ordered Repeat number: 1 Cholecalciferol (2 sources) Vitamin D Start: 05-19-2022 take 1 capsule by mouth once daily Vitamin D (3) 45 units oral capsule Dose : 10 mcg =, Oral, qDay, 0 Refill(s) Start Date: 05/19/22 Status: Ordered Repeat number: 1 Start: 05-19-2022 Vitamin D (3) 45 units oral capsule 0 Refill(s) Start Date: 05/19/22 Status: Ordered clindamycin 300 mg oral capsule (4 sources) Lincosamide Antibacterial Start: 12-27-2022 take 1 capsule by mouth every six hours Clindamycin Hcl (Cleocin Hcl) 300 mg capsule Active 300 mg PO EVERY 6 HOURS 40 December 27, 2022 12:00am dabigatran etexilate 150 mg oral capsule (20 sources) Start: 05-12-2022 Pradaxa 150 mg oral capsule Dose : 150 mg = 1 cap(s), Oral, BID, # 60 cap(s), 11 Refill(s), [id number] 177, cm, 05/19/21 13:26:00 EST, Height, 85, kg, 05/19/21 13:26:00 EST, Dosing Weight Start Date: 05/12/22 Status: Ordered Start: 05-19-2021 Pradaxa 150 mg oral capsule Dose : 150 mg = 1 cap(s), Oral, BID, # 60 cap(s), 11 Refill(s), Pharmacy: [facility]/pharmacy #[id number], 177, cm, 05/19/21 13:26:00 EST, Height, 85, kg, 05/19/21 13:26:00 EST, Dosing Weight Start Date: 05/19/21 Status: Ordered Start: 12-27-2016 PRADAXA 150 MG CAPS twice daily DABIGATRAN ETEXILATE MESYLATE [id number] Arleen Zambrano DC Start: 07-12-2016 End: 12-27-2022 take 1 capsule by mouth twice daily Dabigatran Etexilate (Pradaxa) 75 MG capsule Discontinued 75 mg PO BID@0600,1800 July 12, 2016 1:00am December 27, 2022 6:56am Start: 09-10-2014 End: 09-17-2014 take 1 capsule by mouth twice daily Dabigatran Etexilate (Pradaxa) 150 MG capsule Discontinued 150 mg PO BID@0600,1800 September 10, 2014 12:00am September 17, 2014 8:33am dexlansoprazole 60 mg delayed release oral capsule (2 sources) Proton Pump Inhibitor Start: 07-20-2016 take 1 capsule by mouth once daily Dexlansoprazole (Dexilant) 60 MG Albert.Bp Active 60 MG PO DAILY July 20, 2016 10:37am Vascepa (2 sources) Start: 05-19-2022 Vascepa gram(s) =, Oral, BID, 0 Refill(s) Start Date: 05/19/22 Status: Ordered Repeat number: 1 Start: 05-19-2022 Vascepa gram(s ) =, Oral, BID, 0 Refill(s) Start Date: 05/19/22 Status: Ordered levoFLOXacin 500 mg oral tablet (4 sources) Quinolone Antimicrobial Start: 12-27-2022 take 1 tablet by mouth once daily Levofloxacin 500 mg tablet Active 500 mg PO DAILY December 27, 2022 12:00am magnesium (as citrate)-melatonin 71.5 mg-1 mg oral tablet (2 sources) Start: 05-19-2022 take 1 tablet by mouth once daily magnesium (as citrate)-melatonin 71.5 mg-1 mg oral tablet tab(s), Oral, qDay, 0 Refill(s) Start Date: 05/19/22 Status: Ordered Repeat number: 1 Start: 05-19-2022 take 1 tablet by isabel th once daily magnesium (as citrate)-melatonin 71.5 mg-1 mg oral tablet tab(s), Oral, qDay, 0 Refill(s) Start Date: 05/19/22 Status: Ordered manganese chloride (1 source) Start: 05-19-2022 manganese chloride 0 Refill(s) Start Date: 05/19/22 Status: Ordered triamcinolone acetonide 0.001 mg/mg oral paste (1 source) Corticosteroid Start: 05-19-2022 triamcinolone 0.1% topical paste Oral, 0 Refill(s), 85 Start Date: 05/19/22 Status: Ordered valsartan 160 mg oral tablet (7 sources) Angiotensin 2 Receptor Karlee Start: 05-19-2021 take 1 tablet by mouth once daily Valsartan 160 mg tablet Active 160 mg PO DAILY December 27, 2022 12:00am verapamil hydrochloride 240 mg extended release oral tablet (9 sources) Calcium Channel Karlee Start: 07-20-2016 take 1 tablet by mouth every hour, then take 1 tablet by mouth every twelve hours verapamil 240 mg/12 hours oral tablet, extended release Dose : 240 mg = 1 tab(s), Oral, q12h, # 60 tab(s), 0 Refill(s) Start Date: 07/20/16 Status: Ordered Quantity: 60.0 Unit: tab(s) Repeat number: 1 Start: 09-10-2014 take 1 capsule by mo azh twice daily Verapamil 240 MG capsule,ext rel. pellets 24 hr Active 240 mg PO TWICE A DAY September 10, 2014 12:00am Vitamin D3 50 mcg (2000 intl units) oral capsule (3 sources) Start: 05-19-2021 Vitamin D3 50 mcg (2000 intl units) oral capsule Dose : 2,000 unit(s) = 1 cap(s), Oral, Daily, # 30 cap(s), 0 Refill(s), other reason (Rx) Start Date: 05/19/21 Status: Ordered Quantity: 30.0 Unit: cap(s) Repeat number: 1 Start: 05-19-2021 Vitamin D3 50 mcg (2000 intl units) oral capsule Dose : 2,000 unit(s) = 1 cap(s), Oral, Daily, # 30 cap(s), 0 Refill(s), other reason (Rx) Start Date: 05/19/21 Status: Ordered Zinc (1 source) Start: 05-19-2022 take 1 mg by mouth o nce daily Zinc mg =, Oral, qDay, 0 Refill(s) Start Date: 05/19/22 Status: Ordered Completed/Discontinued Medications Medication Drug Class(es) Dates Sig (Normalized) Sig (Original) Dexlansoprazole (Dexilant) 60 MG capsule,biphase delayed releas (4 sources) Start: 07-20-2016 End: 12-27-2022 take 1 capsule by mouth once daily Dexlansoprazole (Dexilant) 60 MG capsule,biphase delayed releas Discontinued 60 mg PO DAILY July 20, 2016 1:00am December 27, 2022 6:56am Start: 07-20-2016 End: 12-27-2022 take 1 capsule by mouth once daily Dexlansoprazole (Dexilant) 60 MG capsule,biphase delayed releas Discontinued 60 MG PO DAILY July 20, 2016 1:00am December 27, 2022 6:56am losartan potassium 100 mg oral tablet (12 sources) Angiotensin 2 Receptor Karlee Start: 12-27-2016 COZAAR 100 MG TABS once daily LOSARTAN POTASSIUM [id number] Arleen Zambrano DC rosuvastatin calcium 5 mg oral tablet (12 sources) HMG-CoA Reductase Inhibitor Start: 12-27-2016 CRESTOR 5 MG TABS once daily at bedtime ROSUVASTATIN CALCIUM [id number] Arleen Zambrano DC traMADol hydrochloride 50 mg oral tablet (18 sources) Opioid Agonist Start: 07-12-2016 End: 12-27-2022 take 1 tablet by mouth once daily as needed for pain Tramadol 50 MG tablet Discontinued 50 mg PO DAILY as needed for Pain July 12, 2016 1:00am December 27, 2022 6:56am 24 hr trandolapril 1 mg / verapamil hydrochloride 240 mg extended release oral tablet (12 sources) Angiotensin Converting Enzyme Inhibitor, Calcium Channel Karlee Start: 12-27-2016 TRANDOLAPRIL-VERAP JEOVANNY HCL ER 1-240 MG CR-TABS twice daily TRANDOLAPRIL-VERAP JEOVANNY HCL [id number] Arleen Zambrano DC [id number] MMONIA (8 sources) Start: 12-27-2016 ACTIVE INJECTI ON KL-3 40-1 MG/ML-% KIT apply once daily as needed TRIAMCINOLONE-LIDO -AMMONIA [id number] Arleen Zambrano DC [id number] MMONIA (4 sources) Start: 12-27-2016 ACTIVE INJECTI ON KL-3 40-1 MG/ML-% KIT apply once daily as needed TRIAMCINOLONE-LIDO -AMMONIA [id number] Arleen Zambrano DC Problems Active Problems Problem Classification Problem Date Documented Da te Episodic/Chronic Blindness and vision defects (4 sources) Blurring of visual image; Translations: [Other visual disturbances] 12-27-2022 Episodic Coagulation and hemorrhagic disorders (3 sources) 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 Deficiency and other anemia (3 sources) Anemia 07-20-2016 Episodic Disorders of teeth and jaw (4 sources) Toothache; Translations: [Other specified disorders of teeth and supporting structures] 12-27-2022 Episodic Diverticulosis and diverticulitis (3 sources) Diverticulitis 07-20-2016 Chronic E Codes: Fall (1 source) Fall; Translations: [Unspecified fall, initial encounter] 07-29-2024 Episodic Esophageal disorders (3 sources) Gastroesophageal reflux disease 07-20-2016 Chronic Essential hypertension (13 sources) Hypertensive disorder; Translations: [Essential (primary) hypertension] Onset: 7 12-27-2016 Chronic Gastrointestinal hemorrhage (3 sources) Melena 07-20-2016 Episodic Inflammation; infection of eye (except that caused by tuberculosis or sexually transmitteddisease) (4 sources) Conjunctivitis; Translations: [Unspecified conjunctivitis] 12-27-2022 Episodic Osteoarthritis (16 sources) Osteoarthritis; Translations: [Arthritis] Onset: 7 12-27-2016 Chronic Other aftercare (3 sources) Long-term current use of anticoagulant 03-12-2021 Episodic Other connective tissue disease (3 sources) Spasm 07-20-2016 Episodic Other gastrointestinal disorders (3 sources) Constipation 07-20-2016 Episodic Other injuries and conditions due to external causes (1 source) Encounter for examination and observation following other accident; Translations: [Encounter for examination and observation following other accident] Onset: Episodic Other non-traumatic joint disorders (8 sources) Arthritis; Translations: [Unspecified osteoarthritis, unspecified site] Onset: 7 12-27-2016 Chronic Phlebitis; thrombophlebitis and thromboembolism (19 sources) H/O: thrombosis; Translations: [Embolism from thrombosis of vein of distal lower extremity] Onset: 7 12-27-2016 Episodic Pulmonary heart disease (3 sources) Pulmonary embolism 07-20-2016 Episodic Residual codes; unclassified (3 sources) History of insertion of inferior vena caval filter 07-20-2016 Episodic Residual codes; unclassified (3 sources) Edema 07-20-2016 Episodic Screening and history of mental health and substance abuse codes (3 sources) Ex-smoker 03-12-2021 Episodic Spondylosis; intervertebral disc disorders; other back problems (12 sources) Degeneration of lumbar intervertebral disc; Translations: [Other intervertebral disc degeneration, lumbar region] Onset: 7 12-27-2016 Chronic Spondylosis; intervertebral disc disorders; other back problems (6 sources) Spinal stenosis of lumbar region; Translations: [Thoracic radiculopathy] 07-20-2016 Episodic Sprains and strains (1 source) Shoulder strain; Translations: [Strain of unspecified muscle, fascia and tendon at shoulder and upper arm level, left arm, initial encounter] 07-29-2024 Episodic Past or Other Problems Problem Classification Problem Date Documented Da te Episodic/Chronic Other bone disease and musculoskeletal deformities (20 sources) Pelvic somatic dysfunction; Translations: [Segmental and somatic dysfunction] Onset: 12-27-2016 12-27-2016 Episodic Other bone disease and musculoskeletal deformities (8 sources) Segmental and somatic dysfunction; Translations: [Segmental and somatic dysfunction of lumbar region] Onset: 12-27-2016 12-27-2016 Episodic Other circulatory disease (12 sources) Vascular disorder; Translations: [Unspecified disorder of circulatory system] Onset: 12-27-2016 12-27-2016 Episodic Results Test Name Value Interpretation Reference Range Facility CBC W/Diff, Automatedon 08-21 Absolute Lymph 1.88 X10 3/uL Normal 0.83-4.51 [facility] Comment on above: Performed By: #### L [id number], L500.4050, L100.0100, L506.1001 #### [facility] [address] [place], [address] Absolute Neut 4.3 X10 3/uL Normal 2.0-7.7 [facility] Comment on above: Performed By: #### L [id number], L500.4050, L100.0100, L506.1001 #### [facility] [address] [place], [address] Basophils/100 WBC (Bld) 0.5 % Normal 0-1 [facility] Comment on above: Performed By: #### L [id number], L500.4050, L100.0100, L506.1001 #### [facility] [address] [place], [address] Eosinophils/100 WBC (Bld) 2.3 % Normal 0-5 [facility] Comment on above: Performed By: #### L [id number], L500.4050, L100.0100, L506.1001 #### [facility] [address] [place], [address] Erythrocyte distribution width (RBC) [Ratio] 13.4 % Normal 11.6-14.6 [facility] Comment on above: Performed By: #### L [id number], L500.4050, L100.0100, L506.1001 #### [facility] [address] [place], [address] Hematocrit (Bld) [Volume fraction] 44.9 % Normal 40-54 [facility] Comment on above: Performed By: #### L [id number], [id number], L100.0100, L506.1001 #### [facility] [address] [place], [address] Hemoglobin (Bld) [Mass/Vol] 15.1 g/dL Normal 13.0-16.5 [facility] Comment on above: Performed By: #### L [id number], L500.4050, L100.0100, L506.1001 #### [facility] [address] [place], [address] IG% 0.400 Normal 0.0-0.9 [facility] Comment on above: Result Comment: IG% - Immature Granulocytes (promyelocytes, myelocytes and metamyelocytes) > 1% indicates that a LEFT SHIFT is Present. Performed By: #### L 501.9520, L500.4050, L100.0100, L506.1001 #### [facility] [address] [place], [address] Lymphocytes/100 WBC (Bld) 25.7 % Normal 19-41 [facility] Comment on above: Performed By: #### L [id number], [id number], L100.0100, L506.1001 #### [facility] [address] [place], [address] MCH (RBC) [Entitic mass] 32.3 pg High 27.0-32.0 [facility] Comment on above: Performed By: #### L [id number], [id number], L100.0100, L506.1001 #### [facility] [address] [place], [address] MCHC (RBC) [Mass/Vol] 33.6 g/dL Normal 32-[address] [facility] Comment on above: Performed By: #### L [id number], [id number], L100.0100, L506.1001 #### [facility] [address] [place], [address] MCV (RBC) [Entitic vol] 96.1 fL High 80-94 [facility] Comment on above: Performed By: #### L [id number], [id number], L100.0100, L506.1001 #### [facility] [address] [place], [address] Monocytes/100 WBC (Bld) 12.6 % High 0-10 [facility] Comment on above: Performed By: #### L [id number], [id number], L100.0100, L506.1001 #### [facility] [address] [place], [address] Neutrophils/100 WBC (Bld) 58.5 % Normal 47-70 [facility] Comment on above: Performed By: #### L [id number], [id number], L100.0100, L506.1001 #### [facility] [address] [place], [address] Nucleated RBC (Bld) [#/Vol] 0 10*3/uL Normal 0-5 [facility] Comment on above: Performed By: #### L [id number], [id number], L100.0100, L506.1001 #### [facility] [address] [place], [address] Platelet mean volume (Bld) [Entitic vol] 10.4 fL Normal 6.2-12.0 [facility] Comment on above: Performed By: #### L [id number], L500.4050, L100.0100, L506.1001 #### [facility] [address] [place], [address] Platelets (Bld) [#/Vol] 196 10*3/uL Normal 150-450 [facility] Comment on above: Performed By: #### L [id number], L500.4050, L100.0100, L506.1001 #### [facility] [address] [place], [address] RBC (Bld) [#/Vol] 4.67 10*6/uL Normal 4.6-6.2 [facility] Comment on above: Performed By: #### L [id number], [id number], L100.0100, L506.1001 #### [facility] [address] [place], [address] RDW SD 47.7 fl High 35.1-43.9 [facility] Comment on above: Performed By: #### L [id number], [id number], L100.0100, L506.1001 #### [facility] [address] [place], [address] WBC (Bld) [#/Vol] 7.3 10*3/uL Normal 4.4-11.0 [facility] Comment on above: Performed By: #### L [id number], L500.4050, L100.0100, L506.1001 #### [facility] [address] [place], [address] Comprehensive Metabolic [facility] 09-12-2024 Albumin [Mass/Vol] 4.1 g/dL Normal 3.4-4.8 [facility] Comment on above: Performed By: #### L [id number], L500.4050, L100.0100, L506.1001 #### [facility] [address] [place], [address] Albumin/Globulin [Mass ratio] 1.6 {ratio} Normal 0.9-2.4 [facility] Comment on above: Performed By: #### L [id number], [id number], L100.0100, L506.1001 #### [facility] [address] [place], [address] ALK PHOS 71 U/L Normal 40-129 [facility] Comment on above: Performed By: #### L [id number], L500.4050, L100.0100, L506.1001 #### [facility] [address] [place], [address] ALT [Catalytic activity/Vol] 28 U/L Normal <=46 [facility] Comment on above: Performed By: #### L 501.9520, [id number], L100.0100, L506.1001 #### [facility] [address] [place], [address] AST [Catalytic activity/Vol] 27 U/L Normal <=37 [facility] Comment on above: Performed By: #### L 501.9520, [id number], L100.0100, L506.1001 #### [facility] [address] [place], [address] Bilirubin [Mass/Vol] 0.65 mg/dL Normal 0.00-1.30 [facility] Comment on above: Performed By: #### L 501.9520, L500.4050, L100.0100, L506.1001 #### [facility] [address] [place], [address] BUN/CRE 14.8 RATIO Normal 10-20 [facility] Comment on above: Performed By: #### L 501.9520, [id number], L100.0100, L506.1001 #### [facility] [address] [place], [address] Calcium [Mass/Vol] 9.0 mg/dL Normal 7.6-11.0 [facility] Comment on above: Performed By: #### L 501.9520, [id number], L100.0100, L506.1001 #### [facility] [address] [place], [address] Chloride [Moles/Vol] 107 mmol/L Normal 98-108 [facility] Comment on above: Performed By: #### L 501.9520, [id number], L100.0100, L506.1001 #### [facility] [address] [place], [address] CO2 [Moles/Vol] 21.1 mmol/L Normal 21.0-32.0 [facility] Comment on above: Performed By: #### L [id number], L500.4050, L100.0100, L506.1001 #### [facility] [address] [place], [address] Creatinine [Mass/Vol] 1.07 mg/dL Normal 0.70-1.[address] [facility] Comment on above: Performed By: #### L 501.9520, L500.4050, L100.0100, L506.1001 #### [facility] [address] [place], [address] GAP 11 Normal 5-15 [facility] Comment on above: Performed By: #### L [id number], L500.4050, L100.0100, L506.1001 #### [facility] [address] [place], [address] GFR/1.73 sq M.predicted among non-blacks MDRD (S/P/Bld) [Vol rate/Area] 71 mL/min/{1.73_m2} Normal >60 [facility] Comment on above: Result Comment: mL/m in/1.73m2 CKD-EPI Creatinine Equation (2020) Performed By: #### L [id number], L500.4050, L100.0100, L506.1001 #### [facility] [address] [place], [address] Globulin (S) [Mass/Vol] 2.6 g/dL Normal 2.2-4.2 [facility] [facility] Comment on above: Performed By: #### L 501.9520, L500.4050, L100.0100, L506.1001 #### [facility] [address] [place], [address] Glucose [Mass/Vol] 101 mg/dL High 70-99 [facility] Comment on above: Performed By: #### L 501.9520, L500.4050, L100.0100, L506.1001 #### [facility] [address] [place], [address] Potassium [Moles/Vol] 4.0 mmol/L Normal 3.3-5.[address] [facility] Comment on above: Performed By: #### L 501.9520, L500.4050, L100.0100, L506.1001 #### [facility] [address] [place], [address] Sodium [Moles/Vol] 139 mmol/L Normal 133-145 [facility] Comment on above: Performed By: #### L 501.9520, L500.4050, L100.0100, L506.1001 #### [facility] [address] [place], [address] T PROT 6.7 g/dL Normal 5.9-8.4 [facility] Comment on above: Performed By: #### L 501.9520, L500.4050, L100.0100, L506.1001 #### [facility] [address] [place], [address] Urea nitrogen [Mass/Vol] 16 mg/dL Normal 4-19 [facility] Comment on above: Performed By: #### L 501.9520, L500.4050, L100.0100, L506.1001 #### [facility] [address] [place], [address] Thyroid Stim Hormone (TSH)on 09-12-2024 TSH 1.050 uIU/mL Normal 0.300-4.200 [facility] Comment on above: Performed By: #### L 501.9520, L500.4050, L100.0100, L506.1001 #### [facility] [address] [place], [address] Vitamin D,25 Hydroxyon 09-12 Vitamin D 25-OH 23.7 ng/mL Low 30-100 [facility] Comment on above: Result Comment: Elsie min D Status Deficiency: <20 ng/mL (50nmol/L) Insufficiency: 20-30 ng/mL (50-75 nmol/L) Sufficiency: 30-100 ng/mL (75-250 nmol/L) Toxicity: >100 ng/mL (>250 nmol/L) Performed By: #### L 501.9520, L500.4050, L100.0100, L506.1001 #### [facility] [address] [place], [address] Emergency Department Summary on 07-29-2024 Emergency Department Summary [facility] Medical Records Department [address] [place], [place] [address] [address] Emergency Department Summary 07/29/24 MR#: [id number] Acct: [id number] Name: NABOR HECK Rep #: [id number] : 1945 79 From: Rei Goff PCP: Dr. Ramiro Tafoya MD Status:DEP ER Location: ED HPI History of Present Illness Chief Complaint: Fall Informant: patient Narrative Narrative: Ambidextrous male mechanical fall few hours ago in [place]. Tripped when he hit his foot on a pew. Injury directed to the shoulder. No head injuries. No loss of conscious. No headache or neck pain. Pain to shoulder worse with movement. He is on Eliquis for history of DVT. Denies any lower extremity pain. [facility] Medical History Hx of cataract DVT (deep venous thrombosis) Home Medications ???Medication ???Instructions ???Recorded ???Last Taken ???Type verapamil 240 mg 24 hr 240 mg PO BID 09/10/14 06/24/16 Hi story capsule,extended release apixaban 5 mg tablet (Eliquis) 10 mg PO DAILY 12/27/22 Unknown Hi story clindamycin HCl 300 mg capsule 300 mg PO Q6H #40 CAPSULES 3 Unknown Rx (Cleocin HCl) levofloxacin 500 mg tablet 500 mg PO DAILY 12/27/22 Unknown H istory valsartan 160 mg tablet 160 mg PO DAILY 12/27/22 Unknown H istory Allergy/AdvReac Type Severity Reaction Status Date / Time banana Allergy Unknown Verified 07/29/24 13:42 cashew nut (cashews) Allergy PT UNSURE Verified 07/29/24 13:46 OF REACTION chocolate flavor Allergy Unknown Verified 07/29/24 13:42 Environmental Allergies: Allergy NEEDS Verified 07/29/24 13:42 Uncoded FOLLOW-UP epoxy resin Allergy PT UNSURE Verified 07/29/24 13:46 OF REACTION mold Allergy Unknown Verified 07/29/24 13:42 ragweed pollen Allergy Unknown Verified 07/29/24 13:42 balsam enrique AdvReac Unknown Verified 07/29/24 13:42 diazolidinyl urea AdvReac Unknown Verified 07/29/24 13:42 Surgical History Hx of cholecystectomy Social History Smoking Status: Former smoker ROS ROS ED Constitutional Constitutional ED: Denies chills, fever(s) or sweats ENT ENT ED: Denies sore throat Cardiovascular Cardiovascular: Denies chest pain, leg edema, palpitations or racing heartbeat Respiratory/Chest Respiratory/Chest: Denies cough, dyspnea or dyspnea on exertion Gastrointestinal Gastrointestinal: Denies abdominal pain, diarrhea, nausea or vomiting Genitourinary Genitourinary ED: Denies dysuria, hematuria or urinary frequency Musculoskeletal Musculoskeletal: Reports extremity pain; Denies back pain or neck pain Integumentary Denies rash or wounds Neurologic Neurologic: Denies headache(s), paresthesias or weakness EXAM Physical Exam Const Vital Signs: 07/29/24 13:42 Temperature 97.4 F L Temperature Source Temporal Pulse Rate 65 Respiratory Rate 18 Blood Pressure 152/79 H Blood Pressure Mean 103 Pulse Ox 97 Oxygen Delivery Method Room Air Positive well nourished and well developed Constitutional Narrative: GCS 15. General Appearance ED: well developed and NAD HEENT Reports moist mucous membranes normocephalic and atraumatic Eyes General Eye ED: Yes normal appearance of both eyes Neck full ROM Neck Narrative: No midline tenderness no step-offs. Chest Wall inspection of chest normal and palpation of chest normal Chest: Negative for tenderness Resp normal respiratory effort and normal air movement Effort and Inspection: symmetric chest movement; Negative for respiratory distress Cardio regular rate, regular rhythm and no murmurs Peripheral Pulses: pulses 2+ throughout GI normal to inspection, nondistended, normoactive bowel sounds and non-tender Palpation: Negative for guarding or rebound tenderness present Extremity Extremity Narrative: Lower extremities negative logroll was able to ambulate without pain. Right upper extremity: Full range of motion on any tenderness. Left upper extremity: No clavicle tenderness no acromioclavicular tenderness. Mild tenderness proximal shoulder pain with flexion of the shoulder and abduction of the shoulder there is no deformities. Pain at bicipital groove with positive speeds test. Pain with internal rotation shoulder against resistance. No pain with external rotation without resistance. Pain with abduction of the shoulder. No mid humerus tenderness. No elbow tenderness. Soft compartments. Neuro vas intact distally. General Extremety ED: Yes tenderness; Negative for edema General Extremity: Negative for edema Neuro oriented x3 and no sensory deficits noted Sensorium / Orientation: awake and alert Skin no rashes or lesions noted and no wounds MD (more content not included)... Normal [facility] Shoulder min 2 Viewson 07-29 Shoulder min 2 Views [facility] Imaging Services [address] [place], [place] [id number] Shoulder min 2 Views MR#: [id number] Acct: [id number] Name: NABOR HECK Rep #: [id number] : 1945 M 79 From: Rubén Galloway MD PCP: Dr. Ramiro Tafoya MD Status: REG ER Study: Shoulder min 2 Views Date of Exam: 07/29/24 Exam# [id number] Ordering Dr: Rei Galloway DO EXAM: XR Left Shoulder Complete, 2 or More Views CLINICAL INDICATION: TECHNIQUE: Two or more views of the left shoulder. COMPARISON: No relevant prior studies available. FINDINGS: BONES/JOINTS: Mild degenerative change of the acromioclavicular and glenohumeral joints. No acute fracture. No dislocation. SOFT TISSUES: Soft tissue swelling. RAD/Shoulder min 2 Views IMPRESSION: Degenerative changes as above. Reading [facility] CC: Dr. Ramiro Tafoya MD; Dr. 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 [facility] .Auto Diffon 06-21-2024 Basophil, Absolute 0.0 10 3/mcL Normal 0.0-0.2 [facility] Comment on above: Performed By: #### G FR, ANEU, CMP, ADIFF, LD, CBC #### [address] [address] Basophils/100 WBC (Bld) 0.5 % Normal 0.0-2.5 [facility] Comment on above: Performed By: #### G FR, ANEU, CMP, ADIFF, LD, CBC #### [address] [address] Eosinophil, Absolute 0.3 10 3/mcL Normal 0.0-0.7 [facility] [place] [facility] Comment on above: Performed By: #### G FR, ANEU, CMP, ADIFF, LD, CBC #### [address] [address] Eosinophils/100 WBC (Bld) 3.6 % Normal 0.0-7.0 [facility] Comment on above: Performed By: #### G FR, ANEU, CMP, ADIFF, LD, CBC #### [address] [address] Lymphocyte, Absolute 2.1 10 3/mcL Normal 0.9-4.3 [facility] [place] [facility] Comment on above: Performed By: #### G FR, ANEU, CMP, ADIFF, LD, CBC #### [address] [address] Lymphocytes/100 WBC (Bld) 27.5 % Normal 20.0-40.0 [facility] Comment on above: Performed By: #### G FR, ANEU, CMP, ADIFF, LD, CBC #### [address] [address] Monocyte, Absolute 0.9 10 3/mcL Normal 0.1-1.4 [facility] Comment on above: Performed By: #### G FR, ANEU, CMP, ADIFF, LD, CBC #### [address] [address] Monocytes/100 WBC (Bld) 11.8 % Normal 2.0-13.0 [facility] Comment on above: Performed By: #### G FR, ANEU, CMP, ADIFF, LD, CBC #### [address] [address] Neutrophils/100 WBC (Bld) 56.6 % Normal 50.0-75.0 [facility] Comment on above: Performed By: #### G FR, ANEU, CMP, ADIFF, LD, CBC #### [address] [address] .GFRon 06-21-2024 GFR Non- 71 ml/min/1.73sqm Normal [facility] Comment on above: Result Comment: GFR Population mean for , Non- Americans Ages 20-29 = 116 mL/min/1.73 sq.m. Ages 30-39 = 107 mL/min/1.73 sq.m. Ages 40-49 = 99 mL/min/1.73 sq.m. Ages 50-59 = 93 mL/min/1.73 sq.m. Ages 60-69 = 85 mL/min/1.73 sq.m. Ages 70+ = 75 mL/min/1.73 sq.m. Chronic Kidney Disease: Less than 60 mL/min/1.73 square meters End Stage Renal Disease: Less than 15 mL/min/1.73 square meters Performed By: #### G FR, ANEU, CMP, ADIFF, LD, CBC #### [address] [address] GFR 87 ml/min/1.73sqm Normal [facility] Comment on above: Result Comment: GFR Population mean for , Non- Americans Ages 20-29 = 116 mL/min/1.73 sq.m. Ages 30-39 = 107 mL/min/1.73 sq.m. Ages 40-49 = 99 mL/min/1.73 sq.m. Ages 50-59 = 93 mL/min/1.73 sq.m. Ages 60-69 = 85 mL/min/1.73 sq.m. Ages 70+ = 75 mL/min/1.73 sq.m. Chronic Kidney Disease: Less than 60 mL/min/1.73 square meters End Stage Renal Disease: Less than 15 mL/min/1.73 square meters Performed By: #### G FR, ANEU, CMP, ADIFF, LD, CBC #### [address] [address] .NEUABSon 06-21-2024 Neutrophil, Absolute 4.3 10 3/mcL Normal 2.3-8.1 [facility] [place] [facility] Comment on above: Performed By: #### G FR, ANEU, CMP, ADIFF, LD, CBC #### [address] [address] CBCon 06-21-2024 Erythrocyte distribution width (RBC) [Ratio] 13.7 % Normal 11.5-15.5 [facility] Comment on above: Performed By: #### G FR, ANEU, CMP, ADIFF, LD, CBC #### [place] [address] Hematocrit (Bld) [Volume fraction] 46.6 % Normal 40.0-52.0 [facility] Comment on above: Performed By: #### G FR, ANEU, CMP, ADIFF, LD, CBC #### [place] [id number] Hgb 15.6 G/dL Normal 13.0-17.5 [facility] Comment on above: Performed By: #### G FR, ANEU, CMP, ADIFF, LD, CBC #### [address] [address] MCH (RBC) [Entitic mass] 32.3 pg Normal 27.0-33.0 [facility] Comment on above: Performed By: #### G FR, ANEU, CMP, ADIFF, LD, CBC #### [address] [address] MCHC 33.6 G/dL Normal 32.0-36.0 [facility] Comment on above: Performed By: #### G FR, ANEU, CMP, ADIFF, LD, CBC #### [address] [address] MCV (RBC) [Entitic vol] 96.4 fL Normal 81.0-100.0 [facility] Comment on above: Performed By: #### G FR, ANEU, CMP, ADIFF, LD, CBC #### [address] [address] Platelet 184 10 3/mcL Normal 150-450 [facility] Comment on above: Performed By: #### G FR, ANEU, CMP, ADIFF, LD, CBC #### [address] [address] Platelet mean volume (Bld) [Entitic vol] 8.5 fL Normal 6.4-10.5 [facility] Comment on above: Performed By: #### G FR, ANEU, CMP, ADIFF, LD, CBC #### [address] [address] RBC 4.83 10 6/mcL Normal 4.50-6.00 [facility] Comment on above: Performed By: #### G FR, ANEU, CMP, ADIFF, LD, CBC #### [address] [address] WBC 7.7 10 3/mcL Normal 4.5-10.8 [facility] Comment on above: Performed By: #### G FR, ANEU, CMP, ADIFF, LD, CBC #### [address] [address] CMPon 06-21-2024 Albumin Level 3.8 G/dL Normal 3.4-4.8 [facility] Comment on above: Performed By: #### G FR, ANEU, CMP, ADIFF, LD, CBC #### [address] [address] Albumin/Globulin [Mass ratio] 1.3 {ratio} Normal 1.1-2.5 [facility] Comment on above: Performed By: #### G FR, ANEU, CMP, ADIFF, LD, CBC #### [address] [address] ALP [Catalytic activity/Vol] 77 U/L Normal 40-135 [facility] Comment on above: Performed By: #### G FR, ANEU, CMP, ADIFF, LD, CBC #### [address] [address] ALT [Catalytic activity/Vol] 25 U/L Normal 16-63 [facility] Comment on above: Performed By: #### G FR, ANEU, CMP, ADIFF, LD, CBC #### [address] [address] AST [Catalytic activity/Vol] 18 U/L Normal 10-40 [facility] Comment on above: Performed By: #### G FR, ANEU, CMP, ADIFF, LD, CBC #### [address] [address] Bili Total 0.6 mg/dL Normal 0.2-1.0 [facility] Comment on above: Result Comment: Use of this assay is not recommended for patients undergoing treatment with eltrombopag due to the potential for falsely elevated results. Performed By: #### G FR, ANEU, CMP, ADIFF, LD, CBC #### [address] [address] BUN/Creatinine Ratio 16 ratio Normal 7-27 [facility] Comment on above: Performed By: #### G FR, ANEU, CMP, ADIFF, LD, CBC #### [address] [address] Calcium [Mass/Vol] 9.1 mg/dL Normal 8.4-10.2 [facility] Comment on above: Performed By: #### G FR, ANEU, CMP, ADIFF, LD, CBC #### [address] [address] Chloride [Moles/Vol] 103 mmol/L Normal 98-107 [facility] Comment on above: Performed By: #### G FR, ANEU, CMP, ADIFF, LD, CBC #### [address] [address] CO2 [Moles/Vol] 23 mmol/L Normal 23-31 [facility] Comment on above: Performed By: #### G FR, ANEU, CMP, ADIFF, LD, CBC #### [address] [address] Creatinine [Mass/Vol] 1.01 mg/dL Normal 0.70-1.30 [facility] Comment on above: Result Comment: Test ing performed on Siemens Dimension EXL analyzer using a modified kinetic Harvey technique. Performed By: #### G FR, ANEU, CMP, ADIFF, LD, CBC #### [address] [address] Electrolyte Balance 10.0 mEq/L Normal 4.0-15.0 [facility] Comment on above: Performed By: #### G FR, ANEU, CMP, ADIFF, LD, CBC #### [address] [address] Globulin 3.0 G/dL Normal [facility] Comment on above: Performed By: #### G FR, ANEU, CMP, ADIFF, LD, CBC #### [address] [address] Glucose [Mass/Vol] 92 mg/dL Normal 83-110 [facility] Comment on above: Performed By: #### G FR, ANEU, CMP, ADIFF, LD, CBC #### [address] [address] Potassium [Moles/Vol] 4.1 mmol/L Normal 3.5-5.1 [facility] Comment on above: Performed By: #### G FR, ANEU, CMP, ADIFF, LD, CBC #### [address] [address] Sodium [Moles/Vol] 136 mmol/L Normal 136-145 [facility] Comment on above: Performed By: #### G FR, ANEU, CMP, ADIFF, LD, CBC #### [address] [address] Total Protein 6.8 G/dL Normal 6.4-8.2 [facility] Comment on above: Performed By: #### G FR, ANEU, CMP, ADIFF, LD, CBC #### [address] [address] Urea nitrogen [Mass/Vol] 16 mg/dL Normal 7-18 [facility] Comment on above: Performed By: #### G FR, ANEU, CMP, ADIFF, LD, CBC #### [address] [address] LABORATORYOrdered By: SYSTEM SYSTEM on 06-21-2024 Albumin BCP dye [Mass/Vol] 3.8 G/dL Normal 3.4 - 4.8 G/dL AO ADM SS Albumin/Globulin [Mass ratio] 1.3 {ratio} Normal 1.1 - 2.5 ratio AO ADM SS ALP [Catalytic activity/Vol] 77 U/L Normal 40 - 135 U/L AO ADM SS ALT With P-5'-P [Catalytic activity/Vol] 25 U/L Normal 16 - 63 U/L AO ADM SS AST With P-5'-P [Catalytic activity/Vol] 18 U/L Normal 10 - 40 U/L AO ADM SS Basophils (Bld) [#/Vol] 0.0 103/mcL Normal 0.0 - 0.2 10^3/mcL AO Workflow SS Basophils/100 WBC (Bld) 0.5 % Normal 0.0 - 2.5 % AO Workflow SS Bilirubin [Mass/Vol] 0.6 mg/dL Normal 0.2 - 1 .0 mg/dL AO ADM SS Comment on above: Interpretive Data: U se of this assay is not recommended for patients undergoing treatment with eltrombopag due to the potential for falsely elevated results. Calcium [Mass/Vol] 9.1 mg/dL Normal 8.4 - 10. 2 mg/dL AO ADM SS Chloride [Moles/Vol] 103 mmol/L Normal 98 - 10 7 mmol/L AO ADM SS CO2 [Moles/Vol] 23 mmol/L Normal 23 - 31 mmol/L AO ADM SS Creatinine [Mass/Vol] 1.01 mg/dL Normal 0.70 - 1.30 mg/dL AO ADM SS Comment on above: Interpretive Data: T esting performed on Siemens Dimension EXL analyzer using a modified kinetic Harvey technique. Electrolyte Balance 10.0 mEq/L Normal 4.0 - 15 .0 mEq/L AO ADM SS Eosinophil, Absolute 0.3 103/mcL Normal 0.0 - 0 .7 10^3/mcL AO Workflow SS Eosinophils/100 WBC (Bld) 3.6 % Normal 0.0 - 7.0 % AO Workflow SS Erythrocyte distribution width (RBC) [Ratio] 13.7 % Normal 11.5 - 15.5 % AO Workflow SS GFR/1.73 sq M.predicted among blacks MDRD (S/P/Bld) [Vol rate/Area] 87 ml/min/1.73sqm Invalid Interpretation Code AO Chemistry S Comment on above: Interpretive Data: GFR Population mean for , Non- Americans Ages 20-29 = 116 mL/min/1.73 sq.m. Ages 30-39 = 107 mL/min/1.73 sq.m. Ages 40-49 = 99 mL/min/1.73 sq.m. Ages 50-59 = 93 mL/min/1.73 sq.m. Ages 60-69 = 85 mL/min/1.73 sq.m. Ages 70+ = 75 mL/min/1.73 sq.m. Chronic Kidney Disease: Less than 60 mL/min/1.73 square meters End Stage Renal Disease: Less than 15 mL/min/1.73 square meters GFR/1.73 sq M.predicted among non-blacks MDRD (S/P/Bld) [Vol rate/Area] 71 ml/min/1.73sqm Invalid Interpretation Code AO Chemistry S Comment on above: Interpretive Data: GFR Population mean for , Non- Americans Ages 20-29 = 116 mL/min/1.73 sq.m. Ages 30-39 = 107 mL/min/1.73 sq.m. Ages 40-49 = 99 mL/min/1.73 sq.m. Ages 50-59 = 93 mL/min/1.73 sq.m. Ages 60-69 = 85 mL/min/1.73 sq.m. Ages 70+ = 75 mL/min/1.73 sq.m. Chronic Kidney Disease: Less than 60 mL/min/1.73 square meters End Stage Renal Disease: Less than 15 mL/min/1.73 square meters Globulin 3.0 G/dL Invalid Interpretation Code AO ADM SS Glucose [Mass/Vol] 92 mg/dL Normal 83 - 110 mg/dL AO ADM SS Hematocrit (Bld) [Volume fraction] 46.6 % Normal 40.0 - 52.0 % AO Workflow SS Hemoglobin (Bld) [Mass/Vol] 15.6 G/dL Normal 13.0 - 17.5 G/dL AO Workflow SS LDH [Catalytic activity/Vol] 164 U/L Normal 85 - 227 U/L AO ADM SS Lymphocytes (Bld) [#/Vol] 2.1 103/mcL Normal 0.9 - 4.3 10^3/mcL AO Workflow SS Lymphocytes/100 WBC (Bld) 27.5 % Normal 20.0 - 40.0 % AO Workflow SS MCH (RBC) [Entitic mass] 32.3 pg Normal 27.0 - 33.0 pg AO Workflow SS MCHC 33.6 G/dL Normal 32.0 - 36.0 G/dL AO Workflow SS MCV (RBC) [Entitic vol] 96.4 fL Normal 81.0 - 100.0 fL AO Workflow SS Monocytes (Bld) [#/Vol] 0.9 103/mcL Normal 0.1 - 1.4 10^3/mcL AO Workflow SS Monocytes/100 WBC (Bld) 11.8 % Normal 2.0 - 13.0 % AO Workflow SS Neutrophils (Bld) [#/Vol] 4.3 103/mcL Normal 2.3 - 8.1 10^3/mcL AO Workflow SS Neutrophils/100 WBC (Bld) 56.6 % Normal 50.0 - 75.0 % AO Workflow SS Platelet mean volume (Bld) [Entitic vol] 8.5 fL Normal 6.4 - 10.5 fL AO Workflow SS Platelets (Bld) [#/Vol] 184 103/mcL Normal 150 - 450 10^3/mcL AO Workflow SS Potassium [Moles/Vol] 4.1 mmol/L Normal 3.5 - 5.1 mmol/L AO ADM SS Protein [Mass/Vol] 6.8 G/dL Normal 6.4 - 8.2 G/dL AO ADM SS RBC (Bld) [#/Vol] 4.83 106/mcL Normal 4.50 - 6.0 0 10^6/mcL AO Workflow SS Sodium [Moles/Vol] 136 mmol/L Normal 136 - 145 mmol/L AO ADM SS Urea nitrogen [Mass/Vol] 16 mg/dL Normal 7 - 18 mg/dL AO ADM SS Urea nitrogen/Creatinine [Mass ratio] 16 ratio Normal 7 - 27 ratio AO ADM SS WBC (Bld) [#/Vol] 7.7 103/mcL Normal 4.5 - 10.8 10^3/mcL AO Workflow SS LDHon 06-21-2024 LDH 164 U/L Normal 85-227 [facility] Comment on above: Performed By: #### G FR, ANEU, CMP, ADIFF, LD, CBC #### [facility] [address] [place], [place] [address] CBC W/Diff, Automatedon 02-20 Absolute Lymph 1.68 X10 3/uL Normal 0.83-4.51 [facility] Comment on above: Performed By: #### L 500.4050, L100.0100, L501.9520, L506.1000 #### [facility] [address] [place], [address] Absolute Neut 4.7 X10 3/uL Normal 2.0-7.7 [facility] Comment on above: Performed By: #### L 500.4050, L100.0100, L501.9520, L506.1000 #### [facility] [address] [place], [address] Basophils/100 WBC (Bld) 0.4 % Normal 0-1 [facility] Comment on above: Performed By: #### L 500.4050, L100.0100, L501.9520, L506.1000 #### [facility] [address] [place], [address] Eosinophils/100 WBC (Bld) 2.9 % Normal 0-5 [facility] Comment on above: Performed By: #### L 500.4050, L100.0100, L501.9520, L506.1000 #### [facility] [address] [place], [address] Erythrocyte distribution width (RBC) [Ratio] 13.0 % Normal 11.6-14.6 [facility] Comment on above: Performed By: #### L 500.4050, L100.0100, L501.9520, L506.1000 #### [facility] [address] [place], [address] Hematocrit (Bld) [Volume fraction] 47.9 % Normal 40-54 [facility] Comment on above: Performed By: #### L 500.4050, L100.0100, L501.9520, L506.1000 #### [facility] [address] [place], [address] Hemoglobin (Bld) [Mass/Vol] 15.7 g/dL Normal 13.0-16.5 [facility] Comment on above: Performed By: #### L 500.4050, L100.0100, L501.9520, L506.1000 #### [facility] [address] [place], [address] IG% 0.400 Normal 0.0-0.9 [facility] Comment on above: Result Comment: IG% - Immature Granulocytes (promyelocytes, myelocytes and metamyelocytes) > 1% indicates that a LEFT SHIFT is Present. Performed By: #### L 500.4050, L100.0100, L501.9520, L506.1000 #### [facility] [address] [place], [address] Lymphocytes/100 WBC (Bld) 22.3 % Normal 19-41 [facility] Comment on above: Performed By: #### L 500.4050, L100.0100, L501.9520, L506.1000 #### [facility] [address] [place], [address] MCH (RBC) [Entitic mass] 30.8 pg Normal 27.0-32.0 [facility] Comment on above: Performed By: #### L 500.4050, L100.0100, L501.9520, L506.1000 #### [facility] [address] [place], [address] MCHC (RBC) [Mass/Vol] 32.8 g/dL Normal 32-[address] [facility] Comment on above: Performed By: #### L 500.4050, L100.0100, L501.9520, L506.1000 #### [facility] [address] [place], [address] MCV (RBC) [Entitic vol] 94.1 fL High 80-94 [facility] Comment on above: Performed By: #### L 500.4050, L100.0100, L501.9520, L506.1000 #### [facility] [address] [place], [address] Monocytes/100 WBC (Bld) 12.0 % High 0-10 [facility] Comment on above: Performed By: #### L 500.4050, L100.0100, L501.9520, L506.1000 #### [facility] [address] [place], [address] Neutrophils/100 WBC (Bld) 62.0 % Normal 47-70 [facility] Comment on above: Performed By: #### L 500.4050, L100.0100, L501.9520, L506.1000 #### [facility] [address] [place], [address] Nucleated RBC (Bld) [#/Vol] 0 10*3/uL Normal 0-5 [facility] Comment on above: Performed By: #### L 500.4050, L100.0100, L501.9520, L506.1000 #### [facility] [address] [place], [address] Platelet mean volume (Bld) [Entitic vol] 10.1 fL Normal 6.2-12.0 [facility] Comment on above: Performed By: #### L 500.4050, L100.0100, L501.9520, L506.1000 #### [facility] [address] [place], [address] Platelets (Bld) [#/Vol] 192 10*3/uL Normal 150-450 [facility] Comment on above: Performed By: #### L 500.4050, L100.0100, L501.9520, L506.1000 #### [facility] [address] [place], [address] RBC (Bld) [#/Vol] 5.09 10*6/uL Normal 4.6-6.2 [facility] Comment on above: Performed By: #### L 500.4050, L100.0100, L501.9520, L506.1000 #### [facility] [address] [place], [address] RDW SD 45.0 fl High 35.1-43.9 [facility] Comment on above: Performed By: #### L 500.4050, L100.0100, L501.9520, L506.1000 #### [facility] [address] [place], [address] WBC (Bld) [#/Vol] 7.5 10*3/uL Normal 4.4-11.0 [facility] Comment on above: Performed By: #### L 500.4050, L100.0100, L501.9520, L506.1000 #### [facility] [address] [place], [address] [facility] Albumin [Mass/Vol] 3.6 g/dL Normal 3.2-5.0 [facility] Comment on above: Performed By: #### L 500.4050, L100.0100, L501.9520, L506.1000 #### [facility] [address] [place], [address] Albumin/Globulin [Mass ratio] 1.0 {ratio} Normal 0.9-2.4 [facility] Comment on above: Performed By: #### L 500.4050, L100.0100, L501.9520, L506.1000 #### [facility] [address] [place], [address] ALK P 73 U/L Normal 45-117 [facility] Comment on above: Performed By: #### L 500.4050, L100.0100, L501.9520, L506.1000 #### [facility] [address] [place], [address] ALT [Catalytic activity/Vol] 25 U/L Normal 16-61 [facility] Comment on above: Performed By: #### L 500.4050, L100.0100, L501.9520, L506.1000 #### [facility] [address] [place], [address] AST [Catalytic activity/Vol] 15 U/L Normal 15-37 [facility] Comment on above: Performed By: #### L 500.4050, L100.0100, L501.9520, L506.1000 #### [facility] [address] [place], [address] Bilirubin [Mass/Vol] 0.70 mg/dL Normal 0.20-1.00 [facility] Comment on above: Result Comment: For patients on eltrombopag therapy, use of Dimension [place] TBIL is not recommended. Performed By: #### L 500.4050, L100.0100, L501.9520, L506.1000 #### [facility] [address] [place], [address] BUN/CRE 21.5 RATIO High 10-20 [facility] Comment on above: Performed By: #### L 500.4050, L100.0100, [id number], L506.1000 #### [facility] [address] [place], [address] CA,Total 9.0 mg/dL Normal 8.5-10.1 [facility] Comment on above: Performed By: #### L 500.4050, L100.0100, L501.9520, L506.1000 #### [facility] [address] [place], [address] Chloride [Moles/Vol] 110 mmol/L High 98-107 [facility] Comment on above: Performed By: #### L 500.4050, L100.0100, L501.9520, L506.1000 #### [facility] [address] [place], [address] CO2 [Moles/Vol] 23.0 mmol/L Normal 21.0-32.0 [facility] Comment on above: Performed By: #### L 500.4050, L100.0100, L501.9520, L506.1000 #### [facility] [address] [place], [address] Creatinine [Mass/Vol] 0.98 mg/dL Normal 0.70-1.[address] [facility] Comment on above: Result Comment: The validity of the calculated GFR GFRAA in patients over 70 years has not been determined. Clinical correlation is essential. Performed By: #### L 500.4050, L100.0100, L501.9520, L506.1000 #### [facility] [address] [place], [address] EST GFR - AA 96 mL/min Normal >60 [facility] Comment on above: Result Comment: Afri can [place] GFR Calc Performed By: #### L 500.4050, L100.0100, L501.9520, L506.1000 #### [facility] [address] [place], [address] GAP 4 Low 5-15 [facility] Comment on above: Performed By: #### L 500.4050, L100.0100, L501.9520, L506.1000 #### [facility] [address] [place], [address] GFR/1.73 sq M.predicted among non-blacks MDRD (S/P/Bld) [Vol rate/Area] 79 mL/min/{1.73_m2} Normal >60 [facility] Comment on above: Result Comment: Non- GFR Calc Performed By: #### L 500.4050, L100.0100, L501.9520, L506.1000 #### [facility] [address] [place], [address] Globulin (S) [Mass/Vol] 3.5 g/dL Normal 2.2-4.2 [facility] Comment on above: Performed By: #### L 500.4050, L100.0100, L501.9520, L506.1000 #### [facility] [address] [place], [address] Glucose [Mass/Vol] 89 mg/dL Normal 74-106 [facility] Comment on above: Performed By: #### L 500.4050, L100.0100, L501.9520, L506.1000 #### [facility] [address] [place], [address] Potassium [Moles/Vol] 4.1 mmol/L Normal 3.5-5.[address] [facility] Comment on above: Performed By: #### L 500.4050, L100.0100, [id number], L506.1000 #### [facility] [address] [place], [address] Sodium [Moles/Vol] 136 mmol/L Normal 136-145 [facility] Comment on above: Performed By: #### L 500.4050, L100.0100, L501.9520, L506.1000 #### [facility] [address] [place], [address] T PROT 7.1 g/dL Normal 6.4-8.2 [facility] Comment on above: Performed By: #### L 500.4050, L100.0100, L501.9520, L506.1000 #### [facility] [address] [place], [address] Urea nitrogen [Mass/Vol] 21 mg/dL High 7-18 [facility] Comment on above: Performed By: #### L 500.4050, L100.0100, L501.9520, L506.1000 #### [facility] [address] [place], [address] Thyroid Stim Hormone (TSH)on 03-18-2024 TSH 1.290 uIU/mL Normal 0.358-3.740 [facility] Comment on above: Performed By: #### L 500.4050, L100.0100, L501.9520, L506.1000 #### [facility] [address] [place], [place], [address] Vitamin D,25 Hydroxyon 03-18 Vitamin D 25-OH 25.3 ng/mL Normal [facility] Comment on above: Result Comment: Elsie min D 25(OH) Status Range Deficiency <20 ng/mL (50nmol/L) Insufficiency 20 - 30 ng/mL (50 - 75 nmol/L) Sufficiency 30 - 100 ng/mL (75 - 250 nmol/L) Toxicity >100 ng/mL (>250 nmol/L) Performed By: #### L 500.4050, L100.0100, L501.9520, L506.1000 #### [facility] [address] [place], [address] Absolute lymphocyte countOrd ered By: Ramiro Tafoya on 09-11-2023 Lymphocytes Auto (Unsp spec) [#/Vol] 1.78 10*3/uL 0.83-4.51 [facility] Automated lymphocyte count a s percentage of total leukocytesOrdered By: Ramiro Tafoya on 09-11-2023 Lymphocytes/100 WBC Auto (Unsp spec) 20.5 % 19-41 [facility] Basophil percentageOrdered B y: Ramiro Tafoya on 09-11-2023 Basophils/100 WBC (Bld) 0.5 % 0-1 [facility] Bilirubin [Mass/Vol] 0.40 mg/dL 0.20-1.00 [facility] Comment on above: For patients on eltr ombopag therapy, use of Dimension [place] TBIL is not recommended. Chloride [Moles/Vol] 114 mmol/L 98-107 [facility] Eosinophils/100 WBC (Bld) 3.2 % 0-5 [facility] Glucose [Mass/Vol] 110 mg/dL 74-106 [facility] Comment on above: Fasting Glucose resu lt from 100 to 125 mg/dL suggests IMPAIRED HOMEOSTASIS per A.D.A. criteria. Hemoglobin (Bld) [Mass/Vol] 14.4 g/dL 13.0-16.5 [facility] Monocytes/100 WBC (Bld) 10.6 % 0-10 [facility] Neutrophils (Bld) [#/Vol] 5.6 10*3/uL 2.0-7.7 [facility] Neutrophils/100 WBC (Bld) 64.9 % 47-70 [facility] Potassium [Moles/Vol] 3.8 mmol/L 3.5-5.[address] [facility] Protein [Mass/Vol] 6.6 g/dL 6.4-8.2 [facility] Sodium [Moles/Vol] 141 mmol/L 136-145 [facility] WBC (Bld) [#/Vol] 8.7 10*3/uL 4.4-11.0 [facility] Determination of erythrocyte mean corpuscular volume (MCV)Ordered By: Ramiro Tafoya on 09-11-2023 MCV (RBC) [Entitic vol] 95.7 fL 80-94 [facility] Erythrocyte distribution wid th ratioOrdered By: [facility] on 09-11-2023 Erythrocyte distribution width (RBC) [Ratio] 13.2 % 11.6-14.6 [facility] Erythrocyte distribution wid th standard deviationOrdered By: Ramiro Tafoya on 09-11-2023 Erythrocyte distribution width (RBC) [Entitic vol] 46.5 fL 35.1-43.9 [facility] Hematocrit Auto (Bld) [Volum e fraction]Ordered By: Ramiro Tafoya 09-11-2023 Hematocrit (Bld) [Volume fraction] 44.1 % 40-54 [facility] Immature granulocytes/100 WB C Auto (Bld)Ordered By: Ramiro Tafoya 09-11-2023 Immature granulocytes/100 WBC (Bld) 0.300 % 0.0-0.9 [facility] Comment on above: IG% - Immature Granu locytes (promyelocytes, myelocytes and metamyelocytes) > 1% indicates that a LEFT SHIFT is Present. Laboratory - Chemistry and C hemistry - challengeOrdered By: Ramiro Tafoya on 09-11-2023 Albumin/Globulin [Mass ratio] 1.1 {ratio} 0.9-2.4 [facility] ALP [Catalytic activity/Vol] 66 U/L 45-117 [facility] ALT [Catalytic activity/Vol] 31 U/L 16-61 [facility] CO2 [Moles/Vol] 22.0 mmol/L 21.0-32.0 [facility] Globulin (S) [Mass/Vol] 3.1 g/dL 2.2-4.2 [facility] Urea nitrogen/Creatinine [Mass ratio] 16.0 mg/mg 10-20 [facility] - Hematology and Cell countsOrdered By: Ramiro Tafoya on 09-11-2023 MCH (RBC) [Entitic mass] 31.2 pg 27.0-32.0 [facility] MCHC (RBC) [Mass/Vol] 32.7 g/dL 32-[address] [facility] Nucleated RBC/100 WBC (Bld) [Ratio] 0 % 0-5 [facility] Platelet mean volume (Bld) [Entitic vol] 10.6 fL 6.2-12.0 [facility] Platelets (Bld) [#/Vol] 180 10*3/uL 150-450 [facility] No Panel InformationOrdered By: Ramiro Tafoya on 09-11-2023 Estimated GFR (MDRD) Amer 101 mL/min >60 [facility] Comment on above: GFR Calc Estimated GFR (MDRD) Non-Af Amer 83 mL/min >60 [facility] Comment on above: Non- GFR Calc Vitamin D 25-Hydroxy 39.5 ng/mL [facility] Comment on above: Vitamin D 25(OH) Sta tus Range Deficiency <20 ng/mL (50nmol/L) Insufficiency 20 - 30 ng/mL (50 - 75 nmol/L) Sufficiency 30 - 100 ng/mL (75 - 250 nmol/L) Toxicity >100 ng/mL (>250 nmol/L) RBC Auto (Bld) [#/Vol]Ordere d By: Ramiro Tafoya on 09-11-2023 RBC (Bld) [#/Vol] 4.61 10*6/uL 4.6-6.2 [facility] Serum or plasma calcium winsome urement (mass/volume)Ordered By: Ramiro Tafoya on 09-11-2023 Calcium [Mass/Vol] 8.4 mg/dL 8.5-10.1 [facility] Serum or plasma creatinine m easurement (mass/volume)Ordered By: Ramiro Tafoya on 09-11-2023 Creatinine [Mass/Vol] 0.94 mg/dL 0.70-1.[address] [facility] Comment on above: The validity of the calculated GFR & GFRAA in patients over 70 years has not been determined. Clinical correlation is essential. Serum or plasma thyroid stim ulating hormone (TSH) measurement (units/volume)Ordered By: Ramiro Tafoya on 09-11-2023 TSH Qn 0.71 uIU/mL 0.358-3.74 [facility] Serum or plasma urea nitroge n measurement (mass/volume)Ordered By: Ramiro Tafoya on 09-11-2023 Urea nitrogen [Mass/Vol] 15 mg/dL 7-18 [facility] Thin prep Papanicolaou smear with manual screeningOrdered By: Ramiro Tafoya on 09-11-2023 Thin prep Papanicolaou smear with manual screening 3.5 g/dL 3.2-5.0 [facility] Thin prep Papanicolaou smear with manual screening 21 U/L 15-37 [facility] Thin prep Papanicolaou smear with manual screening 5 5-15 [facility] .Auto Diffon 06-08-2023 Basophil, Absolute 0.0 10 3/mcL Normal 0.0-0.2 [facility] ([place]) Comment on above: Performed By: #### L D, CBC, CMP, ANEU, ADIFF, GFR #### [address] [address] Basophils/100 WBC (Bld) 0.6 % Normal 0.0-2.5 [facility] ([place]) Comment on above: Performed By: #### L D, CBC, CMP, ANEU, ADIFF, GFR #### [address] [address] Eosinophil, Absolute 0.2 10 3/mcL Normal 0.0-0.4 [facility] ([place]) Comment on above: Performed By: #### L D, CBC, CMP, ANEU, ADIFF, GFR #### [address] [address] Eosinophils/100 WBC (Bld) 4.0 % Normal 0.0-7.0 [facility] ([place]) Comment on above: Performed By: #### L D, CBC, CMP, ANEU, ADIFF, GFR #### [address] [address] Lymphocyte, Absolute 1.6 10 3/mcL Normal 0.8-3.9 [facility] ([place]) Comment on above: Performed By: #### L D, CBC, CMP, ANEU, ADIFF, GFR #### [address] [address] Lymphocytes/100 WBC (Bld) 28.9 % Normal 10.0-50.0 [facility] ([place]) Comment on above: Performed By: #### L D, CBC, CMP, ANEU, ADIFF, GFR #### [address] [address] Monocyte, Absolute 0.7 10 3/mcL Normal 0.2-1.0 [facility] ([place]) Comment on above: Performed By: #### L D, CBC, CMP, ANEU, ADIFF, GFR #### [address] [address] Monocytes/100 WBC (Bld) 12.2 % Normal 1.7-13.0 [facility] ([place]) Comment on above: Performed By: #### L D, CBC, CMP, ANEU, ADIFF, GFR #### [address] [address] Neutrophils/100 WBC (Bld) 54.3 % Normal 37.0-80.0 [facility] ([place]) Comment on above: Performed By: #### L D, CBC, CMP, ANEU, ADIFF, GFR #### [address] [address] .GFRon 06-08-2023 GFR 78 ml/min/1.73sqm Normal [facility] ([place]) Comment on above: Result Comment: GFR Population mean for , Non- Americans Ages 20-29 = 116 mL/min/1.73 sq.m. Ages 30-39 = 107 mL/min/1.73 sq.m. Ages 40-49 = 99 mL/min/1.73 sq.m. Ages 50-59 = 93 mL/min/1.73 sq.m. Ages 60-69 = 85 mL/min/1.73 sq.m. Ages 70+ = 75 mL/min/1.73 sq.m. Chronic Kidney Disease: Less than 60 mL/min/1.73 square meters End Stage Renal Disease: Less than 15 mL/min/1.73 square meters Performed By: #### L D, CBC, CMP, ANEU, ADIFF, GFR #### [address] [address] GFR Non- 64 ml/min/1.73sqm Normal [facility] ([place]) Comment on above: Result Comment: GFR Population mean for , Non- Americans Ages 20-29 = 116 mL/min/1.73 sq.m. Ages 30-39 = 107 mL/min/1.73 sq.m. Ages 40-49 = 99 mL/min/1.73 sq.m. Ages 50-59 = 93 mL/min/1.73 sq.m. Ages 60-69 = 85 mL/min/1.73 sq.m. Ages 70+ = 75 mL/min/1.73 sq.m. Chronic Kidney Disease: Less than 60 mL/min/1.73 square meters End Stage Renal Disease: Less than 15 mL/min/1.73 square meters Performed By: #### L D, CBC, CMP, ANEU, ADIFF, GFR #### [address] [address] .NEUABSon 06-08-2023 Neutrophil, Absolute 3.1 10 3/mcL Normal 2.9-6.2 [facility] ([place]) Comment on above: Performed By: #### L D, CBC, CMP, ANEU, ADIFF, GFR #### [address] [address] CBCon 06-08-2023 Erythrocyte distribution width (RBC) [Ratio] 13.7 % Normal 11.5-14.5 [facility] ([place]) Comment on above: Performed By: #### L D, CBC, CMP, ANEU, ADIFF, GFR #### [address] [address] Hematocrit (Bld) [Volume fraction] 44.8 % Normal 42.0-52.0 [facility] ([place]) Comment on above: Performed By: #### L D, CBC, CMP, ANEU, ADIFF, GFR #### [address] [address] Hgb 15.2 G/dL Normal 14.0-18.0 [facility] ([place]) Comment on above: Performed By: #### L D, CBC, CMP, ANEU, ADIFF, GFR #### [address] [address] MCH (RBC) [Entitic mass] 32.1 pg High 27.0-31.2 [facility] ([place]) Comment on above: Performed By: #### L D, CBC, CMP, ANEU, ADIFF, GFR #### [address] [address] MCHC 34.0 G/dL Normal 31.8-35.4 [facility] ([place]) Comment on above: Performed By: #### L D, CBC, CMP, ANEU, ADIFF, GFR #### [address] [address] MCV (RBC) [Entitic vol] 94.4 fL High 80.0-94.0 [facility] ([place]) Comment on above: Performed By: #### L D, CBC, CMP, ANEU, ADIFF, GFR #### [address] [address] Platelet 172 10 3/mcL Normal 130-400 [facility] ([place]) Comment on above: Performed By: #### L D, CBC, CMP, ANEU, ADIFF, GFR #### [address] [address] Platelet mean volume (Bld) [Entitic vol] 8.3 fL Normal 7.4-10.4 [facility] ([place]) Comment on above: Performed By: #### L D, CBC, CMP, ANEU, ADIFF, GFR #### [address] [address] RBC 4.74 10 6/mcL Normal 4.04-6.13 [facility] ([place]) Comment on above: Performed By: #### L D, CBC, CMP, ANEU, ADIFF, GFR #### [address] [address] WBC 5.7 10 3/mcL Normal 4.6-10.8 [facility] ([place]) Comment on above: Performed By: #### L D, CBC, CMP, ANEU, ADIFF, GFR #### [address] [address] CMPon 06-08-2023 Albumin Level 3.7 G/dL Normal 3.4-4.8 [facility] ([place]) Comment on above: Performed By: #### L D, CBC, CMP, ANEU, ADIFF, GFR #### [address] [address] Albumin/Globulin [Mass ratio] 1.2 {ratio} Normal 1.1-2.5 [facility] ([place]) Comment on above: Performed By: #### L D, CBC, CMP, ANEU, ADIFF, GFR #### [address] [address] ALP [Catalytic activity/Vol] 74 U/L Normal 40-135 [facility] ([place]) Comment on above: Performed By: #### L D, CBC, CMP, ANEU, ADIFF, GFR #### [address] [address] ALT [Catalytic activity/Vol] 30 U/L Normal 16-63 [facility] ([place]) Comment on above: Performed By: #### L D, CBC, CMP, ANEU, ADIFF, GFR #### [address] [address] AST [Catalytic activity/Vol] 15 U/L Normal 10-40 [facility] ([place]) Comment on above: Performed By: #### L D, CBC, CMP, ANEU, ADIFF, GFR #### [address] [address] Bili Total 1.0 mg/dL Normal 0.2-1.0 [facility] ([place]) Comment on above: Result Comment: Use of this assay is not recommended for patients undergoing treatment with eltrombopag due to the potential for falsely elevated results. Performed By: #### L D, CBC, CMP, ANEU, ADIFF, GFR #### [address] [address] BUN/Creatinine Ratio 15 ratio Normal 7-27 [facility] ([place]) Comment on above: Performed By: #### L D, CBC, CMP, ANEU, ADIFF, GFR #### [address] [address] Calcium [Mass/Vol] 9.1 mg/dL Normal 8.4-10.2 [facility] ([place]) Comment on above: Performed By: #### L D, CBC, CMP, ANEU, ADIFF, GFR #### [address] [address] Chloride [Moles/Vol] 106 mmol/L Normal 98-107 [facility] ([place]) Comment on above: Performed By: #### L D, CBC, CMP, ANEU, ADIFF, GFR #### [address] [address] CO2 [Moles/Vol] 28 mmol/L Normal 23-31 [facility] ([place]) Comment on above: Performed By: #### L D, CBC, CMP, ANEU, ADIFF, GFR #### [address] [address] Creatinine [Mass/Vol] 1.11 mg/dL Normal 0.70-1.30 [facility] ([place]) Comment on above: Performed By: #### L D, CBC, CMP, ANEU, ADIFF, GFR #### [address] [address] Electrolyte Balance 9.0 mEq/L Normal 4.0-15.0 [facility] ([place]) Comment on above: Performed By: #### L D, CBC, CMP, ANEU, ADIFF, GFR #### [address] [address] Globulin 3.1 G/dL Normal [facility] ([place]) Comment on above: Performed By: #### L D, CBC, CMP, ANEU, ADIFF, GFR #### [address] [address] Glucose [Mass/Vol] 88 mg/dL Normal 83-110 [facility] Comment on above: Performed By: #### L D, CBC, CMP, ANEU, ADIFF, GFR #### [address] [address] Potassium [Moles/Vol] 4.7 mmol/L Normal 3.5-5.1 [facility]) Comment on above: Performed By: #### L D, CBC, CMP, ANEU, ADIFF, GFR #### [address] [address] Sodium [Moles/Vol] 143 mmol/L Normal 136-145 [facility] ([place]) Comment on above: Performed By: #### L D, CBC, CMP, ANEU, ADIFF, GFR #### [address] [address] Total Protein 6.8 G/dL Normal 6.4-8.2 [facility]) Comment on above: Performed By: #### L D, CBC, CMP, ANEU, ADIFF, GFR #### [address] [address] Urea nitrogen [Mass/Vol] 17 mg/dL Normal 7-18 [facility] ([place]) Comment on above: Performed By: #### L D, CBC, CMP, ANEU, ADIFF, GFR #### [address] [address] LABORATORYOrdered By: SYSTEM SYSTEM on 06-08-2023 Albumin BCP dye [Mass/Vol] 3.7 G/dL Normal 3.4 - 4.8 G/dL AO ADM SS Albumin/Globulin [Mass ratio] 1.2 {ratio} Normal 1.1 - 2.5 ratio AO ADM SS ALP [Catalytic activity/Vol] 74 U/L Normal 40 - 135 U/L AO ADM SS ALT With P-5'-P [Catalytic activity/Vol] 30 U/L Normal 16 - 63 U/L AO ADM SS AST With P-5'-P [Catalytic activity/Vol] 15 U/L Normal 10 - 40 U/L AO ADM SS Basophil, Absolute 0.0 103/mcL Normal 0.0 - 0.2 10^3/mcL AO Workflow SS Basophils/100 WBC (Bld) 0.6 % Normal 0.0 - 2.5 % AO Workflow SS Bilirubin [Mass/Vol] 1.0 mg/dL Normal 0.2 - 1 .0 mg/dL AO ADM SS Comment on above: Interpretive Data: U se of this assay is not recommended for patients undergoing treatment with eltrombopag due to the potential for falsely elevated results. Calcium [Mass/Vol] 9.1 mg/dL Normal 8.4 - 10. 2 mg/dL AO ADM SS Chloride [Moles/Vol] 106 mmol/L Normal 98 - 10 7 mmol/L AO ADM SS CO2 [Moles/Vol] 28 mmol/L Normal 23 - 31 mmol/L AO ADM SS Creatinine [Mass/Vol] 1.11 mg/dL Normal 0.70 - 1.30 mg/dL AO ADM SS Electrolyte Balance 9.0 mEq/L Normal 4.0 - 15 .0 mEq/L AO ADM SS Eosinophil, Absolute 0.2 103/mcL Normal 0.0 - 0 .4 10^3/mcL AO Workflow SS Eosinophils/100 WBC (Bld) 4.0 % Normal 0.0 - 7.0 % AO Workflow SS Erythrocyte distribution width (RBC) [Ratio] 13.7 % Normal 11.5 - 14.5 % AO Workflow SS GFR/1.73 sq M.predicted among blacks MDRD (S/P/Bld) [Vol rate/Area] 78 ml/min/1.73sqm Invalid Interpretation Code AO Chemistry S Comment on above: Interpretive Data: GFR Population mean for , Non- Americans Ages 20-29 = 116 mL/min/1.73 sq.m. Ages 30-39 = 107 mL/min/1.73 sq.m. Ages 40-49 = 99 mL/min/1.73 sq.m. Ages 50-59 = 93 mL/min/1.73 sq.m. Ages 60-69 = 85 mL/min/1.73 sq.m. Ages 70+ = 75 mL/min/1.73 sq.m. Chronic Kidney Disease: Less than 60 mL/min/1.73 square meters End Stage Renal Disease: Less than 15 mL/min/1.73 square meters GFR/1.73 sq M.predicted among non-blacks MDRD (S/P/Bld) [Vol rate/Area] 64 ml/min/1.73sqm Invalid Interpretation Code AO Chemistry S Comment on above: Interpretive Data: GFR Population mean for , Non- Americans Ages 20-29 = 116 mL/min/1.73 sq.m. Ages 30-39 = 107 mL/min/1.73 sq.m. Ages 40-49 = 99 mL/min/1.73 sq.m. Ages 50-59 = 93 mL/min/1.73 sq.m. Ages 60-69 = 85 mL/min/1.73 sq.m. Ages 70+ = 75 mL/min/1.73 sq.m. Chronic Kidney Disease: Less than 60 mL/min/1.73 square meters End Stage Renal Disease: Less than 15 mL/min/1.73 square meters Globulin 3.1 G/dL Invalid Interpretation Code AO ADM SS Glucose [Mass/Vol] 88 mg/dL Normal 83 - 110 mg/dL AO ADM SS Hematocrit (Bld) [Volume fraction] 44.8 % Normal 42.0 - 52.0 % AO Workflow SS Hemoglobin (Bld) [Mass/Vol] 15.2 G/dL Normal 14.0 - 18.0 G/dL AO Workflow SS LDH [Catalytic activity/Vol] 137 U/L Normal 85 - 227 U/L AO ADM SS Lymphocyte, Absolute 1.6 103/mcL Normal 0.8 - 3 .9 10^3/mcL AO Workflow SS Lymphocytes/100 WBC (Bld) 28.9 % Normal 10.0 - 50.0 % AO Workflow SS MCH (RBC) [Entitic mass] 32.1 pg High 27.0 - 31.2 pg AO Workflow SS MCHC 34.0 G/dL Normal 31.8 - 35.4 G/dL AO Workflow SS MCV (RBC) [Entitic vol] 94.4 fL High 80.0 - 94.0 fL AO Workflow SS Monocyte, Absolute 0.7 103/mcL Normal 0.2 - 1.0 10^3/mcL AO Workflow SS Monocytes/100 WBC (Bld) 12.2 % Normal 1.7 - 13.0 % AO Workflow SS Neutrophil, Absolute 3.1 103/mcL Normal 2.9 - 6 .2 10^3/mcL AO Workflow SS Neutrophils/100 WBC (Bld) 54.3 % Normal 37.0 - 80.0 % AO Workflow SS Platelet mean volume (Bld) [Entitic vol] 8.3 fL Normal 7.4 - 10.4 fL AO Workflow SS Platelets (Bld) [#/Vol] 172 103/mcL Normal 130 - 400 10^3/mcL AO Workflow SS Potassium [Moles/Vol] 4.7 mmol/L Normal 3.5 - 5.1 mmol/L AO ADM SS Protein [Mass/Vol] 6.8 G/dL Normal 6.4 - 8.2 G/dL AO ADM SS RBC (Bld) [#/Vol] 4.74 106/mcL Normal 4.04 - 6.1 3 10^6/mcL AO Workflow SS Sodium [Moles/Vol] 143 mmol/L Normal 136 - 145 mmol/L AO ADM SS Urea nitrogen [Mass/Vol] 17 mg/dL Normal 7 - 18 mg/dL AO ADM SS Urea nitrogen/Creatinine [Mass ratio] 15 ratio Normal 7 - 27 ratio AO ADM SS WBC (Bld) [#/Vol] 5.7 103/mcL Normal 4.6 - 10.8 10^3/mcL AO Workflow SS LDHon 06-08-2023 LDH 137 U/L Normal 85-227 [facility] ([place]) Comment on above: Performed By: #### L D, CBC, CMP, ANEU, ADIFF, GFR #### [address] [address] Absolute lymphocyte countOrd ered By: Ramiro Tafoya on 03-15-2023 Lymphocytes Auto (Unsp spec) [#/Vol] 2.45 10*3/uL 0.83-4.51 [facility] Basophil percentageOrdered B y: Ramiro Tafoya on 03-15-2023 Basophils/100 WBC (Bld) 0.5 % 0-1 [facility] Bilirubin [Mass/Vol] 0.60 mg/dL 0.20-1.00 [facility] Comment on above: For patients on eltr ombopag therapy, use of Dimension [place] TBIL is not recommended. Chloride [Moles/Vol] 112 mmol/L 98-107 [facility] Eosinophils/100 WBC (Bld) 3.5 % 0-5 [facility] Glucose [Mass/Vol] 108 mg/dL 74-106 [facility] Comment on above: Fasting Glucose resu lt from 100 to 125 mg/dL suggests IMPAIRED HOMEOSTASIS per A.D.A. criteria. Neutrophils (Bld) [#/Vol] 4.2 10*3/uL 2.0-7.7 [facility] Neutrophils/100 WBC (Bld) 53.7 % 47-70 [facility] Potassium [Moles/Vol] 3.9 mmol/L 3.5-5.[address] [facility] Protein [Mass/Vol] 6.9 g/dL 6.4-8.2 [facility] Sodium [Moles/Vol] 141 mmol/L 136-145 [facility] WBC (Bld) [#/Vol] 7.7 10*3/uL 4.4-11.0 [facility] Blood erythrocytes count (nu mber/volume)Ordered By: Ramiro Taofya on 03-15-2023 RBC (Bld) [#/Vol] 4.85 10*6/uL 4.6-6.2 [facility] Blood hemoglobin measurement (mass/volume)Ordered By: Ramiro Tafoya on 03-15-2023 Hemoglobin (Bld) [Mass/Vol] 15.0 g/dL 13.0-16.5 [facility] Blood lymphocytes/100 leukoc ytesOrdered By: Ramiro Tafoya on 03-15-2023 Lymphocytes/100 WBC (Bld) 31.7 % 19-41 [facility] Blood monocytes/100 leukocyt esOrdered By: Ramiro Tafoya on 03-15-2023 Monocytes/100 WBC (Bld) 10.3 % 0-10 [facility] Blood platelet mean volumeOr dered By: Ramiro Tafoya on 03-15-2023 Platelet mean volume (Bld) [Entitic vol] 10.0 fL 6.2-12.0 [facility] Determination of erythrocyte mean corpuscular volume (MCV)Ordered By: Ramiro Michelet on 03-15-2023 MCV (RBC) [Entitic vol] 96.9 fL 80-94 [facility] Hematocrit Auto (Bld) [Volum e fraction]Ordered By: [facility] on 03-15-2023 Hematocrit (Bld) [Volume fraction] 47.0 % 40-54 [facility] Laboratory - Chemistry and C hemistry - challengeOrdered By: [facility] on 03-15-2023 ALP [Catalytic activity/Vol] 66 U/L 45-117 [facility] ALT [Catalytic activity/Vol] 24 U/L 16-61 [facility] CO2 [Moles/Vol] 22.0 mmol/L 21.0-32.0 [facility] Globulin (S) [Mass/Vol] 3.2 g/dL 2.2-4.2 [facility] Urea nitrogen/Creatinine [Mass ratio] 19.3 mg/mg 10-20 [facility] Laboratory - Hematology and Cell countsOrdered By: [facility] 03-15-2023 Erythrocyte distribution width (RBC) [Entitic vol] 46.6 fL 35.1-43.9 [facility] Erythrocyte distribution width (RBC) [Ratio] 13.0 % 11.6-14.6 [facility] Immature granulocytes/100 WBC (Bld) 0.300 % 0.0-0.9 [facility] Comment on above: IG% - Immature Granu locytes (promyelocytes, myelocytes and metamyelocytes) > 1% indicates that a LEFT SHIFT is Present. MCH (RBC) [Entitic mass] 30.9 pg 27.0-32.0 [facility] Nucleated RBC/100 WBC (Bld) [Ratio] 0 % 0-5 [facility] MCHC Auto (RBC) [Mass/Vol]Or dered By: [facility] on 03-15-2023 MCHC (RBC) [Mass/Vol] 31.9 g/dL 32-[address] [facility] No Panel InformationOrdered By: [facility] on 03-15-[facility]23 Estimated GFR (MDRD) Amer 101 mL/min >60 [facility] Comment on above: GFR Calc Estimated GFR (MDRD) Non-Af Amer 83 mL/min >60 [facility] Comment on above: Non- GFR Calc Thyroid Stimulating Hormone (TSH) 0.84 uIU/mL 0.358-3.74 [facility] Vitamin D 25-Hydroxy 41.4 ng/mL [facility] Comment on above: Vitamin D 25(OH) Sta tus Range Deficiency <20 ng/mL (50nmol/L) Insufficiency 20 - 30 ng/mL (50 - 75 nmol/L) Sufficiency 30 - 100 ng/mL (75 - 250 nmol/L) Toxicity >100 ng/mL (>250 nmol/L) Platelets bldOrdered By: Ramiro Tafoya on 03-15-2023 Platelets (Bld) [#/Vol] 196 10*3/uL 150-450 [facility] Serum or plasma albumin winsome urement (mass/volume)Ordered By: Ramiro Tafoya on 03-15-2023 Albumin [Mass/Vol] 3.7 g/dL 3.2-5.0 [facility] Serum or plasma albumin/glob ulin mass ratioOrdered By: Ramiro Tafoya on 03-15-2023 Albumin/Globulin [Mass ratio] 1.2 {ratio} 0.9-2.4 [facility] Serum or plasma calcium winsome urement (mass/volume)Ordered By: Ramiro Tafoya on 03-15-2023 Calcium [Mass/Vol] 8.6 mg/dL 8.5-10.1 [facility] Serum or plasma creatinine m easurement (mass/volume)Ordered By: Ramiro Tafoya on 03-15-2023 Creatinine [Mass/Vol] 0.94 mg/dL 0.70-1.[address] [facility] Comment on above: The validity of the calculated GFR & GFRAA in patients over 70 years has not been determined. Clinical correlation is essential. Serum or plasma urea nitroge n measurement (mass/volume)Ordered By: Ramiro Tafoya on 03-15-2023 Urea nitrogen [Mass/Vol] 18 mg/dL - [facility] Thin prep Papanicolaou smear with manual screeningOrdered By: Ramiro Tafoya on 03-15-2023 Thin prep Papanicolaou smear with manual screening 17 U/L 15-37 [facility] Thin prep Papanicolaou smear with manual screening 7 5-15 [facility] Absolute lymphocyte countOrd ered By: Dr. Tafoya on 09-08-2022 Lymphocytes Auto (Unsp spec) [#/Vol] 2.40 10*3/uL 0.83-4.51 [facility] Basophil percentageOrdered B y: Dr. Tafoya on 09-08-2022 Basophils/100 WBC (Bld) 0.4 % 0-1 [facility] Bilirubin [Mass/Vol] 0.50 mg/dL 0.20-1.00 [facility] Comment on above: For patients on eltr ombopag therapy, use of Dimension [place] TBIL is not recommended. Chloride [Moles/Vol] 107 mmol/L 98-107 [facility] Eosinophils/100 WBC (Bld) 3.9 % 0-5 [facility] Glucose [Mass/Vol] 93 mg/dL 74-106 [facility] Neutrophils (Bld) [#/Vol] 3.5 10*3/uL 2.0-7.7 [facility] Neutrophils/100 WBC (Bld) 50.1 % 47-70 [facility] Potassium [Moles/Vol] 4.1 mmol/L 3.5-5.[address] [facility] Protein [Mass/Vol] 7.4 g/dL 6.4-8.2 [facility] Sodium [Moles/Vol] 136 mmol/L 136-145 [facility] WBC (Bld) [#/Vol] 6.9 10*3/uL 4.4-11.0 [facility] Blood erythrocytes count (nu mber/volume)Ordered By: Dr. Tafoya on 09-08-2022 RBC (Bld) [#/Vol] 4.66 10*6/uL 4.6-6.2 [facility] Blood hemoglobin measurement (mass/volume)Ordered By: Dr. Tafoya on 09-08-2022 Hemoglobin (Bld) [Mass/Vol] 15.1 g/dL 13.0-16.5 [facility] Blood lymphocytes/100 leukoc ytesOrdered By: Dr. Tafoya on 09-08-2022 Lymphocytes/100 WBC (Bld) 34.6 % 19-41 [facility] Blood monocytes/100 leukocyt esOrdered By: Dr. Tafoya on 09-08-2022 Monocytes/100 WBC (Bld) 10.7 % 0-10 [facility] Blood platelet mean volumeOr dered By: Dr. Tafoya on 09-08-2022 Platelet mean volume (Bld) [Entitic vol] 9.9 fL 6.2-12.0 [facility] Determination of erythrocyte mean corpuscular volume (MCV)Ordered By: Dr. Tafoya on 09-08-2022 MCV (RBC) [Entitic vol] 96.6 fL 80-94 [facility] Hematocrit Auto (Bld) [Volum e fraction]Ordered By: Dr. Tafoya on 09-08-2022 Hematocrit (Bld) [Volume fraction] 45.0 % 40-54 [facility] Laboratory - Chemistry and C hemistry - challengeOrdered By: Dr. Tafoya on 09-08-2022 ALP [Catalytic activity/Vol] 64 U/L 45-117 [facility] ALT [Catalytic activity/Vol] 25 U/L 16-61 [facility] CO2 [Moles/Vol] 27.0 mmol/L 21.0-32.0 [facility] Globulin (S) [Mass/Vol] 3.7 g/dL 2.2-4.2 [facility] Urea nitrogen/Creatinine [Mass ratio] 18.4 mg/mg 10-20 [facility] Laboratory - Hematology and Cell countsOrdered By: Dr. Tafoya on 09-08-2022 Erythrocyte distribution width (RBC) [Entitic vol] 46.4 fL 35.1-43.9 [facility] Erythrocyte distribution width (RBC) [Ratio] 13.0 % 11.6-14.6 [facility] Immature granulocytes/100 WBC (Bld) 0.300 % 0.0-0.9 [facility] Comment on above: IG% - Immature Granu locytes (promyelocytes, myelocytes and metamyelocytes) > 1% indicates that a LEFT SHIFT is Present. MCH (RBC) [Entitic mass] 32.4 pg 27.0-32.0 [facility] Nucleated RBC/100 WBC (Bld) [Ratio] 0 % 0-5 [facility] MCHC Auto (RBC) [Mass/Vol]Or dered By: Dr. Tafoya on 09-08-2022 MCHC (RBC) [Mass/Vol] 33.6 g/dL 32-[address] [facility] No Panel InformationOrdered By: Dr. Tafoya on 09-08-2022 Estimated GFR (MDRD) Amer 90 mL/min >60 [facility] Comment on above: GFR Calc Estimated GFR (MDRD) Non-Af Amer 75 mL/min >60 [facility] Comment on above: Non- GFR Calc Thyroid Stimulating Hormone (TSH) 0.94 uIU/mL 0.358-3.74 [facility] Vitamin D 25-Hydroxy 61.8 ng/mL [facility] Comment on above: Vitamin D 25(OH) Sta tus Range Deficiency <20 ng/mL (50nmol/L) Insufficiency 20 - 30 ng/mL (50 - 75 nmol/L) Sufficiency 30 - 100 ng/mL (75 - 250 nmol/L) Toxicity >100 ng/mL (>250 nmol/L) Platelets bldOrdered By: Dr. Tafoya on 09-08-2022 Platelets (Bld) [#/Vol] 187 10*3/uL 150-450 [facility] Serum or plasma albumin winsome urement (mass/volume)Ordered By: Dr. Tafoya on 09-08-2022 Albumin [Mass/Vol] 3.7 g/dL 3.2-5.0 [facility] Serum or plasma albumin/glob ulin mass ratioOrdered By: Dr. Tafoya on 09-08-2022 Albumin/Globulin [Mass ratio] 1.0 {ratio} 0.9-2.4 [facility] Serum or plasma calcium winsome urement (mass/volume)Ordered By: Dr. Tafoya on 09-08-2022 Calcium [Mass/Vol] 9.0 mg/dL 8.5-10.1 [facility] Serum or plasma creatinine m easurement (mass/volume)Ordered By: Dr. Tafoya on 09-08-2022 Creatinine [Mass/Vol] 1.03 mg/dL 0.70-1.[address] [facility] Comment on above: The validity of the calculated GFR & GFRAA in patients over 70 years has not been determined. Clinical correlation is essential. Serum or plasma urea nitroge n measurement (mass/volume)Ordered By: Dr. Tafoya on 09-08-2022 Urea nitrogen [Mass/Vol] 19 mg/dL 7-18 [facility] Thin prep Papanicolaou smear with manual screeningOrdered By: Dr. Tafoya on 09-08-2022 Thin prep Papanicolaou smear with manual screening 20 U/L 15-37 [facility] Thin prep Papanicolaou smear with manual screening 2 5-15 [facility] LABORATORYOrdered By: Janna Ghotra on 04-26-2022 Albumin BCP dye [Mass/Vol] 3.9 G/dL Invalid Interpretation Code 3.4 - 4.8 G/dL AO ADM SS Albumin/Globulin [Mass ratio] 1.4 {ratio} Invalid Interpretation Code 1.1 - 2.5 ratio AO ADM SS ALP [Catalytic activity/Vol] 65 U/L Invalid Interpretation Code 40 - 135 U/L AO ADM SS ALT With P-5'-P [Catalytic activity/Vol] 25 U/L Invalid Interpretation Code 16 - 63 U/L AO ADM SS AST With P-5'-P [Catalytic activity/Vol] 19 U/L Invalid Interpretation Code 10 - 40 U/L AO ADM SS Bilirubin [Mass/Vol] 0.4 mg/dL Invalid Interpretation Code 0.2 - 1.0 mg/dL AO ADM SS Calcium [Mass/Vol] 8.9 mg/dL Invalid Interpretation Code 8.4 - 10.2 mg/dL AO ADM SS Chloride [Moles/Vol] 107 mmol/L Invalid Interpretation Code 98 - 107 mmol/L AO ADM SS CO2 [Moles/Vol] 25 mmol/L Invalid Interpretation Code 23 - 31 mmol/L AO ADM SS Creatinine [Mass/Vol] 0.85 mg/dL Invalid Interpretation Code 0.70 - 1.30 mg/dL AO ADM SS Electrolyte Balance 8.0 mEq/L Invalid Interpretation Code 4.0 - 15.0 mEq/L AO ADM SS Globulin 2.7 G/dL Invalid Interpretation Code AO ADM SS Glucose [Mass/Vol] 82 mg/dL Invalid Interpretation Code 83 - 110 mg/dL AO ADM SS LDH [Catalytic activity/Vol] 149 U/L Invalid Interpretation Code 85 - 227 U/L AO ADM SS Potassium [Moles/Vol] 4.1 mmol/L Invalid Interpretation Code 3.5 - 5.1 mmol/L AO ADM SS Protein [Mass/Vol] 6.6 G/dL Invalid Interpretation Code 6.4 - 8.2 G/dL AO ADM SS Sodium [Moles/Vol] 140 mmol/L Invalid Interpretation Code 136 - 145 mmol/L AO ADM SS Urea nitrogen [Mass/Vol] 19 mg/dL Invalid Interpretation Code 7 - 18 mg/dL AO ADM SS Urea nitrogen/Creatinine [Mass ratio] 22 ratio Invalid Interpretation Code 7 - 27 ratio AO ADM SS LABORATORYOrdered By: Vi Chaudhary on 04-26-2022 Basophil, Absolute 0.0 103/mcL Invalid Interpretation Code 0.0 - 0.2 10^3/mcL AO Workflow SS Basophils/100 WBC (Bld) 0.3 % Invalid Interpretation Code 0.0 - 2.5 % AO Workflow SS Eosinophil, Absolute 0.3 103/mcL Invalid Interpretation Code 0.0 - 0.4 10^3/mcL AO Workflow SS Eosinophils/100 WBC (Bld) 4.4 % Invalid Interpretation Code 0.0 - 7.0 % AO Workflow SS Erythrocyte distribution width (RBC) [Ratio] 13.7 % Invalid Interpretation Code 11.5 - 14.5 % AO Workflow SS Hematocrit (Bld) [Volume fraction] 43.9 % Invalid Interpretation Code 42.0 - 52.0 % AO Workflow SS Hemoglobin (Bld) [Mass/Vol] 14.9 G/dL Invalid Interpretation Code 14.0 - 18.0 G/dL AO Workflow SS Lymphocyte, Absolute 2.3 103/mcL Invalid Interpretation Code 0.8 - 3.9 10^3/mcL AO Workflow SS Lymphocytes/100 WBC (Bld) 33.0 % Invalid Interpretation Code 10.0 - 50.0 % AO Workflow SS MCH (RBC) [Entitic mass] 31.6 pg Invalid Interpretation Code 27.0 - 31.2 pg AO Workflow SS MCHC 33.9 G/dL Invalid Interpretation Code 31.8 - 35.4 G/dL AO Workflow SS MCV (RBC) [Entitic vol] 93.3 fL Invalid Interpretation Code 80.0 - 94.0 fL AO Workflow SS Monocyte, Absolute 0.8 103/mcL Invalid Interpretation Code 0.2 - 1.0 10^3/mcL AO Workflow SS Monocytes/100 WBC (Bld) 11.4 % Invalid Interpretation Code 1.7 - 13.0 % AO Workflow SS Neutrophil, Absolute 3.5 103/mcL Invalid Interpretation Code 2.9 - 6.2 10^3/mcL AO Workflow SS Neutrophils/100 WBC (Bld) 50.9 % Invalid Interpretation Code 37.0 - 80.0 % AO Workflow SS Platelet mean volume (Bld) [Entitic vol] 8.5 fL Invalid Interpretation Code 7.4 - 10.4 fL AO Workflow SS Platelets (Bld) [#/Vol] 173 103/mcL Invalid Interpretation Code 130 - 400 10^3/mcL AO Workflow SS RBC (Bld) [#/Vol] 4.70 106/mcL Invalid Interpretation Code 4.04 - 6.13 10^6/mcL AO Workflow SS WBC (Bld) [#/Vol] 6.9 103/mcL Invalid Interpretation Code 4.6 - 10.8 10^3/mcL AO Workflow SS LABORATORYOrdered By: [facility] on 04-26-2022 GFR 106 ml/min/1.73sqm Invalid Interpretation Code AO Chemistry S GFR Non- 88 ml/min/1.73sqm Invalid Interpretation Code AO Chemistry S Absolute lymphocyte counton 08-30-2021 Lymphocytes Auto (Unsp spec) [#/Vol] 2.32 10*3/uL 0.83-4.51 [facility] Work Phone: Basophil percentageon 2021 Basophils/100 WBC (Bld) 0.6 % 0-1 [facility] Work Phone: Bilirubin [Mass/Vol] 0.50 mg/dL 0.20-1.00 [facility] Work Phone: Comment on above: For patients on eltr ombopag therapy, use of Dimension [place] TBIL is not recommended. Chloride [Moles/Vol] 111 mmol/L 98-107 [facility] Work Phone: Eosinophils/100 WBC (Bld) 4.1 % 0-5 [facility] Work Phone: Glucose [Mass/Vol] 102 mg/dL 74-106 [facility] Work Phone: Comment on above: Fasting Glucose resu lt from 100 to 125 mg/dL suggests IMPAIRED HOMEOSTASIS per A.D.A. criteria. Neutrophils (Bld) [#/Vol] 4.4 10*3/uL 2.0-7.7 [facility] Work Phone: Neutrophils/100 WBC (Bld) 54.6 % 47-70 [facility] Work Phone: Potassium [Moles/Vol] 3.8 mmol/L 3.5-5.1 [facility] Work Phone: Protein [Mass/Vol] 6.8 g/dL 6.4-8.2 [facility] Work Phone: Sodium [Moles/Vol] 138 mmol/L 136-145 [facility] Work Phone: WBC (Bld) [#/Vol] 8.0 10*3/uL 4.4-11.0 [facility] Work Phone: Blood erythrocytes count (nu mber/volume)on 08-30-2021 RBC (Bld) [#/Vol] 4.74 10*6/uL 4.6-6.2 [facility] Work Phone: Blood hemoglobin measurement (mass/volume)on 08-30-2021 Hemoglobin (Bld) [Mass/Vol] 14.9 g/dL 13.0-16.5 [facility] Work Phone: Blood lymphocytes/100 leukoc yteson 08-30-2021 Lymphocytes/100 WBC (Bld) 28.9 % 19-41 [facility] Work Phone: Blood monocytes/100 leukocyt eson 08-30-2021 Monocytes/100 WBC (Bld) 11.7 % 0-10 [facility] Work Phone: Blood platelet mean volumeon 08-30-2021 Platelet mean volume (Bld) [Entitic vol] 10.1 fL 6.2-12.0 [facility] Work Phone: Determination of erythrocyte mean corpuscular volume (MCV)on 08-30-2021 MCV (RBC) [Entitic vol] 93.5 fL 80-94 [facility] Work Phone: Hematocrit Auto (Bld) [Volum e fraction]on 08-30-2021 Hematocrit (Bld) [Volume fraction] 44.3 % 40-54 [facility] Work Phone: Laboratory - Chemistry and C hemistry - challengeon 08-30-2021 ALP [Catalytic activity/Vol] 64 U/L 45-117 [facility] Work Phone: ALT [Catalytic activity/Vol] 25 U/L 16-61 [facility] Work Phone: CO2 [Moles/Vol] 21.0 mmol/L 21.0-32.0 [facility] Work Phone: Globulin (S) [Mass/Vol] 3.2 g/dL 2.2-4.2 [facility] Work Phone: Urea nitrogen/Creatinine [Mass ratio] 18.6 mg/mg 10-20 [facility] Work Phone: Laboratory - Hematology and Cell countson 08-30-2021 Erythrocyte distribution width (RBC) [Entitic vol] 44.1 fL 35.1-43.9 [facility] Work Phone: Erythrocyte distribution width (RBC) [Ratio] 12.8 % 11.6-14.6 [facility] Work Phone: Immature granulocytes/100 WBC (Bld) 0.100 % 0.0-0.9 [facility] Work Phone: Comment on above: IG% - Immature Granu locytes (promyelocytes, myelocytes and metamyelocytes) > 1% indicates that a LEFT SHIFT is Present. MCH (RBC) [Entitic mass] 31.4 pg 27.0-32.0 [facility] Work Phone: Nucleated RBC/100 WBC (Bld) [Ratio] 0 % 0-5 [facility] Work Phone: MCHC Auto (RBC) [Mass/Vol]on 08-30-2021 MCHC (RBC) [Mass/Vol] 33.6 g/dL 32-[address] [facility] Work Phone: No Panel Informationon 08-30 Estimated GFR (MDRD) Amer 92 mL/min >60 [facility] Work Phone: Comment on above: GFR Calc Estimated GFR (MDRD) Non-Af Amer 76 mL/min >60 [facility] Work Phone: Comment on above: Non- GFR Calc Thyroid Stimulating Hormone (TSH) 1.17 uIU/mL 0.358-3.74 [facility] Work Phone: Vitamin D 25-Hydroxy 44.6 ng/mL [facility] Work Phone: Comment on above: Vitamin D 25(OH) Sta tus Range Deficiency <20 ng/mL (50nmol/L) Insufficiency 20 - 30 ng/mL (50 - 75 nmol/L) Sufficiency 30 - 100 ng/mL (75 - 250 nmol/L) Toxicity >100 ng/mL (>250 nmol/L) Platelets bldon 08-30-2021 Platelets (Bld) [#/Vol] 196 10*3/uL 150-450 [facility] Work Phone: Serum or plasma albumin winsome urement (mass/volume)on 08-30-2021 Albumin [Mass/Vol] 3.6 g/dL 3.2-5.0 [facility] Work Phone: Serum or plasma albumin/glob ulin mass ratioon 08-30-2021 Albumin/Globulin [Mass ratio] 1.1 {ratio} 0.9-2.4 [facility] Work Phone: Serum or plasma calcium winsome urement (mass/volume)on 08-30-2021 Calcium [Mass/Vol] 8.9 mg/dL 8.5-10.1 [facility] Work Phone: Serum or plasma creatinine m easurement (mass/volume)on 08-30-2021 Creatinine [Mass/Vol] 1.02 mg/dL 0.70-1.[address] [facility] Work Phone: Comment on above: The validity of the calculated GFR & GFRAA in patients over 70 years has not been determined. Clinical correlation is essential. Serum or plasma urea nitroge n measurement (mass/volume)on 08-30-2021 Urea nitrogen [Mass/Vol] 19 mg/dL 7-18 [facility] Work Phone: Thin prep Papanicolaou smear with manual screeningon 08-30-2021 Thin prep Papanicolaou smear with manual screening 15 U/L 15-37 [facility] Work Phone: Thin prep Papanicolaou smear with manual screening 6 5-15 [facility] Work Phone: Office Visit: Spine Visit- R sided low back painon 01-24-2017 Documentation of current medications (procedure) Done Invalid Interpretation Code [facility] Work Phone: Office Visit: Spine Visit- R sided low back painon 01-10-2017 Documentation of current medications (procedure) Done Invalid Interpretation Code [facility] Work Phone: Protein mass conc Done [facility] Work Phone: Office Visit: Spine Visit- R sided low back painon 01-05-2017 Documentation of current medications (procedure) Done Invalid Interpretation Code [facility] Work Phone: Office Visit: Spine Visit- R sided low back painon 01-04-2017 Protein mass conc Done [facility] Work Phone: Office Visit: Spine Visit- R sided low back painon 01-02-2017 Documentation of current medications (procedure) Done Invalid Interpretation Code [facility] Work Phone: Office Visit: Spine Visit- R sided low back painon 12-28-2016 Documentation of current medications (procedure) Done Invalid Interpretation Code [facility] Work Phone: Protein mass conc Done [facility] Work Phone: Office Visit: Spine Visit- N EWon 12-27-2016 Protein mass conc Done [facility] Work Phone: Tobacco smoking status NHIS Never Invalid Interpretation Code [facility] Work Phone: Tobacco smoking status NHIS Former smoker [facility] Work Phone: Tobacco use CP Former smoker Invalid Interpretation Code [facility] Work Phone: Vital Signs Date Time Vital Sign Value Performing Clinician Facility 07-29-2024 13:42-0400 Body height 175.[address] Ramiro Tafoya MD Work Phone: [facility] 07-29-2024 13:42-0400 Body mass index (BMI) [Ratio] 29.7 kg/m2 Dr. Ramiro Tafoya MD Work Phone: [facility] 07-29-2024 13:42-0400 Body temperature 97.4 [degF] Dr. Ramiro Tafoya MD Work Phone: [phone] [place] [address] 07-29-2024 13:42-0400 Body weight 91.[address] Ramiro Tafoya MD Work Phone: [facility] 07-29-2024 13:42-0400 Diastolic blood pressure 79 mm[Hg] Dr. Ramiro Tafoya MD Work Phone: [facility] 07-29-2024 13:42-0400 Heart rate 65 /min Dr. Ramiro Tafoya MD Work Phone: [facility] 07-29-2024 13:42-0400 Respiratory rate 18 /min Dr. Ramiro Tafoya MD Work Phone: [facility] 07-29-2024 13:42-0400 SaO2% (BldA) [Mass fraction] 97 % Dr. Ramiro Tafoya MD Work Phone: [facility] 07-29-2024 13:42-0400 Systolic blood pressure 152 mm[Hg] Dr. Ramiro Tafoya MD Work Phone: [facility] 12-27-2022 09:55-0400 Diastolic blood pressure 106 mm[Hg] [facility] 12-27-2022 09:55-0400 Heart rate 58 /min [facility] 12-27-2022 09:55-0400 Respiratory rate 18 /min [facility] 12-27-2022 09:55-0400 SaO2% (BldA) [Mass fraction] 96 % [facility] 12-27-2022 09:55-0400 Systolic blood pressure 145 mm[Hg] [facility] 12-27-2022 06:49-0400 Body height 177.8 cm [facility] 12-27-2022 06:49-0400 Body mass index (BMI) [Ratio] 27.7 kg/m2 [facility] 12-27-2022 06:49-0400 Body temperature 97.1 [degF] [facility] 12-27-2022 06:49-0400 Body weight 87.6 kg [facility] 12-27-2016 08:15-0400 BMI (Body Mass Index) 25.99 kg/m2 Arleen Mediakraft Türkiyesi DC [facility] Work Phone: 12-27-2016 08:15-0400 Height 175.26 cm Arleen Mediakraft Türkiyesi DC [facility] Work Phone: 12-27-2016 08:15-0400 Pulse (Heart Rate) 80 /min Arleen Dossi DC [facility] Work Phone: 12-27-2016 08:15-0400 Respiratory Rate 18 /min Arleen Dossi DC [facility] Work Phone: 12-27-2016 08:15-0400 Weight 79.83 kg Arleen Mediakraft Türkiyesi DC [facility] Work Phone: Encounters Encounter Date Encounter Type Care Provider Facility Start: 09-12-2024 End: 09-12-2024 ambulatory Ramiro Tafoya Facility:[facility] Start: 07-29-2024 End: 07-29-2024 Emergency department patient visit Dr. Ramiro Tafoya MD Work Phone: -Emergency Department Work Phone: Start: 06-28-2024 End: 06-28-[address] ERIN TAFOYA MD Facility: Start: 06-21-2024 End: 06-21-2024 ambulatory MADHU SPENCE Facility:[facility] Start: 06-21-2024 End: 06-21-2024 Patient encounter procedure MADHU HE STRATEGY PLANNING CONSULTANT-RAIL SETTER [facility] Start: 03-18-2024 End: 03-18-2024 ambulatory Ramiro Tafoya Facility:[facility] Start: 09-11-2023 End: 09-11-2023 ambulatory [facility] Work Phone: Start: 09-11-2023 End: 09-11-2023 Patient encounter procedure [facility]-Laboratory, Phy Office 3rd Flr Start: 06-08-2023 End: 06-09-2023 ambulatory DANIEL DOWLING Facility:[facility] Start: 06-08-2023 End: 06-08-2023 Patient encounter procedure DANIEL DOWLING MD [facility] Start: 03-15-2023 End: 03-15-2023 ambulatory [facility] Work Phone: Start: 03-15-2023 End: 03-15-2023 [facility] Start: 12-27-2022 End: 12-27-2022 Emergency department patient visit [facility]-Emergency Department Work Phone: Start: 09-08-2022 End: 09-08-2022 ambulatory [facility] Work Phone: Start: 09-08-2022 End: 09-08-2022 Patient encounter procedure [facility] Start: 04-26-2022 End: 04-26-2022 Patient encounter procedure ANTONIO GLENDAJIMMY STRATEGY PLANNING CONSULTANT-RAIL SETTER [facility] Start: 08-30-2021 End: 08-30-2021 [facility] Procedures Date Procedure Procedure Detail Performing Clinician Start: 07-29-2024 Plain X-ray of shoulder Dr. Ramiro Tafoya MD Work Phone: Start: 12-27-2022 CT of face Start: 01-24-2017 End: 01-24-2017 Chiropractic manipulation Arleen Cortez Dossi DC Work Phone: Start: 01-10-2017 End: 01-10-2017 Chiropractic manipulation Arleen Cortez Dossi DC Work Phone: Start: 01-05-2017 End: 01-05-2017 Chiropractic manipulation Arleen Cortez Dossi DC Work Phone: Start: 01-04-2017 End: 01-04-2017 Chiropractic manipulation Arleen Cortez Dossi DC Work Phone: Start: 01-02-2017 End: 01-02-2017 Chiropractic manipulation Arleen Cortez Dossi DC Work Phone: Start: 12-28-2016 End: 12-29-2016 Chiropractic manipulation Arleen Cortez Dossi DC Work Phone: Start: 12-28-2016 End: 12-29-2016 Electric stimulation therapy Arleen Cortez Dossi DC Work Phone: Start: 05-22-2012 Cornel SOLIS STRATEGY PLANNING CONSULTANT-RAIL SETTER Surgery (qualifier value) JOSEF RODRIGUEZ STRATEGY PLANNING CONSULTANT-RAIL SETTER Comment on above: Left foot surgery- u nable to say what kind, but is able to say a plate was placed Plan of Treatment Date Care Activity Detail Author Start: 07-29-2024 [facility] Start: 01-24-2017 End: 01-24-2017 Appointment Appointment [facility] Work Phone: Start: 01-10-2017 End: 01-10-2017 Appointment Appointment [facility] Work Phone: Start: 01-10-2017 End: 01-10-2017 Follow up Appt 2x/Month Follow up Appt 2x/Month [facility] Work Phone: Start: 01-05-2017 End: 01-05-2017 Appointment Appointment [facility] Work Phone: Start: 01-05-2017 End: 01-05-2017 Follow up Appt 2x/week Follow up Appt 2x/week [facility] Work Phone: Start: 01-04-2017 End: 01-04-2017 Appointment Appointment [facility] Work Phone: Start: 01-04-2017 End: 01-04-2017 Follow up Appt 3x/week Follow up Appt 3x/week [facility] Work Phone: Start: 01-02-2017 End: 01-02-2017 Appointment Appointment [facility] Work Phone: Start: 01-02-2017 End: 01-02-2017 Follow up Appt 3x/week Follow up Appt 3x/week [facility] Work Phone: Start: 12-28-2016 End: 12-28-2016 Appointment Appointment [facility] Work Phone: Start: 12-28-2016 End: 12-29-2016 Follow up Appt 3x/week Follow up Appt 3x/week [facility] Work Phone: Start: 12-27-2016 End: 12-27-2016 Appointment Appointment [facility] Work Phone: Start: 12-27-2016 End: 12-27-2016 Follow up Appt 3x/week Follow up Appt 3x/week [facility] Work Phone: Patient Education [facility] Work Phone: Patient referral [facility] Work Phone: Immunizations Immunization Date Immunization Notes Care Provider Fa cility 08-18-2020 Covid (Pfizer) [facility] 07-28-2020 Covid (Pfizer) [facility] Payers Date Payer Category Payer Medicare [id number] 2024 Private Health Insurance [id number] 2024 Self-pay [id number] 2016 Unknown [id number] 2011 Medicare [id number] 1945 Unknown [id number] [id number] 1945 Unknown [id number] 1945 Unknown [id number] Unknown [id number] [id number] [id number] Unknown [id number] [id number] [id number] Unknown [id number] [id number] [id number] Social History Date Type Detail Facility Start: 07-20-2016 End: 12-27-2022 Tobacco smoking status VAIS Unknown if ever smoked [facility] Start: 1945 Sex Assigned At Male A [facility] Start: 05-19-2021 End: 07-29-2024 Tobacco smoking status Ex-smoker (finding) [facility] Sexual Orientation [facility] Start: 03-23-2018 End: 07-29-2024 Sex Male (finding) [facility] Clinical Notes 12-27-2022 to 07-29-2024 Note Date & Type Note Facility 07-29-2024 Radiology Diagnostic study note [facility] Imaging Services [address], [place] [id number] Shoulder min 2 Views MR#: [id number] Acct: [id number] Name: NABOR HECK Rep #: [id number] : 1945 M 79 From: Harriett Galloway MD PCP: Dr. Ramiro Tafoya MD Status: REG E R Study:Shoulder min 2 Views Date of Exam: 07/29/24 Exam# [id number] Ordering Dr: Rei Galloway DO EXAM: XR Left Shoulder Complete, 2 or More Views CLINICAL INDICATION: TECHNIQUE: Two or more views of the left shoulder. COMPARISON: No relevant prior studies available. FINDINGS: BONES/JOINTS: Mild degenerative change of the acromioclavicular and glenohumeral joints. No acute fracture. No dislocation. SOFT TISSUES: Soft tissue swelling. RAD/Shoulder min 2 Views IMPRESSION: Degenerative changes as above. Reading Location: [facility] CC: Dr. Ramiro Tafoya MD; Dr. Rei Galloway DO ~ [employer] Drawer: Signed [facility] 12-27-2022 Hospital Discharge instructions Additional Instructions Go directly to Dr. Gonzalez's office and she will see you this morning for further evaluation and treatment [facility] Work Phone: Evaluation + Plan note Future Appointments Appointment Date:05/19/2022 02:00:00 PM Scheduled Provider:DANIEL DOWLING MD Location:[facility] Appointment Type:[facility]M [facility]C OV Follow Up [facility] Evaluation + Plan note Future Appointments Appointment Date:06/28/2023 02:00:00 PM Scheduled Provider:MADHU HE Location:[facility] Appointment Type:[facility]M ONC OV Follow Up [facility] Evaluation + Plan note Future Appointments Appointment Date:06/28/2024 01:30:00 PM Scheduled Provider:RADHA DUNCAN DO Location:[facility] Appointment Type:[facility]M ONC OV Follow Up [facility] Evaluation note No assessment inform ation available [facility] Work Phone: Hospital course Narrative No data available for this section [facility] Discharge instructions No data available for this section [facility] Discharge instructions Additional Instructions X-ray negative. Continue Tylenol up to 1 g every 6 hours as needed. Follow-up with your doctor. [facility] Work Phone: Progress note No data available for this section [facility] Reason for referral (narrative) No reason for referral information available [facility] Work Phone: Advance Directives No Advanced Directives Records Found Advance Directive Response Recorded Date/ Time Advance Directives Yes June 24, 2016 1:22pm Living Will Yes July 20, 2016 11:23am Power of Sales Support Technician Yes July 20 11:23am Advance Directive Response Recorded Date/ Time Name of Medical Power of Sales Support Technician leonardo December 27, 2022 6:53am Advance Directives Yes June 24, 2016 1:22pm Living Will Yes December 27, 2022 6:53am Power of Sales Support Technician Yes December 27 6:53am Advance Directive Response Recorded Date/ Time Advance Directives Yes June 24, 2016 1:22pm Living Will Yes December 27, 2022 6:53am Power of Sales Support Technician Yes December 27 6:53am Advance Directive Response Recorded Date/ Time Living Will No July 29, 2024 2:40pm Power of Sales Support Technician No July 29 2:40pm Advance Directives Yes June 24, 2016 1:22pm Chief Complaint and Reason for Visit Chief Complaint allergic reaction, e ye redness Chief Complaint Admit Date fall, shoulder injury July 29, 2024 1 :39pm Summary Purpose Family History No Family History Records Found No data available for this section No data available for this section No Family History Records FoundNo Family History Records FoundNo Family History Records Found Additional Source Comments Goals (unrecognized section and content) Goals may be documented in a n alternate section No data available for this sectionGoals may be documented in an alternate sectionGoals may be documented in an alternate sectionGoals may be documented in an alternate section No data available for this sectionGoals may be documented in an alternate section No data available for this sectionGoals may be documented in an alternate section Care Team (unrecognized sect ion and content) Care Team Personnel Name: ERIN TAFOYA MD Member Role: Primary Care Physician Address: Address: [facility] [address] [place] [address]- Care Team Related Persons Name: LEONARDO HECK Care Teams (unrecognized sec tion and content) Team Status: Active Member Role Status Dates Dr. Ramiro Tafoya MD Family Provider Active Dr. Ramiro Tafoya MD Primary Care Provider Active Team Status: Inactive Member Role Status Dates Dr. Ramiro Tafoya MD Primary Care Provider, Attending Provider Active Team Status: Inactive Member Role Status Dates Dr. Ramiro Tafoya MD Primary Care Provider Active Dr. Candy Haywood DO Emergency Provider Active Team Status: Inactive Member Role Status Dates Dr. Ramiro Tafoya MD Primary Care Provider Active Dr. Candy Haywood DO Attending Provider, Emergency Pro vider Active Team Status: Active Member Role Status Dates Dr. Ramiro Tafoya MD Primary Care Provider Active Team Status: Inactive Member Role Status Dates Dr. Ramiro Tafoya MD Primary Care Provider Active Start: July 29, 2024 End: July 29, 2024 Dr. Rei Galloway DO Referring Provider Active Start : July 29, 2024 End: July 29, 2024 Dr. Rei Galloway DO Emergency Provider Active Start : July 29, 2024 End: July 29, 2024 (unrecognized sect ion and content) No Status Records FoundNo Status Records FoundNo Status Records FoundNo Status Records Found INFORMATION SOURCE (unrecogn ized section and content) DATE CREATED AUTHOR 06/09/2023 [facility] (MD) DATE CREATED AUTHOR AUTHOR'S ORGANIZ ATION 06/23/2024 [facility] DATE CREATED AUTHOR AUTHOR'S ORGANIZ ATION 07/16/2024 [facility] DATE CREATED AUTHOR AUTHOR'S ORGANIZ ATION 09/23/2024 [facility] FOR RECORDS PERTAINING TO PATIENTS WHO ARE OR HAVE BEEN ENROLLED IN A CHEMICAL DEPENDENCY/SUBSTANCEABUSE PROGRAM, SOME INFORMATION MAY BE OMITTED. This clinical summary was aggregated from multiple sources. Caution should be exercised in using it in the provision of clinical care. This summary normalizes information from multiple sources, and as a consequence, information in this document may materially change the coding, format and clinical context of patient data. In addition, data may be omitted in some cases. CLINICAL DECISIONS SHOULD BE BASED ON THE PRIMARY CLINICAL RECORDS. [facility] [employer] [facility]. provides no warranty or guarantee of the accuracy or completeness of information in this document.
== END | disposition home or self-care (01) ==
LOC: POLAB3 16:01
PROVIDERS: PCP Family Medicine Geriatric Medicine; Visit Provider Family Medicine Geriatric Medicine
DX: R68.83 Chills (without fever) (principal)
CPT/HCPCS: 87631

== ENCOUNTER 2025-02-01 08:29 | Emergency (ER) | payer MEDICARE, OTHER, SELFPAY ==
[2025-02-01] VITALS (13 sets, daily range): BP systolic 61–134; BP diastolic 51–77; PULSE 50–65; RESP 10–20; TEMP 35.7–36.5; O2SAT 97–99; BMI 28.1
--- NOTE | 2025-02-01 08:33 | EKG12_ITS ---
Test Reason : REPEAT Blood Pressure : */* mmHG Vent. Rate : 50 BPM Atrial Rate : 50 BPM P-R Int : 156 ms QRS Dur : 94 ms QT Int : 496 ms P-R-T Axes : -15 -31 -31 degrees QTcB Int : 452 ms Sinus bradycardia Left axis deviation Nonspecific T wave abnormality Abnormal ECG Confirmed by Jarvis Moreno ([id number]), material expeditor SHORTY ESCALERA ([id number]) on 02/03/2025 1:13:57 PM Referred By: Confirmed By: Jarvis Moreno
--- NOTE | 2025-02-01 08:42 | CT_ITS ---
PROCEDURE: CTA ABD/PELVIS W/WO CONTRAST 02/01/2025 REASON FOR EXAM: GI BLEED TECHNIQUE: Procedure Code: [id number] Modality: CT Procedure: CTA ABD/PELVIS W/WO CONTRAST Multiplanar Sagittal and Coronal images were obtained. 3D and or MIPS post processing was performed CONTRAST: Isovue 370 VOLUME: 100 mL One or more dose reduction techniques were used (e.g., Automated exposure control, adjustment of the mA and/or kV according to patient size, use of iterative reconstruction technique). RADIATION DOSE SUMMARY: CTDlvol: 65 mGy DLP: 1253 mGycm COMPARISON: November 2019. FINDINGS: Lung bases: Mild emphysematous changes ABDOMEN Liver: Negative. Biliary system: Negative. Negative for intrahepatic or extrahepatic ductal dilatation. Gallbladder: Removed. Scratch Spleen: Negative. Pancreas: Negative. Adrenals: Negative. Kidneys: Exophytic cyst right kidney. Negative for kidney stones, or masses. Bowel: Diffuse diverticulosis. Focal area of inflammation and active bleeding in the transverse colon. Negative for small or large-bowel obstruction. Appendix: Negative Vasculature: As described above active bleeding noted into the transverse colon and area of diverticulosis. Mild atherosclerotic vascular calcifications of the abdominal aorta and its branches. Peritoneum / Retroperitoneum: Negative. PELVIS Lymph nodes: Negative for inguinal or iliac adenopathy. Bladder: Reproductive Organs: Bones and Soft Tissues: Age appropriate degenerative changes of the lumbar spine hips and pelvis. CT/CTA Abd/Pelvis W/WO Contrast IMPRESSION: Acute active extravasation moderate-size in the transverse colon likely from a diverticular bleed. Findings discussed with referring clinician, today at 0945 hours Reading Location: [id number]
--- NOTE | 2025-02-01 08:47 | EX.ED.DYSGE1 ---
HPI History of Present Illness Chief Complaint: Syncope Narrative Narrative: Patient is a 79-year-old male with past medical history of DVT on Eliquis who presents to the emergency department with a chief complaint of dark tarry stool as well as passing clots and passing out. Patient states that he this morning woke up and started having many bowel movements with passing clots and noted that this was black. He states that this has never happened before. He states that he then got in the shower and felt like he was going to pass out therefore he sat down and noted that he woke up shortly after this. He states that he did not fall he did not hit his head he simply sat down before passing out. The patient notes that he does have a history of blood clots in his leg after he ankle surgery back in 2006 for which a IVC filter was placed and he states remains in place. He also states that he had blood clots in his bilateral lower extremities back in 2017 as well. [facility] Medical History Hx of cataract DVT (deep venous thrombosis) Home Medications ?Medication ?Instructions ?Recorded ?Last Taken ?Type apixaban 5 mg tablet (Eliquis) 10 mg PO DAILY 12/27/22 Unknown History valsartan 160 mg tablet 160 mg PO DAILY 12/27/22 Unknown History albuterol sulfate 90 mcg/actuation 2 puff inhalation Q4H PRN PRN 02/01/25 Unknown History aerosol inhaler shortness of breath or wheezing propranolol 10 mg tablet 10 mg PO BID 02/01/25 Unknown History verapamil 240 mg tablet,extended 240 mg PO BID 02/01/25 Unknown History release Allergy/AdvReac Type Severity Reaction Status Date / Time banana Allergy Unknown Verified 02/01/25 08:33 cashew nut (cashews) Allergy PT UNSURE Verified 02/01/25 08:33 OF REACTION chocolate flavor Allergy Unknown Verified 02/01/25 08:33 Environmental Allergies: Allergy NEEDS Verified 02/01/25 08:33 Uncoded FOLLOW-UP epoxy resin Allergy PT UNSURE Verified 02/01/25 08:33 OF REACTION mold Allergy Unknown Verified 02/01/25 08:33 ragweed pollen Allergy Unknown Verified 02/01/25 08:33 balsam enrique AdvReac Unknown Verified 02/01/25 08:33 diazolidinyl urea AdvReac Unknown Verified 02/01/25 08:33 Surgical History Hx of cholecystectomy Social History Smoking Status: Former smoker ROS ROS ED ROS Narrative Constitutional: Denies any fevers, chills, headaches Eyes: Denies double vision Cardiovascular: Denies chest pain Respiratory: Denies shortness of breath Abdomen: Complains of dark tarry stool as noted above with passing clots denies abdominal pain : Denies any urinary symptoms Neurological: Denies numbness, weakness, tingling Musculoskeletal: Denies back pain Skin: Denies rashes or lesions EXAM Physical Exam Narrative Exam Narrative: General: Patient was lying in bed rest comfortably did not appear to be acute distress Head: Atraumatic, normocephalic Eyes: PERRL bilaterally, EOMI bilaterally, no conjunctival injection noted Neck: Soft, supple, trachea midline Cardiovascular: Regular rate and rhythm no murmurs gallops rubs noted Respiratory: Clear to auscultation bilaterally Abdomen: Soft, nondistended, diffuse tenderness to palpation no rebound or guarding on exam Rectal: Patient has dark red blood per rectum noted with large clot removed Extremities: +5/5 strength noted in the bilateral upper and lower extremities, radial pulses +2/4 in the bilateral extremities Neurological: Patient following commands knew that he was at [facility] year is 2024 Skin: Warm, dry, intact no rashes or lesions noted Const Vital Signs: 02/01/25 08:30 02/01/25 08:35 02/01/25 09:33 Temperature 97.7 F L Temperature Source Oral Pulse Rate 65 Respiratory Rate 20 H Blood Pressure 115/77 67/52 L Blood Pressure Mean 89 57 Blood Pressure Source Pulse Ox 97 97 Oxygen Delivery Method Room Air Room Air 02/01/25 09:39 02/01/25 09:41 02/01/25 09:57 Temperature 97.5 F L Temperature Source Oral Pulse Rate 50 L 58 L 56 L Respiratory Rate 11 L Blood Pressure 61/51 L 87/66 L 112/69 Blood Pressure Mean 54 73 83 Blood Pressure Source Monitor Pulse Ox 99 Oxygen Delivery Method MDM MDM MDM Narrative Medical decision making narrative: Patient is a 79-year-old male who presented to the emergency department the chief complaint of dark tarry stool with concern for upper GI bleed on Eliquis. On the differential diagnose includes but not limited to upper GI bleed, near syncope, vasovagal syncope, cardiac arrhythmia. Once workup is obtained reviewed he will be reevaluated. Patient will given IV fluids. Patient CBC reviewed showed a leukocytosis of 11,000, hemoglobin 13.2, platelet count of 211. Patient INR of 1.4, PT of 17.6 chemistries are pending. Patient chest x-ray reviewed by myself by radiology showed no acute cardiopulmonary processes. Patient CTA abdomen pelvis with IV contrast was reviewed and radiology notified me that he has acute active extravasation moderate size in the transverse colon likely from a diverticular bleed. Nursing notified me that the patient had a syncopal episode while lying in bed and was hypotensive repeat EKG was ordered. Trauma blood 2 units ordered. Ordered 8 units of packed red blood cells here in the emergency department FFP and Kcentra to reverse his Eliquis. Discussed case with senior mainframe programmer analyst Dr. Beltran who is recommending transfer. Reached out to [facility] And critical care transport team to [facility] patient. 10:05 AM discussed case with Dr. Stanton from [facility] Intensive care unit who accept patient for transfer. [facility] will be on their way to transport the patient. Updated the patient is agreeable spinal cord concerns answered at bedside. Ordered 2 g of calcium gluconate as well as 3 units of FFP. Images were pushed to [facility]. Critical care time 67 minutes Lab Data Labs: Laboratory Results - last 24 hr 02/01/25 02/01/25 02/01/25 08:40 08:43 09:35 WBC 11.6 H RBC 4.20 L Hgb 13.2 Hct 39.7 L MCV 94.5 H MCH 31.4 MCHC 33.2 RDW Std Deviation 46.1 H RDW Coeff of Enrrique 13.4 Plt Count 211 MPV 10.2 Immature Gran % (Auto) 0.400 Neut % (Auto) 70.1 H Lymph % (Auto) 16.0 L [place] % (Auto) 10.5 H Eos % (Auto) 2.5 Baso % (Auto) 0.5 Absolute Neuts (auto) 8.1 H Absolute Lymphs (auto) 1.85 Nucleated RBC % 0 PT 17.6 H INR 1.4 APTT 28.2 POC Glucose 107 H Blood Type O POSITIVE Antibody Screen NEGATIVE Crossmatch See Detail Radiography Diagnostic Testing: Clinical Impression(s) from Imaging Studies Abdomen/Pelvis CTA 02/01/25 08:42 IMPRESSION: Acute active extravasation moderate-size in the transverse colon likely from a diverticular bleed. Findings discussed with referring clinician, today at 0945 hours Reading Location: [facility] Chest X-Ray 02/01/25 09:10 IMPRESSION: Negative for acute cardiopulmonary disease Reading Location: [id number] Discharge Plan Triage Chief Complaint: Syncope ED Provider: Jacobo Valdez Dx/Rx/DC Orders Clinical Impression: GI bleed, History of deep vein thrombosis, Presence of IVC filter, Hemorrhagic shock Prescriptions: No Action valsartan 160 mg tablet 160 mg PO DAILY Eliquis 5 mg tablet 10 mg PO DAILY Patient Comments: TAKE 1 TABLET BY MOUTH TWICE A DAY albuterol sulfate 90 mcg/actuation HFA aerosol inhaler 2 puff inhalation Q4H PRN PRN (Reason: shortness of breath or wheezing) propranolol 10 mg tablet 10 mg PO BID verapamil 240 mg tablet extended release 240 mg PO BID Primary Care Provider: Ramiro Driver Chi Referrals: Ramiro Driver Chi, MD [Primary Care Provider] - Print Language: Micronesian Disposition Disposition: DC/Tx to Another Type of HCF
[2025-02-01 08:48] LABS: Hematocrit 39.7 % (40-54); Hemoglobin 13.2 g/dL (13.0-16.5); Immature Granulocytes Count 0.050 X10^3/uL (0.0-0.0); Mean Corp Hgb Conc 33.2 g/dL (32-36); Mean Corpuscular Volume 94.5 fL (80-94); Mean Platelet Vol. 10.2 fl (6.2-12.0); NRBC Flagged by Analyzer 0 % (0-5); Platelet Count 211 K/mm3 (150-450); RBC Distribution Width CV 13.4 % (11.6-14.6); RBC Distribution Width SD 46.1 fl (35.1-43.9); Red Blood Count 4.20 M/mm3 (4.6-6.2); White Blood Count 11.6 K/mm3 (4.4-11.0)
[2025-02-01] MEDS: 0.9% Normal Saline (1000mL) 1,000 ML 999 ML IV ×2 (08:48→10:28)
[2025-02-01 09:03] LABS: Prothrombin Time (Protime)PT. 17.6 SECONDS (11.7-14.9)
[2025-02-01 09:04] LABS: Partial Thromboplast Time 28.2 Seconds (24.1-36.2)
--- NOTE | 2025-02-01 09:10 | RAD_ITS ---
PROCEDURE: CHEST PA AND LATERAL 02/01/2025 REASON FOR EXAM: CHEST PAIN TECHNIQUE: Procedure Code: RADCXR Modality: DX Procedure: CHEST PA AND LATERAL COMPARISON: December 2024 FINDINGS: Hardware and support lines: None. Heart: Mild cardiomegaly. Lungs: Negative for infiltrates, or pulmonary edema. Pleura: No pleural thickening. No pleural effusion. Mediastinum and aorta: Negative for hilar adenopathy. Mildly tortuous thoracic aorta. Bones: Mild degenerative changes of the shoulders. Other: Hiatal hernia. Remainder of the exam negative. RAD/Chest PA and Lateral IMPRESSION: Negative for acute cardiopulmonary disease Reading Location: [id number]
[2025-02-01] MEDS: Pantoprazole Sodium 40 MG in 0.9% Normal Saline (100mL MB+) 100 ML 300 MG IV (09:16)
--- OUTSIDE RECORDS SUMMARY | 2025-02-01 09:26 | XMS RPT_ITS | CCD ---
Author Organization [facility] Care Team Providers Care Acid Supervisor Name Role Phone Dossi Arleen VILLEGAS Unavailable MICHELET JACOBO, DR KHAN Primary Care Physician DANIEL DOWLING Attending Unavailable MICHELET JACOBO, DR KHAN Primary Care Unavailable NERI SPENCE, MADHU Attending Mitchell TAFOYA MD, DR KHAN Primary Care Unavailable MICHELET JACOBO, DR KHAN Primary Care Unavailable RADHA DUNCAN DO Attending Unavailable Michelet JACOBO, Dr. Ramiro Coe Primary Care Provider Dr. Rei Galloway DO Referring Provider [phone] Rei Galloway DO Emergency Provider Michelet JACOBO, Dr. Ramiro Coe Primary Care Provider Michelet JACOBO, Dr. Ramiro Coe Attending Provider Dr. Ramiro Tafoya MD, Chi Referring Provider [phone] MicheletRamiro vazquez Chi Primary Care Unavailable Michelet, Ramiro Chi Referring Unavailable Michelet, Ramiro Chi Attending Unavailable Rei Galloway Referring Unavailable Rei Galloway Attending Unavailable Michelet, Ramiro Chi Primary Care Unavailable Michelet, Ramiro Chi Referring Unavailable Michelet, Ramiro Chi Attending Unavailable Michelet, Ramiro Chi Primary Care Unavailable Michelet, Ramiro Chi Referring Unavailable Michelet, Ramiro Chi Attending Unavailable Michelet, Ramiro Chi Primary Care Unavailable Allergies Allergy Classification Reported Allergen(s) Allergy Type Date of Onset Reaction(s) Facility (12 sources) [facility] drug allergy 12-28-19 17 [facility] Work Phone: (8 sources) Banana Extract Drug Allergy 07-21-19 17 [facility] (9 sources) Chocolate; Translations: [chocolate flavor] Allergy to substance 07-21-19 Unknown [facility] (8 sources) diazolidinylurea Drug Allergy 07-21-19 Unknown [facility] (8 sources) Mold Extract Drug Allergy 07-21-19 Unknown [facility] (8 sources) Ecuadorean balsam Drug Allergy 07-21-19 Unknown [facility] (9 sources) Ragweed pollen; Translations: [ragweed pollen] Allergy to substance 07-21-19 Unknown [facility] (3 sources) PHENYLENEDIAMINE Propensity to adverse reactions 07-21-19 Unknown [facility] (3 sources) alteplase; Translations: [alteplase] Drug Allergy [facility] (3 sources) unknown antibiotic 1 Drug allergy [facility] Comment on above: Allergic to an unkno wn antibiotic per H&P of Dr. Jen Herrmann 181807/20/2016, which was transcribed 210007/20/2016, 210607/20/2016JO (6 sources) Environmental Allergies: Uncoded; Translations: [Environmental Allergies: Uncoded] Allergy to substance 01-18-20 23 NEEDS FOLLOW-UP [facility] Comment on above: phenylenediamine (3 sources) cashew nut allergenic extract Drug Allergy 07-30-19 25 PT UNSURE OF REACTION [facility] (4 sources) epoxy resin; Translations: [epoxy resin] Allergy to substance 07-30-19 25 PT UNSURE OF REACTION [facility] (1 source) Banana Extract Drug Allergy 07-30-19 25 [facility] Repository (1 source) cashew nut allergenic extract Drug Allergy 07-30-19 25 [facility] Repository (1 source) diazolidinylurea Drug Allergy 07-30-19 25 [facility] Rep[facility] (1 source) Mold Extract Drug Allergy 07-30-19 25 [facility] Repository (1 source) Ecuadorean balsam Drug Allergy 07-30-19 25 [facility] Repository Medications Current Medications Medication Drug Class(es) Dates Sig (Normalized) Sig (Original) apixaban 5 mg oral tablet (9 sources) Factor Xa Inhibitor Start: 04-08-2024 End: 11-04-2024 Eliquis 5 mg oral tablet Dose : 5 mg = 1 tab(s), Oral, BID, # 60 tab(s), 6 Refill(s), Pharmacy: [facility]/pharmacy #[id number], 177, cm, 06/28/23 14:07:00 EST, Height, 83.1, [...] BID, # 180 tab(s), 1 Refill(s), [id number], 177, cm, 05/19/22 15:26:00 EST, Height, [...] Status: Ordered clindamycin 300 mg oral capsule (6 sources) Lincosamide Antibacterial Start: 12-27-2022 take 1 capsule by mouth every six hours Clindamycin Hcl (Cleocin Hcl) 300 mg capsule Active 300 mg PO EVERY 6 HOURS 40 0 December 27, 2022 12:00am dabigatran etexilate 150 mg oral capsule (20 sources) Start: 05-12-2022 Pradaxa 150 mg oral capsule Dose : 150 mg = 1 cap(s), Oral, BID, # 60 cap(s), 11 Refill(s), Pharmacy: [facility]/pharmacy #[id number], 177, cm, 05/19/21 13:26:00 EST, Height, 85, kg, 05/19/21 13:26:00 EST, Dosing Weight Start Date: 05/12/22 Status: Ordered Start: 05-19-2021 Pradaxa 150 mg oral capsule Dose : 150 mg = 1 cap(s), Oral, BID, # 60 cap(s), 11 Refill(s), Pharmacy: [facility]/pharmacy #[id number], 177, cm, 05/19/21 13:26:00 EST, Height, 85, kg, 05/19/21 13:26:00 EST, Dosing Weight Start Date: 05/19/21 Status: Ordered Start: 12-27-2016 PRADAXA 150 MG CAPS twice daily DABIGATRAN ETEXILATE MESYLATE [id number] Arleen Zambrano DC Start: 07-12-2016 End: 12-27-2022 [...] mouth once daily Dexlansoprazole (Dexilant) 60 MG Cap. Active 60 MG PO DAILY July 20, 2016 10:37am Vascepa (2 sources) Start: 05-19-2022 Vascepa gram(s) =, Oral, BID, 0 Refill(s) Start Date: 05/19/22 Status: Ordered Repeat number: 1 Start: 05-19-2022 Vascepa gram(s ) =, Oral, BID, 0 Refill(s) Start Date: 05/19/22 Status: Ordered levoFLOXacin 500 mg oral tablet (6 sources) Quinolone Antimicrobial Start: 12-27-2022 take 1 [...] Status: Ordered valsartan 160 mg oral tablet (9 sources) Angiotensin 2 Receptor Karlee Start: 05-19-2021 take 1 tablet by mouth once daily Valsartan 160 mg tablet Active 160 mg PO DAILY December 27, 2022 12:00am verapamil hydrochloride 240 mg extended release oral tablet (11 sources) Calcium Channel Karlee Start: 07-20-2016 take 1 tablet by mouth every hour, then take 1 tablet by mouth every twelve hours verapamil 240 mg/12 hours oral tablet, extended release Dose : 240 mg = 1 tab(s), Oral, q12h, # 60 tab(s), 0 Refill(s) Start Date: 07/20/16 Status: Ordered Quantity: 60.0 Unit: tab(s) Repeat number: 1 Start: 09-10-2014 take 1 capsule by mo uth twice daily Verapamil 240 MG capsule,ext rel. [...] Dexlansoprazole (Dexilant) 60 MG capsule,biphase delayed releas (6 sources) Start: 07-20-2016 End: 12-27-2022 take 1 [...] 100 MG TABS once daily LOSARTAN POTASSIUM [id number] Arleen Zambrano DC rosuvastatin calcium 5 mg oral tablet (12 sources) HMG-CoA Reductase Inhibitor Start: 12-27-2016 CRESTOR 5 MG TABS once daily at bedtime ROSUVASTATIN CALCIUM [id number] Arleen Zambrano DC traMADol hydrochloride 50 mg oral tablet (20 sources) Opioid Agonist Start: 07-12-2016 End: 12-27-2022 [...] MG CR-TABS twice daily TRANDOLAPRIL-VERAP JEOVANNY HCL [id number] Arleen Zambrano DC [id number] MMONIA (8 sources) Start: 12-27-2016 ACTIVE INJECTI ON KL-3 40-1 MG/ML-% KIT apply once daily as needed TRIAMCINOLONE-LIDO -AMMONIA [id number] Arleen Zambrano DC [id number] MMONIA (4 sources) Start: 12-27-2016 ACTIVE INJECTI ON KL-3 40-1 MG/ML-% KIT apply once daily as needed TRIAMCINOLONE-LIDO -AMMONIA [id number] Arleen Zambrano DC Problems Active Problems Problem Classification Problem Date Documented Da te Episodic/Chronic Blindness and vision defects (6 sources) Blurring of visual image; Translations: [Other visual disturbances] 12-27-2022 Episodic Coagulation and hemorrhagic disorders (3 sources) 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 Deficiency and other anemia (3 sources) Anemia 07-20-2016 Episodic Disorders of teeth and jaw (6 sources) Toothache; Translations: [Other specified disorders of teeth and supporting structures] 12-27-2022 Episodic Diverticulosis and diverticulitis (3 sources) Diverticulitis 07-20-2016 Chronic E Codes: Fall (3 sources) Fall; Translations: [Unspecified fall, initial encounter] 07-29-2024 Episodic Esophageal disorders (3 sources) Gastroesophageal reflux disease 07-20-2016 Chronic Essential hypertension (13 sources) Hypertensive disorder; Translations: [Essential (primary) hypertension] Onset: 7 12-27-2016 Chronic Gastrointestinal hemorrhage (3 sources) Melena 07-20-2016 Episodic Inflammation; infection of eye (except that caused by tuberculosis or sexually transmitteddisease) (6 sources) Conjunctivitis; Translations: [Unspecified conjunctivitis] 12-27-2022 Episodic Osteoarthritis (16 sources) Osteoarthritis; Translations: [Arthritis] Onset: 7 12-27-2016 Chronic Other aftercare (3 sources) Long-term current use of anticoagulant 03-12-2021 Episodic Other connective tissue disease (3 sources) Spasm 07-20-2016 Episodic Other gastrointestinal disorders (3 sources) Constipation 07-20-2016 Episodic Other lower respiratory disease (1 source) Other specified respiratory disorders; Translations: [Other specified respiratory disorders] Onset: 5 Episodic Other non-traumatic joint disorders (8 sources) [...] codes; unclassified (3 sources) Edema 07-20-2016 Episodic Residual codes; unclassified (1 source) Chills (without fever); Translations: [Chills (without fever)] Onset: 5 Episodic Screening and history of mental health and substance abuse codes (3 sources) Ex-smoker 03-12-2021 Episodic Spondylosis; intervertebral disc disorders; other back problems (12 sources) Degeneration of lumbar intervertebral disc; Translations: [Other intervertebral disc degeneration, lumbar region] Onset: 7 12-27-2016 Chronic Spondylosis; intervertebral disc disorders; other back problems (6 sources) Spinal stenosis of lumbar region; Translations: [Thoracic radiculopathy] 07-20-2016 Episodic Sprains and strains (3 sources) Shoulder strain; Translations: [Strain of unspecified muscle, [...] of circulatory system] Onset: 12-27-2016 12-27-2016 Episodic Other injuries and conditions due to external causes (1 source) Encounter for examination and observation following other accident; Translations: [Encounter for examination and observation following other accident] Onset: 08-07-2024 Episodic Results Test Name Value Interpretation Reference Range Facility Chest PA and Lateralon 01-16 Chest PA and Lateral [facility] Imaging Services [address] [place] [address] [id number] Chest PA and Lateral MR#: [id number] Acct: [id number] Name: NABOR HECK Rep #: [id number] : 1945 M 79 From: Sarahi Dougherty MD PCP: Dr. Ramiro Tafoya MD Status: REG CLI Study: Chest PA and Lateral Date of Exam: 01/16/25 Exam# [id number] Ordering Dr: Ramiro Tafoya MD PROCEDURE: CHEST PA AND LATERAL 01/16/2025 REASON FOR EXAM: WHEEZING/CONGESTION TECHNIQUE: CHEST PA AND LATERAL COMPARISON: None. FINDINGS: LUNGS AND PLEURA: The lungs are clear. No pleural effusion or pneumothorax. HEART AND MEDIASTINUM: The heart size and mediastinal contours are normal. BONES: No acute osseous abnormality. 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 An IVC filter is present at the L2 level. RAD/Chest PA and Lateral IMPRESSION: NO ACUTE FINDINGS. Reading Location: [id number] CC: Dr. Ramiro Tafoya MD Addiction Therapist: Signed Normal [facility] M100.678on 01-16-2025 M100.678 Pending SARS-CoV-2 (COVID 19) Negative INFLUENZA A Negative INFLUENZA B Negative RSV PCR Negative Normal [facility] Comment on above: Performed By: #### M 100.678 #### [facility] [address] [place], [address] CBC W/Diff, Automatedon 08-21 Absolute Lymph 1.88 X10 3/uL Normal 0.83-4.51 [facility] Comment on above: Performed By: #### L 506.1001, L501.9520, L500.4050, L100.0100 #### [facility] [address] [place], [address] Absolute Neut 4.3 X10 3/uL Normal 2.0-7.7 [facility] Comment on above: Performed By: #### L 506.1001, L501.9520, L500.4050, L100.0100 #### [facility] [address] [place], [address] Basophils/100 WBC (Bld) 0.5 % Normal 0-1 [facility] Comment on above: Performed By: #### L 506.1001, L501.9520, L500.4050, L100.0100 #### [facility] [address] [place], [address] Eosinophils/100 WBC (Bld) 2.3 % Normal 0-5 [facility] Comment on above: Performed By: #### L 506.1001, L501.9520, L500.4050, L100.0100 #### [facility] [address] [place], [address] Erythrocyte distribution width (RBC) [Ratio] 13.4 % Normal 11.6-14.6 [facility] Comment on above: Performed By: #### L 506.1001, L501.9520, L500.4050, L100.0100 #### [facility] [address] [place], [address] Hematocrit (Bld) [Volume fraction] 44.9 % Normal 40-54 [facility] Comment on above: Performed By: #### L 506.1001, L501.9520, L500.4050, L100.0100 #### [facility] [address] [place], [address] Hemoglobin (Bld) [Mass/Vol] 15.1 g/dL Normal 13.0-16.5 [facility] Comment on above: Performed By: #### L 506.1001, L501.9520, L500.4050, L100.0100 #### [facility] [address] [place], [address] IG% 0.400 Normal 0.0-0.9 [facility] Comment on above: Result Comment: IG% - Immature Granulocytes (promyelocytes, myelocytes and metamyelocytes) > 1% indicates that a LEFT SHIFT is Present. Performed By: #### L 506.1001, L501.9520, L500.4050, L100.0100 #### [facility] [address] [place], [address] Lymphocytes/100 WBC (Bld) 25.7 % Normal 19-41 [facility] Comment on above: Performed By: #### L 506.1001, L501.9520, L500.4050, L100.0100 #### [facility] [address] [place], [address] MCH (RBC) [Entitic mass] 32.3 pg High 27.0-32.0 [facility] Comment on above: Performed By: #### L 506.1001, L501.9520, L500.4050, L100.0100 #### [facility] [address] [place], [address] MCHC (RBC) [Mass/Vol] 33.6 g/dL Normal 32-36 [facility] Comment on above: Performed By: #### L 506.1001, L501.9520, L500.4050, L100.0100 #### [facility] [address] [place], [address] MCV (RBC) [Entitic vol] 96.1 fL High 80-94 [facility] Comment on above: Performed By: #### L 506.1001, L501.9520, L500.4050, L100.0100 #### [facility] [address] [place], [address] Monocytes/100 WBC (Bld) 12.6 % High 0-10 [facility] Comment on above: Performed By: #### L 506.1001, L501.9520, L500.4050, L100.0100 #### [facility] [address] [place], [address] Neutrophils/100 WBC (Bld) 58.5 % Normal 47-70 [facility] Comment on above: Performed By: #### L 506.1001, L501.9520, L500.4050, L100.0100 #### [facility] [address] [place], [address] Nucleated RBC (Bld) [#/Vol] 0 10*3/uL Normal 0-5 [facility] Comment on above: Performed By: #### L 506.1001, L501.9520, L500.4050, L100.0100 #### [facility] [address] [place], [address] Platelet mean volume (Bld) [Entitic vol] 10.4 fL Normal 6.2-12.0 [facility] Comment on above: Performed By: #### L 506.1001, L501.9520, L500.4050, L100.0100 #### [facility] [address] [place], [address] Platelets (Bld) [#/Vol] 196 10*3/uL Normal 150-450 [facility] Comment on above: Performed By: #### L 506.1001, L501.9520, L500.4050, L100.0100 #### [facility] [address] [place], [address] RBC (Bld) [#/Vol] 4.67 10*6/uL Normal 4.6-6.2 [facility] Comment on above: Performed By: #### L 506.1001, L501.9520, L500.4050, L100.0100 #### [facility] [address] [place], [address] RDW SD 47.7 fl High 35.1-43.9 [facility] Comment on above: Performed By: #### L 506.1001, L501.9520, L500.4050, L100.0100 #### [facility] [address] [place], [address] WBC (Bld) [#/Vol] 7.3 10*3/uL Normal 4.4-11.0 [facility] Comment on above: Performed By: #### L 506.1001, L501.9520, L500.4050, L100.0100 #### [facility] [address] [place], [address] [facility] Metabolic [facility] 09-12-2024 Albumin [Mass/Vol] 4.1 g/dL Normal 3.4-4.8 [facility] Comment on above: Performed By: #### L 506.1001, L501.9520, L500.4050, L100.0100 #### [facility] [address] [place], [address] Albumin/Globulin [Mass ratio] 1.6 {ratio} Normal 0.9-2.4 [facility] Comment on above: Performed By: #### L 506.1001, L501.9520, L500.4050, L100.0100 #### [facility] [address] [place], [address] ALK PHOS 71 U/L Normal 40-129 [facility] Comment on above: Performed By: #### L 506.1001, L501.9520, L500.4050, L100.0100 #### [facility] [address] [place], [address] ALT [Catalytic activity/Vol] 28 U/L Normal <=46 [facility] Comment on above: Performed By: #### L 506.1001, L501.9520, L500.4050, L100.0100 #### [facility] [address] [place], [address] AST [Catalytic activity/Vol] 27 U/L Normal <=37 [facility] Comment on above: Performed By: #### L 506.1001, L501.9520, L500.4050, L100.0100 #### [facility] [address] [place], [address] Bilirubin [Mass/Vol] 0.65 mg/dL Normal 0.00-1.30 [facility] Comment on above: Performed By: #### L 506.1001, L501.9520, L500.4050, L100.0100 #### [facility] [address] [place], [address] BUN/CRE 14.8 RATIO Normal 10-20 [facility] Comment on above: Performed By: #### L 506.1001, L501.9520, L500.4050, L100.0100 #### [facility] [address] [place], [address] Calcium [Mass/Vol] 9.0 mg/dL Normal 7.6-11.0 [facility] Comment on above: Performed By: #### L 506.1001, L501.9520, L500.4050, L100.0100 #### [facility] [address] [place], [address] Chloride [Moles/Vol] 107 mmol/L Normal 98-108 [facility] Comment on above: Performed By: #### L 506.1001, L501.9520, L500.4050, L100.0100 #### [facility] [address] [place], [address] CO2 [Moles/Vol] 21.1 mmol/L Normal 21.0-32.0 [facility] Comment on above: Performed By: #### L 506.1001, L501.9520, L500.4050, L100.0100 #### [facility] [address] [place], [address] Creatinine [Mass/Vol] 1.07 mg/dL Normal 0.70-1.20 [facility] Comment on above: Performed By: #### L 506.1001, L501.9520, L500.4050, L100.0100 #### [facility] [address] [place], [address] GAP 11 Normal 5-15 [facility] Comment on above: Performed By: #### L 506.1001, L501.9520, L500.4050, L100.0100 #### [facility] [address] [place], [address] GFR/1.73 sq M.predicted among non-blacks MDRD (S/P/Bld) [Vol rate/Area] 71 mL/min/{1.73_m2} Normal >60 [facility] Comment on above: Result Comment: mL/m in/1.73m2 CKD-EPI Creatinine Equation (2020) Performed By: #### L 506.1001, L501.9520, L500.4050, L100.0100 #### [facility] [address] [place], [address] Globulin (S) [Mass/Vol] 2.6 g/dL Normal 2.2-4.2 [facility] Comment on above: Performed By: #### L 506.1001, L501.9520, L500.4050, L100.0100 #### [facility] [address] [place], [address] Glucose [Mass/Vol] 101 mg/dL High 70-99 [facility] Comment on above: Performed By: #### L 506.1001, L501.9520, L500.4050, L100.0100 #### [facility] [address] [place], [address] Potassium [Moles/Vol] 4.0 mmol/L Normal 3.3-5.1 [facility] Comment on above: Performed By: #### L 506.1001, L501.9520, L500.4050, L100.0100 #### [facility] [address] [place], [address] Sodium [Moles/Vol] 139 mmol/L Normal 133-145 [facility] Comment on above: Performed By: #### L 506.1001, L501.9520, L500.4050, L100.0100 #### [facility] [address] [place], [address] T PROT 6.7 g/dL Normal 5.9-8.4 [facility] Comment on above: Performed By: #### L 506.1001, L501.9520, L500.4050, L100.0100 #### [facility] [address] [place], [address] Urea nitrogen [Mass/Vol] 16 mg/dL Normal 4-19 [facility] Comment on above: Performed By: #### L 506.1001, L501.9520, L500.4050, L100.0100 #### [facility] [address] [place], [address] Thyroid Stim Hormone (TSH)on 09-12-2024 TSH 1.050 uIU/mL Normal 0.300-4.200 [facility] Comment on above: Performed By: #### L 506.1001, L501.9520, L500.4050, L100.0100 #### [facility] [address] [place], [address] Vitamin D,25 Hydroxyon 09-12 Vitamin D 25-OH 23.7 ng/mL Low 30-100 [facility] Comment on above: Result Comment: Elsie min D Status Deficiency: <20 ng/mL (50nmol/L) Insufficiency: 20-30 ng/mL (50-75 nmol/L) Sufficiency: 30-100 ng/mL (75-250 nmol/L) Toxicity: >100 ng/mL (>250 nmol/L) Performed By: #### L 506.1001, L501.9520, L500.4050, L100.0100 #### [facility] [address] [place], [address] Emergency Department Summary on 07-29-2024 Emergency Department Summary [facility] Medical Records Department [address] [place] [address] Emergency Department Summary 07/29/24 MR#: [id number] Acct: [id number] Name: NABOR HECK Rep #: [id number] : 1945 79 From: Rei Goff PCP: Dr. Ramiro Tafoya MD Status:DEP ER Location: ED HPI History of Present Illness Chief Complaint: Fall Informant: patient Narrative Narrative: Ambidextrous male mechanical fall few hours ago in [employer]. Tripped when he hit his foot on a pew. Injury directed to the shoulder. No head injuries. No loss of conscious. No headache or neck pain. Pain to shoulder worse with movement. He is on Eliquis for history of DVT. Denies any lower extremity pain. [facility] Medical History Hx of cataract DVT [...] wounds MD (more content not included)... Normal [facility] Shoulder min 2 Viewson 07-29 Shoulder min 2 Views [facility] Imaging Services [address] [place] [address] 644341 Shoulder min 2 Views MR#: [id number] Acct: [id number] Name: NABOR HECK Rep #: [id number] : 1945 M 79 From: Rubén Galloway MD PCP: Dr. Ramiro Tafoya MD Status: REG ER Study: Shoulder min 2 Views Date of Exam: 07/29/24 Exam# [id number] Ordering Dr: Rei Galloway DO EXAM: XR Left Shoulder Complete, 2 or More Views CLINICAL INDICATION: TECHNIQUE: Two or more views of the left shoulder. COMPARISON: No relevant prior studies available. FINDINGS: BONES/JOINTS: Mild degenerative change of the acromioclavicular and glenohumeral joints. No acute fracture. No dislocation. SOFT TISSUES: Soft tissue swelling. RAD/Shoulder min 2 Views IMPRESSION: Degenerative changes as above. Reading Location: [facility] CC: Dr. Ramiro Tafoya MD; Dr. Rei Galloway DO Addiction Therapist: Signed Normal [facility] .Auto Diffon 06-21-2024 Basophil, Absolute 0.0 10 3/mcL Normal 0.0-0.2 [facility] Comment on above: Performed By: #### G FR, ANEU, CMP, ADIFF, LD, CBC #### [address] [address] Basophils/100 WBC (Bld) 0.5 % Normal 0.0-2.5 [facility] Comment on above: Performed By: #### G FR, ANEU, CMP, ADIFF, LD, CBC #### [address] [address] Eosinophil, Absolute 0.3 10 3/mcL Normal 0.0-0.7 [facility] Comment on above: Performed By: #### G FR, ANEU, CMP, ADIFF, LD, CBC #### [address] [address] Eosinophils/100 WBC (Bld) 3.6 % Normal 0.0-7.0 [facility] Comment on above: Performed By: #### G FR, ANEU, CMP, ADIFF, LD, CBC #### [address] [address] Lymphocyte, Absolute 2.1 10 3/mcL Normal 0.9-4.3 [facility] Comment on above: Performed By: #### G FR, ANEU, CMP, ADIFF, LD, CBC #### [address] [address] Lymphocytes/100 WBC (Bld) 27.5 % Normal 20.0-40.0 [facility] Comment on above: Performed By: #### G FR, ANEU, CMP, ADIFF, LD, CBC #### [address] [address] Monocyte, Absolute 0.9 10 3/mcL Normal 0.1-1.4 [facility] Comment on above: Performed By: #### G FR, ANEU, CMP, ADIFF, LD, CBC #### [address] [address] Monocytes/100 WBC (Bld) 11.8 % Normal 2.0-13.0 [facility] Comment on above: Performed By: #### G FR, ANEU, CMP, ADIFF, LD, CBC #### [address] [address] Neutrophils/100 WBC (Bld) 56.6 % Normal 50.0-75.0 [facility] Comment on above: Performed By: #### G FR, ANEU, CMP, ADIFF, LD, CBC #### [address] [address] .GFRon 06-21-2024 GFR Non- 71 ml/min/1.73sqm Normal [facility] Comment on above: Result Comment: GFR Population [...] FR, ANEU, CMP, ADIFF, LD, CBC #### [address] [address] GFR 87 ml/min/1.73sqm Normal [facility] Comment on above: Result Comment: GFR Population [...] FR, ANEU, CMP, ADIFF, LD, CBC #### [address] [address] .NEUABSon 06-21-2024 Neutrophil, Absolute 4.3 10 3/mcL Normal 2.3-8.1 [facility] Comment on above: Performed By: #### G FR, ANEU, CMP, ADIFF, LD, CBC #### [address] [address] CBCon 06-21-2024 Erythrocyte distribution width (RBC) [Ratio] 13.7 % Normal 11.5-15.5 [facility] Comment on above: Performed By: #### G FR, ANEU, CMP, ADIFF, LD, CBC #### [address] [address] Hematocrit (Bld) [Volume fraction] 46.6 % Normal 40.0-52.0 [facility] Comment on above: Performed By: #### G FR, ANEU, CMP, ADIFF, LD, CBC #### [place] [address] Hgb 15.6 G/dL Normal 13.0-17.5 [facility] Comment on above: Performed By: #### G FR, ANEU, CMP, ADIFF, LD, CBC #### [place] [address] MCH (RBC) [Entitic mass] 32.3 pg Normal 27.0-33.0 [facility] Comment on above: Performed By: #### G FR, ANEU, CMP, ADIFF, LD, CBC #### [place] [address] MCHC 33.6 G/dL Normal 32.0-36.0 [facility] Comment on above: Performed By: #### G FR, ANEU, CMP, ADIFF, LD, CBC #### [place] [address] MCV (RBC) [Entitic vol] 96.4 fL Normal 81.0-100.0 [facility] Comment on above: Performed By: #### G FR, ANEU, CMP, ADIFF, LD, CBC #### [place] [address] Platelet 184 10 3/mcL Normal 150-450 [facility] Comment on above: Performed By: #### G FR, ANEU, CMP, ADIFF, LD, CBC #### [place] [address] Platelet mean volume (Bld) [Entitic vol] 8.5 fL Normal 6.4-10.5 [facility] Comment on above: Performed By: #### G FR, ANEU, CMP, ADIFF, LD, CBC #### [place] [address] RBC 4.83 10 6/mcL Normal 4.50-6.00 [facility] Comment on above: Performed By: #### G FR, ANEU, CMP, ADIFF, LD, CBC #### [address] [address] WBC 7.7 10 3/mcL Normal 4.5-10.8 [facility] Comment on above: Performed By: #### G FR, ANEU, CMP, ADIFF, LD, CBC #### [address] [address] CMPon 06-21-2024 Albumin Level 3.8 G/dL Normal 3.4-4.8 [facility] Comment on above: Performed By: #### G FR, ANEU, CMP, ADIFF, LD, CBC #### [address] [address] Albumin/Globulin [Mass ratio] 1.3 {ratio} Normal 1.1-2.5 [facility] Comment on above: Performed By: #### G FR, ANEU, CMP, ADIFF, LD, CBC #### [place] [id number] ALP [Catalytic activity/Vol] 77 U/L Normal 40-135 [facility] Comment on above: Performed By: #### G FR, ANEU, CMP, ADIFF, LD, CBC #### [address] [address] ALT [Catalytic activity/Vol] 25 U/L Normal 16-63 [facility] Comment on above: Performed By: #### G FR, ANEU, CMP, ADIFF, LD, CBC #### [place] [id number] AST [Catalytic activity/Vol] 18 U/L Normal 10-40 [facility] Comment on above: Performed By: #### G FR, ANEU, CMP, ADIFF, LD, CBC #### [place] [id number] Bili Total 0.6 mg/dL Normal 0.2-1.0 [facility] Comment on above: Result Comment: Use of this assay is not recommended for patients undergoing treatment with eltrombopag due to the potential for falsely elevated results. Performed By: #### G FR, ANEU, CMP, ADIFF, LD, CBC #### [address] [address] BUN/Creatinine Ratio 16 ratio Normal 7-27 [facility] Comment on above: Performed By: #### G FR, ANEU, CMP, ADIFF, LD, CBC #### [address] [address] Calcium [Mass/Vol] 9.1 mg/dL Normal 8.4-10.2 [facility] Comment on above: Performed By: #### G FR, ANEU, CMP, ADIFF, LD, CBC #### [address] [address] Chloride [Moles/Vol] 103 mmol/L Normal 98-107 [facility] Comment on above: Performed By: #### G FR, ANEU, CMP, ADIFF, LD, CBC #### [place] [address] CO2 [Moles/Vol] 23 mmol/L Normal 23-31 [facility] Comment on above: Performed By: #### G FR, ANEU, CMP, ADIFF, LD, CBC #### [address] [address] Creatinine [Mass/Vol] 1.01 mg/dL Normal 0.70-1.30 [facility] Comment on above: Result Comment: Test ing performed on Siemens Dimension EXL analyzer using a modified kinetic Harvey technique. Performed By: #### G FR, ANEU, CMP, ADIFF, LD, CBC #### [address] [address] Electrolyte Balance 10.0 mEq/L Normal 4.0-15.0 [facility] Comment on above: Performed By: #### G FR, ANEU, CMP, ADIFF, LD, CBC #### [place] [address] Globulin 3.0 G/dL Normal [facility] Comment on above: Performed By: #### G FR, ANEU, CMP, ADIFF, LD, CBC #### [address] [address] Glucose [Mass/Vol] 92 mg/dL Normal 83-110 [facility] Comment on above: Performed By: #### G FR, ANEU, CMP, ADIFF, LD, CBC #### [place] [address] [place], [place] [address] Potassium [Moles/Vol] 4.1 mmol/L Normal 3.5-5.1 [facility] Comment on above: Performed By: #### G FR, ANEU, CMP, ADIFF, LD, CBC #### [address] [address] Sodium [Moles/Vol] 136 mmol/L Normal 136-145 [facility] Comment on above: Performed By: #### G FR, ANEU, CMP, ADIFF, LD, CBC #### [address] [address] Total Protein 6.8 G/dL Normal 6.4-8.2 [facility] Comment on above: Performed By: #### G FR, ANEU, CMP, ADIFF, LD, CBC #### [address] [address] Urea nitrogen [Mass/Vol] 16 mg/dL Normal 7-18 [facility] Comment on above: Performed By: #### G FR, ANEU, CMP, ADIFF, LD, CBC #### [address] [address] LABORATORYOrdered By: SYSTEM SYSTEM on 06-21-2024 Albumin [...] LDHon 06-21-2024 LDH 164 U/L Normal 85-227 [facility] Comment on above: Performed By: #### G FR, ANEU, CMP, ADIFF, LD, CBC #### [facility] [address] [place], [place] [address] CBC W/Diff, Automatedon 02-20 Absolute Lymph 1.68 X10 3/uL Normal 0.83-4.51 [facility] Comment on above: Performed By: #### L 500.4050, L100.0100, L501.9520, [id number] #### [facility] [address] [place], [place], [id number] Absolute Neut 4.7 X10 3/uL Normal 2.0-7.7 [facility] Comment on above: Performed By: #### L 500.4050, L100.0100, [id number], [id number] #### [facility] [address] [place], [address] Basophils/100 WBC (Bld) 0.4 % Normal 0-1 [facility] Comment on above: Performed By: #### L 500.4050, L100.0100, [id number], [id number] #### [facility] [address] [place], [address] Eosinophils/100 WBC (Bld) 2.9 % Normal 0-5 [facility] Comment on above: Performed By: #### L 500.4050, L100.0100, [id number], [id number] #### [facility] [address] [place], [address] Erythrocyte distribution width (RBC) [Ratio] 13.0 % Normal 11.6-14.6 [facility] Comment on above: Performed By: #### L 500.4050, L100.0100, [id number], [id number] #### [facility] [address] [place], [address] Hematocrit (Bld) [Volume fraction] 47.9 % Normal 40-54 [facility] Comment on above: Performed By: #### L 500.4050, L100.0100, [id number], [id number] #### [facility] [address] [place], [address] Hemoglobin (Bld) [Mass/Vol] 15.7 g/dL Normal 13.0-16.5 [facility] Comment on above: Performed By: #### L 500.4050, L100.0100, [id number], [id number] #### [facility] [address] [place], [address] IG% 0.400 Normal 0.0-0.9 [facility] Comment on above: Result Comment: IG% - Immature Granulocytes (promyelocytes, myelocytes and metamyelocytes) > 1% indicates that a LEFT SHIFT is Present. Performed By: #### L 500.4050, L100.0100, [id number], [id number] #### [facility] [address] [place], [address] Lymphocytes/100 WBC (Bld) 22.3 % Normal 19-41 [facility] Comment on above: Performed By: #### L 500.4050, L100.0100, [id number], [id number] #### [facility] [address] [place], [address] MCH (RBC) [Entitic mass] 30.8 pg Normal 27.0-32.0 [facility] Comment on above: Performed By: #### L 500.4050, L100.0100, [id number], [id number] #### [facility] [address] [place], [address] MCHC (RBC) [Mass/Vol] 32.8 g/dL Normal 32-36 [facility] Comment on above: Performed By: #### L 500.4050, L100.0100, [id number], [id number] #### [facility] [address] [place], [address] MCV (RBC) [Entitic vol] 94.1 fL High 80-94 [facility] Comment on above: Performed By: #### L 500.4050, L100.0100, [id number], [id number] #### [facility] [address] [place], [address] Monocytes/100 WBC (Bld) 12.0 % High 0-10 [facility] Comment on above: Performed By: #### L 500.4050, L100.0100, [id number], [id number] #### [facility] [address] [place], [address] Neutrophils/100 WBC (Bld) 62.0 % Normal 47-70 [facility] Comment on above: Performed By: #### L 500.4050, L100.0100, [id number], [id number] #### [facility] [address] [place], [address] Nucleated RBC (Bld) [#/Vol] 0 10*3/uL Normal 0-5 [facility] Comment on above: Performed By: #### L 500.4050, L100.0100, [id number], [id number] #### [facility] [address] [place], [address] Platelet mean volume (Bld) [Entitic vol] 10.1 fL Normal 6.2-12.0 [facility] Comment on above: Performed By: #### L 500.4050, L100.0100, [id number], [id number] #### [facility] [address] [place], [address] Platelets (Bld) [#/Vol] 192 10*3/uL Normal 150-450 [facility] Comment on above: Performed By: #### L 500.4050, L100.0100, [id number], [id number] #### [facility] [address] [place], [address] RBC (Bld) [#/Vol] 5.09 10*6/uL Normal 4.6-6.2 [facility] Comment on above: Performed By: #### L 500.4050, L100.0100, [id number], [id number] #### [facility] [address] [place], [address] RDW SD 45.0 fl High 35.1-43.9 [facility] Comment on above: Performed By: #### L 500.4050, L100.0100, [id number], [id number] #### [facility] [address] [place], [address] WBC (Bld) [#/Vol] 7.5 10*3/uL Normal 4.4-11.0 [facility] Comment on above: Performed By: #### L 500.4050, L100.0100, [id number], [id number] #### [facility] [address] [place], [address] Comprehensive Metabolic [facility] 03-18-2024 Albumin [Mass/Vol] 3.6 g/dL Normal 3.2-5.0 [facility] Comment on above: Performed By: #### L 500.4050, L100.0100, [id number], [id number] #### [facility] [address] [place], [address] Albumin/Globulin [Mass ratio] 1.0 {ratio} Normal 0.9-2.4 [facility] Comment on above: Performed By: #### L 500.4050, L100.0100, [id number], [id number] #### [facility] [address] [place], [address] ALK P 73 U/L Normal 45-117 [facility] Comment on above: Performed By: #### L 500.4050, L100.0100, [id number], [id number] #### [facility] [address] [place], [address] ALT [Catalytic activity/Vol] 25 U/L Normal 16-61 [facility] Comment on above: Performed By: #### L 500.4050, L100.0100, [id number], [id number] #### [facility] [address] [place], [address] AST [Catalytic activity/Vol] 15 U/L Normal 15-37 [facility] Comment on above: Performed By: #### L 500.4050, L100.0100, [id number], [id number] #### [facility] [address] [place], [address] Bilirubin [Mass/Vol] 0.70 mg/dL Normal 0.20-1.00 [facility] Comment on above: Result Comment: For patients on eltrombopag therapy, use of Dimension [place] TBIL is not recommended. Performed By: #### L 500.4050, L100.0100, [id number], [id number] #### [facility] [address] [place], [address] BUN/CRE 21.5 RATIO High 10-20 [facility] Comment on above: Performed By: #### L 500.4050, L100.0100, [id number], [id number] #### [facility] [address] [place], [address] CA,Total 9.0 mg/dL Normal 8.5-10.1 [facility] Comment on above: Performed By: #### L 500.4050, L100.0100, [id number], [id number] #### [facility] [address] [place], [address] Chloride [Moles/Vol] 110 mmol/L High 98-107 [facility] Comment on above: Performed By: #### L 500.4050, L100.0100, [id number], [id number] #### [facility] [address] [place], [address] CO2 [Moles/Vol] 23.0 mmol/L Normal 21.0-32.0 [facility] Comment on above: Performed By: #### L 500.4050, L100.0100, [id number], L506.1000 #### [facility] [address] [place], [address] Creatinine [Mass/Vol] 0.98 mg/dL Normal 0.70-1.30 [facility] Comment on above: Result Comment: The validity of the calculated GFR GFRAA in patients over 70 years has not been determined. Clinical correlation is essential. Performed By: #### L 500.4050, L100.0100, L501.9520, L506.1000 #### [facility] [address] [place], [address] EST GFR - AA 96 mL/min Normal >60 [facility] Comment on above: Result Comment: Afri can Anguillan GFR Calc Performed By: #### L 500.4050, L100.0100, [id number], [id number] #### [facility] [address] [place], [address] GAP 4 Low 5-15 [facility] Comment on above: Performed By: #### L 500.4050, L100.0100, [id number], L506.1000 #### [facility] [address] [place], [address] GFR/1.73 sq M.predicted among non-blacks MDRD (S/P/Bld) [Vol rate/Area] 79 mL/min/{1.73_m2} Normal >60 [facility] Comment on above: Result Comment: Non- GFR Calc Performed By: #### L 500.4050, L100.0100, [id number], [id number] #### [facility] [address] [place], [address] Globulin (S) [Mass/Vol] 3.5 g/dL Normal 2.2-4.2 [facility] Comment on above: Performed By: #### L 500.4050, L100.0100, [id number], L506.1000 #### [facility] [address] [place], [address] Glucose [Mass/Vol] 89 mg/dL Normal 74-106 [facility] Comment on above: Performed By: #### L 500.4050, L100.0100, [id number], [id number] #### [facility] [address] [place], [address] Potassium [Moles/Vol] 4.1 mmol/L Normal 3.5-5.1 [facility] Comment on above: Performed By: #### L 500.4050, L100.0100, L501.9520, [id number] #### [facility] [address] [place], [address] Sodium [Moles/Vol] 136 mmol/L Normal 136-145 [facility] Comment on above: Performed By: #### L 500.4050, L100.0100, [id number], [id number] #### [facility] [address] [place], [address] T PROT 7.1 g/dL Normal 6.4-8.2 [facility] Comment on above: Performed By: #### L 500.4050, L100.0100, L501.9520, [id number] #### [facility] [address] [place], [address] Urea nitrogen [Mass/Vol] 21 mg/dL High 7-18 [facility] Comment on above: Performed By: #### L 500.4050, L100.0100, L501.9520, [id number] #### [facility] [address] [place], [address] Thyroid Stim Hormone (TSH)on 03-18-2024 TSH 1.290 uIU/mL Normal 0.358-3.740 [facility] Comment on above: Performed By: #### L 500.4050, L100.0100, L501.9520, L506.1000 #### [facility] [address] [place], [address] Vitamin D,25 Hydroxyon 03-18 Vitamin D 25-OH 25.3 ng/mL Normal [facility] Comment on above: Result Comment: Elsie min D 25(OH) Status Range Deficiency <20 ng/mL (50nmol/L) Insufficiency 20 - 30 ng/mL (50 - 75 nmol/L) Sufficiency 30 - 100 ng/mL (75 - 250 nmol/L) Toxicity >100 ng/mL (>250 nmol/L) Performed By: #### L 500.4050, L100.0100, L501.9520, L506.1000 #### [facility] [address] [place], [address] Absolute lymphocyte countOrd ered By: Ramiro Tafoya on 09-11-2023 Lymphocytes Auto (Unsp spec) [#/Vol] 1.78 10*3/uL 0.83-4.51 [facility] Automated lymphocyte count a s percentage of total leukocytesOrdered By: Ramiro Tafoya on 09-11-2023 Lymphocytes/100 WBC Auto (Unsp spec) 20.5 % 19-41 [facility] Basophil percentageOrdered B y: Ramiro Tafoya on 09-11-2023 Basophils/100 WBC (Bld) 0.5 % 0-1 [facility] Bilirubin [Mass/Vol] 0.40 mg/dL 0.20-1.00 [facility] Comment on above: For patients on eltr ombopag therapy, use of Dimension [place] TBIL is not recommended. Chloride [Moles/Vol] 114 mmol/L 98-107 [facility] Eosinophils/100 WBC (Bld) 3.2 % 0-5 [facility] Glucose [Mass/Vol] 110 mg/dL 74-106 [facility] Comment on above: Fasting Glucose resu lt from 100 to 125 mg/dL suggests IMPAIRED HOMEOSTASIS per A.D.A. criteria. Hemoglobin (Bld) [Mass/Vol] 14.4 g/dL 13.0-16.5 [facility] Monocytes/100 WBC (Bld) 10.6 % 0-10 [facility] Neutrophils (Bld) [#/Vol] 5.6 10*3/uL 2.0-7.7 [facility] Neutrophils/100 WBC (Bld) 64.9 % 47-70 [facility] Potassium [Moles/Vol] 3.8 mmol/L 3.5-5.1 [facility] Protein [Mass/Vol] 6.6 g/dL 6.4-8.2 [facility] Sodium [Moles/Vol] 141 mmol/L 136-145 [facility] WBC (Bld) [#/Vol] 8.7 10*3/uL 4.4-11.0 [facility] Determination of erythrocyte mean corpuscular volume (MCV)Ordered By: Ramiro Tafoya on 09-11-2023 MCV (RBC) [Entitic vol] 95.7 fL 80-94 [facility] Erythrocyte distribution wid th ratioOrdered By: Ramiro Tafoya 09-11-2023 Erythrocyte distribution width (RBC) [Ratio] 13.2 % 11.6-14.6 [facility] Erythrocyte distribution wid th standard deviationOrdered By: Ramiro Tafoya 09-11-2023 Erythrocyte distribution width (RBC) [Entitic vol] 46.5 fL 35.1-43.9 [facility] Hematocrit Auto (Bld) [Volum e fraction]Ordered By: Ramiro Tafoya 09-11-2023 Hematocrit (Bld) [Volume fraction] 44.1 % 40-54 [facility] Immature granulocytes/100 WB C Auto (Bld)Ordered By: Ramiro Tafoya on 09-11-2023 Immature granulocytes/100 WBC (Bld) 0.300 % 0.0-0.9 [facility] Comment on above: IG% - Immature Granu locytes (promyelocytes, myelocytes and metamyelocytes) > 1% indicates that a LEFT SHIFT is Present. Laboratory - Chemistry and C hemistry - challengeOrdered By: Ramiro Tafoya on 09-11-2023 Albumin/Globulin [Mass ratio] 1.1 {ratio} 0.9-2.4 [facility] ALP [Catalytic activity/Vol] 66 U/L 45-117 [facility] ALT [Catalytic activity/Vol] 31 U/L 16-61 [facility] CO2 [Moles/Vol] 22.0 mmol/L 21.0-32.0 [facility] Globulin (S) [Mass/Vol] 3.1 g/dL 2.2-4.2 [facility] Urea nitrogen/Creatinine [Mass ratio] 16.0 mg/mg 10-20 [facility] - Hematology and Cell countsOrdered By: Ramiro Tafoya on 09-11-2023 MCH (RBC) [Entitic mass] 31.2 pg 27.0-32.0 [facility] MCHC (RBC) [Mass/Vol] 32.7 g/dL 32-36 [facility] Nucleated RBC/100 WBC (Bld) [Ratio] 0 % 0-5 [facility] Platelet mean volume (Bld) [Entitic vol] 10.6 fL 6.2-12.0 [facility] Platelets (Bld) [#/Vol] 180 10*3/uL 150-450 [facility] No Panel InformationOrdered By: Ramiro Tafoya on 09-11-2023 Estimated GFR (MDRD) Amer 101 mL/min >60 [facility] Comment on above: GFR Calc Estimated GFR (MDRD) Non-Af Amer 83 mL/min >60 [facility] Comment on above: Non- GFR Calc Vitamin D 25-Hydroxy 39.5 ng/mL [facility] Comment on above: Vitamin D 25(OH) Sta tus Range Deficiency <20 ng/mL (50nmol/L) Insufficiency 20 - 30 ng/mL (50 - 75 nmol/L) Sufficiency 30 - 100 ng/mL (75 - 250 nmol/L) Toxicity >100 ng/mL (>250 nmol/L) RBC Auto (Bld) [#/Vol]Ordere d By: Ramiro Tafoya on 09-11-2023 RBC (Bld) [#/Vol] 4.61 10*6/uL 4.6-6.2 [facility] Serum or plasma calcium winsome urement (mass/volume)Ordered By: Ramiro Tafoya on 09-11-2023 Calcium [Mass/Vol] 8.4 mg/dL 8[facility]10.[facility] Serum or plasma creatinine m easurement (mass/volume)Ordered By: Ramiro Tafoya on 09-11-2023 Creatinine [Mass/Vol] 0.94 mg/dL 0.70-1.30 [facility] Comment on above: The validity of the calculated GFR & GFRAA in patients over 70 years has not been determined. Clinical correlation is essential. Serum or plasma thyroid stim ulating hormone (TSH) measurement (units/volume)Ordered By: Ramiro Tafoya on 09-11-2023 TSH Qn 0.71 uIU/mL 0.358-3.74 [facility] Serum or plasma urea nitroge n measurement (mass/volume)Ordered By: Ramiro Tafoya on 09-11-2023 Urea nitrogen [Mass/Vol] 15 mg/dL 7-18 [facility] Thin prep Papanicolaou smear with manual screeningOrdered By: Ramiro Tafoya on 09-11-2023 Thin prep Papanicolaou smear with manual screening 3.5 g/dL 3.2-5.0 [facility] Thin prep Papanicolaou smear with manual screening 21 U/L 15-37 [facility] Thin prep Papanicolaou smear with manual screening 5 5-15 [facility] .Auto Diffon 06-08-2023 Basophil, Absolute 0.0 10 3/mcL Normal 0.0-0.2 [facility] ([place]) Comment on above: Performed By: #### L D, CBC, CMP, ANEU, ADIFF, GFR #### [address] [address] Basophils/100 WBC (Bld) 0.6 % Normal 0.0-2.5 [facility] ([place]) Comment on above: Performed By: #### L D, CBC, CMP, ANEU, ADIFF, GFR #### [address] [address] Eosinophil, Absolute 0.2 10 3/mcL Normal 0.0-0.4 [facility] ([place]) Comment on above: Performed By: #### L D, CBC, CMP, ANEU, ADIFF, GFR #### [address] [address] Eosinophils/100 WBC (Bld) 4.0 % Normal 0.0-7.0 [facility] ([place]) Comment on above: Performed By: #### L D, CBC, CMP, ANEU, ADIFF, GFR #### [address] [address] Lymphocyte, Absolute 1.6 10 3/mcL Normal 0.8-3.9 [facility] ([place] Comment on above: Performed By: #### L D, CBC, CMP, ANEU, ADIFF, GFR #### [address] [address] Lymphocytes/100 WBC (Bld) 28.9 % Normal 10.0-50.0 [facility] ([place] Comment on above: Performed By: #### L D, CBC, CMP, ANEU, ADIFF, GFR #### [address] [address] Monocyte, Absolute 0.7 10 3/mcL Normal 0.2-1.0 [facility] ([place]) Comment on above: Performed By: #### L D, CBC, CMP, ANEU, ADIFF, GFR #### [address] [address] Monocytes/100 WBC (Bld) 12.2 % Normal 1.7-13.0 [facility] ([place]) Comment on above: Performed By: #### L D, CBC, CMP, ANEU, ADIFF, GFR #### [address] [address] Neutrophils/100 WBC (Bld) 54.3 % Normal 37.0-80.0 [facility] ([place] Comment on above: Performed By: #### L D, CBC, CMP, ANEU, ADIFF, GFR #### [address] [address] .GFRon 06-08-2023 GFR 78 ml/min/1.73sqm Normal [facility] ([place]) Comment on above: Result Comment: GFR Population [...] D, CBC, CMP, ANEU, ADIFF, GFR #### [address] [address] GFR Non- 64 ml/min/1.73sqm Normal [facility] ([place]) Comment on above: Result Comment: GFR Population [...] D, CBC, CMP, ANEU, ADIFF, GFR #### [address] [address] .NEUABSon 06-08-2023 Neutrophil, Absolute 3.1 10 3/mcL Normal 2.9-6.2 [facility] ([place] Comment on above: Performed By: #### L D, CBC, CMP, ANEU, ADIFF, GFR #### [address] [address] CBCon 06-08-2023 Erythrocyte distribution width (RBC) [Ratio] 13.7 % Normal 11.5-14.5 [facility] ([place] Comment on above: Performed By: #### L D, CBC, CMP, ANEU, ADIFF, GFR #### [address] [address] Hematocrit (Bld) [Volume fraction] 44.8 % Normal 42.0-52.0 [facility] ([place] Comment on above: Performed By: #### L D, CBC, CMP, ANEU, ADIFF, GFR #### [address] [address] Hgb 15.2 G/dL Normal 14.0-18.0 [facility] ([place] Comment on above: Performed By: #### L D, CBC, CMP, ANEU, ADIFF, GFR #### [address] [address] MCH (RBC) [Entitic mass] 32.1 pg High 27.0-31.2 [facility] ([place]) Comment on above: Performed By: #### L D, CBC, CMP, ANEU, ADIFF, GFR #### [address] [address] MCHC 34.0 G/dL Normal 31.8-35.4 [facility] ([place] Comment on above: Performed By: #### L D, CBC, CMP, ANEU, ADIFF, GFR #### [address] [address] MCV (RBC) [Entitic vol] 94.4 fL High 80.0-94.0 [facility] ([place]) Comment on above: Performed By: #### L D, CBC, CMP, ANEU, ADIFF, GFR #### [address] [address] Platelet 172 10 3/mcL Normal 130-400 [facility] ([place]) Comment on above: Performed By: #### L D, CBC, CMP, ANEU, ADIFF, GFR #### [address] [address] Platelet mean volume (Bld) [Entitic vol] 8.3 fL Normal 7.4-10.4 [facility] ([place]) Comment on above: Performed By: #### L D, CBC, CMP, ANEU, ADIFF, GFR #### [address] [address] RBC 4.74 10 6/mcL Normal 4.04-6.13 [facility] ([place]) Comment on above: Performed By: #### L D, CBC, CMP, ANEU, ADIFF, GFR #### [address] [address] WBC 5.7 10 3/mcL Normal 4.6-10.8 [facility] ([place] Comment on above: Performed By: #### L D, CBC, CMP, ANEU, ADIFF, GFR #### [address] [address] CMPon 06-08-2023 Albumin Level 3.7 G/dL Normal 3.4-4.8 [facility] ([place]) Comment on above: Performed By: #### L D, CBC, CMP, ANEU, ADIFF, GFR #### [address] [address] Albumin/Globulin [Mass ratio] 1.2 {ratio} Normal 1.1-2.5 [facility] ([place]) Comment on above: Performed By: #### L D, CBC, CMP, ANEU, ADIFF, GFR #### [address] [address] ALP [Catalytic activity/Vol] 74 U/L Normal 40-135 [facility] ([place]) Comment on above: Performed By: #### L D, CBC, CMP, ANEU, ADIFF, GFR #### [address] [address] ALT [Catalytic activity/Vol] 30 U/L Normal 16-63 [facility] ([place] Comment on above: Performed By: #### L D, CBC, CMP, ANEU, ADIFF, GFR #### [address] [address] AST [Catalytic activity/Vol] 15 U/L Normal 10-40 [facility] ([place] Comment on above: Performed By: #### L D, CBC, CMP, ANEU, ADIFF, GFR #### [address] [address] Bili Total 1.0 mg/dL Normal 0.2-1.0 [facility] ([place]) Comment on above: Result Comment: Use of this assay is not recommended for patients undergoing treatment with eltrombopag due to the potential for falsely elevated results. Performed By: #### L D, CBC, CMP, ANEU, ADIFF, GFR #### [address] [address] BUN/Creatinine Ratio 15 ratio Normal 7-27 [facility] ([place]) Comment on above: Performed By: #### L D, CBC, CMP, ANEU, ADIFF, GFR #### [address] [address] Calcium [Mass/Vol] 9.1 mg/dL Normal 8.4-10.2 [facility] ([place]) Comment on above: Performed By: #### L D, CBC, CMP, ANEU, ADIFF, GFR #### [address] [address] Chloride [Moles/Vol] 106 mmol/L Normal 98-107 [facility] ([place]) Comment on above: Performed By: #### L D, CBC, CMP, ANEU, ADIFF, GFR #### [address] [address] CO2 [Moles/Vol] 28 mmol/L Normal 23-31 [facility] ([place]) Comment on above: Performed By: #### L D, CBC, CMP, ANEU, ADIFF, GFR #### [address] [address] Creatinine [Mass/Vol] 1.11 mg/dL Normal 0.70-1.30 [facility] ([place]) Comment on above: Performed By: #### L D, CBC, CMP, ANEU, ADIFF, GFR #### [address] [address] Electrolyte Balance 9.0 mEq/L Normal 4.0-15.0 [facility] ([place]) Comment on above: Performed By: #### L D, CBC, CMP, ANEU, ADIFF, GFR #### [address] [address] Globulin 3.1 G/dL Normal [facility] ([place] Comment on above: Performed By: #### L D, CBC, CMP, ANEU, ADIFF, GFR #### [address] [address] Glucose [Mass/Vol] 88 mg/dL Normal 83-110 [facility] ([place]) Comment on above: Performed By: #### L D, CBC, CMP, ANEU, ADIFF, GFR #### [address] [address] Potassium [Moles/Vol] 4.7 mmol/L Normal 3.5-5.1 [facility] ([place]) Comment on above: Performed By: #### L D, CBC, CMP, ANEU, ADIFF, GFR #### [address] [address] Sodium [Moles/Vol] 143 mmol/L Normal 136-145 [facility] ([place]) Comment on above: Performed By: #### L D, CBC, CMP, ANEU, ADIFF, GFR #### [address] [address] Total Protein 6.8 G/dL Normal 6.4-8.2 [facility] ([place] Comment on above: Performed By: #### L D, CBC, CMP, ANEU, ADIFF, GFR #### [address] [address] Urea nitrogen [Mass/Vol] 17 mg/dL Normal 7-18 [facility] ([place] Comment on above: Performed By: #### L D, CBC, CMP, ANEU, ADIFF, GFR #### [address] [address] LABORATORYOrdered By: SYSTEM SYSTEM on 06-08-2023 Albumin [...] LDHon 06-08-2023 LDH 137 U/L Normal 85-227 [facility] ([place]) Comment on above: Performed By: #### L D, CBC, CMP, ANEU, ADIFF, GFR #### [address] [place], [place] [address] Absolute lymphocyte countOrd ered By: Ramiro Tafoya on 03-15-2023 Lymphocytes Auto (Unsp spec) [#/Vol] 2.45 10*3/uL 0.83-4.51 [facility] Basophil percentageOrdered B y: Ramiro Tafoya on 03-15-2023 Basophils/100 WBC (Bld) 0.5 % 0-1 [facility] Bilirubin [Mass/Vol] 0.60 mg/dL 0.20-1.00 [facility] Comment on above: For patients on eltr ombopag therapy, use of Dimension [place] TBIL is not recommended. Chloride [Moles/Vol] 112 mmol/L 98-107 [facility] Eosinophils/100 WBC (Bld) 3.5 % 0-5 [facility] Glucose [Mass/Vol] 108 mg/dL 74-106 [facility] Comment on above: Fasting Glucose resu lt from 100 to 125 mg/dL suggests IMPAIRED HOMEOSTASIS per A.D.A. criteria. Neutrophils (Bld) [#/Vol] 4.2 10*3/uL 2.0-7.7 [facility] Neutrophils/100 WBC (Bld) 53.7 % 47-70 [facility] Potassium [Moles/Vol] 3.9 mmol/L 3.5-5.1 [facility] Protein [Mass/Vol] 6.9 g/dL 6.4-8.2 [facility] Sodium [Moles/Vol] 141 mmol/L 136-145 [facility] WBC (Bld) [#/Vol] 7.7 10*3/uL 4.4-11.0 [facility] Blood erythrocytes count (nu mber/volume)Ordered By: Ramiro Tafoya on 03-15-2023 RBC (Bld) [#/Vol] 4.85 10*6/uL 4.6-6.2 [facility] Blood hemoglobin measurement (mass/volume)Ordered By: Ramiro Tafoya on 03-15-2023 Hemoglobin (Bld) [Mass/Vol] 15.0 g/dL 13.0-16.5 [facility] Blood lymphocytes/100 leukoc ytesOrdered By: Ramiro Tafoya on 03-15-2023 Lymphocytes/100 WBC (Bld) 31.7 % 19-41 [facility] Blood monocytes/100 leukocyt esOrdered By: Ramiro Tafoya on 03-15-2023 Monocytes/100 WBC (Bld) 10.3 % 0-10 [facility] Blood platelet mean volumeOr dered By: Ramiro Tafoya on 03-15-2023 Platelet mean volume (Bld) [Entitic vol] 10.0 fL 6.2-12.0 [facility] Determination of erythrocyte mean corpuscular volume (MCV)Ordered By: Ramiro Tafoya on 03-15-2023 MCV (RBC) [Entitic vol] 96.9 fL 80-94 [facility] Hematocrit Auto (Bld) [Volum e fraction]Ordered By: Ramiro Tafoya on 03-15-2023 Hematocrit (Bld) [Volume fraction] 47.0 % 40-54 [facility] Laboratory - Chemistry and C hemistry - challengeOrdered By: Ramiro Tafoya on 03-15-2023 ALP [Catalytic activity/Vol] 66 U/L 45-117 [facility] ALT [Catalytic activity/Vol] 24 U/L 16-61 [facility] CO2 [Moles/Vol] 22.0 mmol/L 21.0-32.0 [facility] Globulin (S) [Mass/Vol] 3.2 g/dL 2.2-4.2 [facility] Urea nitrogen/Creatinine [Mass ratio] 19.3 mg/mg 10-20 [facility] Laboratory - Hematology and Cell countsOrdered By: Ramiro Tafoya on 03-15-2023 Erythrocyte distribution width (RBC) [Entitic vol] 46.6 fL 35.1-43.9 [facility] Erythrocyte distribution width (RBC) [Ratio] 13.0 % 11.6-14.6 [facility] Immature granulocytes/100 WBC (Bld) 0.300 % 0.0-0.9 [facility] Comment on above: IG% - Immature Granu locytes (promyelocytes, myelocytes and metamyelocytes) > 1% indicates that a LEFT SHIFT is Present. MCH (RBC) [Entitic mass] 30.9 pg 27.0-32.0 [facility] Nucleated RBC/100 WBC (Bld) [Ratio] 0 % 0-5 [facility] MCHC Auto (RBC) [Mass/Vol]Or dered By: Ramiro Tafoya on 03-15-2023 MCHC (RBC) [Mass/Vol] 31.9 g/dL 32-36 [facility] No Panel InformationOrdered By: Ramiro Tafoya on 03-15-2023 Estimated GFR (MDRD) Amer 101 mL/min >60 [facility] Comment on above: GFR Calc Estimated GFR (MDRD) Non-Af Amer 83 mL/min >60 [facility] Comment on above: Non- GFR Calc Thyroid Stimulating Hormone (TSH) 0.84 uIU/mL 0.358-3.74 [facility] Vitamin D 25-Hydroxy 41.4 ng/mL [facility] Comment on above: Vitamin D 25(OH) Sta tus Range Deficiency <20 ng/mL (50nmol/L) Insufficiency 20 - 30 ng/mL (50 - 75 nmol/L) Sufficiency 30 - 100 ng/mL (75 - 250 nmol/L) Toxicity >100 ng/mL (>250 nmol/L) Platelets bldOrdered By: Ramiro Tafoya on 03-15-2023 Platelets (Bld) [#/Vol] 196 10*3/uL 150-450 [facility] Serum or plasma albumin winsome urement (mass/volume)Ordered By: Ramiro Tafoya on 03-15-2023 Albumin [Mass/Vol] 3.7 g/dL 3.2-5.0 [facility] Serum or plasma albumin/glob ulin mass ratioOrdered By: Ramiro Tafoya on 03-15-2023 Albumin/Globulin [Mass ratio] 1.2 {ratio} 0.9-2.4 [facility] Serum or plasma calcium winsome urement (mass/volume)Ordered By: Ramiro Tafoya on 03-15-2023 Calcium [Mass/Vol] 8.6 mg/dL 8.5-10.1 [facility] Serum or plasma creatinine m easurement (mass/volume)Ordered By: Ramiro Tafoya on 03-15-2023 Creatinine [Mass/Vol] 0.94 mg/dL 0.70-1.30 [facility] Comment on above: The validity of the calculated GFR & GFRAA in patients over 70 years has not been determined. Clinical correlation is essential. Serum or plasma urea nitroge n measurement (mass/volume)Ordered By: Ramiro Tafoya on 03-15-2023 Urea nitrogen [Mass/Vol] 18 mg/dL 7-18 [facility] Thin prep Papanicolaou smear with manual screeningOrdered By: Ramiro Tafoya 03-15-2023 Thin prep Papanicolaou smear with manual screening 17 U/L 15-37 [facility] Thin prep Papanicolaou smear with manual screening 7 5-15 [facility] Absolute lymphocyte countOrd ered By: Dr. Tafoya on 09-08-2022 Lymphocytes Auto (Unsp spec) [#/Vol] 2.40 10*3/uL 0.83-4.51 [facility] Basophil percentageOrdered B y: Dr. Tafoya on 09-08-2022 Basophils/100 WBC (Bld) 0.4 % 0-1 [facility] Bilirubin [Mass/Vol] 0.50 mg/dL 0.20-1.00 [facility] Comment on above: For patients on eltr ombopag therapy, use of Dimension [place] TBIL is not recommended. Chloride [Moles/Vol] 107 mmol/L 98-107 [facility] Eosinophils/100 WBC (Bld) 3.9 % 0-5 [facility] Glucose [Mass/Vol] 93 mg/dL 74-106 [facility] Neutrophils (Bld) [#/Vol] 3.5 10*3/uL 2.0-7.7 [facility] Neutrophils/100 WBC (Bld) 50.1 % 47-70 [facility] Potassium [Moles/Vol] 4.1 mmol/L 3.5-5.1 [facility] Protein [Mass/Vol] 7.4 g/dL 6.4-8.2 [facility] Sodium [Moles/Vol] 136 mmol/L 136-145 [facility] WBC (Bld) [#/Vol] 6.9 10*3/uL 4.4-11.0 [facility] Blood erythrocytes count (nu mber/volume)Ordered By: Dr. Tafoya on 09-08-2022 RBC (Bld) [#/Vol] 4.66 10*6/uL 4.6-6.2 [facility] Blood hemoglobin measurement (mass/volume)Ordered By: Dr. Tafoya on 09-08-2022 Hemoglobin (Bld) [Mass/Vol] 15.1 g/dL 13.0-16.5 [facility] Blood lymphocytes/100 leukoc ytesOrdered By: Dr. Tafoya on 09-08-2022 Lymphocytes/100 WBC (Bld) 34.6 % 19-41 [facility] Blood monocytes/100 leukocyt esOrdered By: Dr. Tafoya on 09-08-2022 Monocytes/100 WBC (Bld) 10.7 % 0-10 [facility] Blood platelet mean volumeOr dered By: Dr. Tafoya on 09-08-2022 Platelet mean volume (Bld) [Entitic vol] 9.9 fL 6.2-12.0 [facility] Determination of erythrocyte mean corpuscular volume (MCV)Ordered By: Dr. Tafoya on 09-08-2022 MCV (RBC) [Entitic vol] 96.6 fL 80-94 [facility] Hematocrit Auto (Bld) [Volum e fraction]Ordered By: Dr. Tafoya on 09-08-2022 Hematocrit (Bld) [Volume fraction] 45.0 % 40-54 [facility] Laboratory - Chemistry and C hemistry - challengeOrdered By: Dr. Tafoya on 09-08-2022 ALP [Catalytic activity/Vol] 64 U/L 45-117 [facility] ALT [Catalytic activity/Vol] 25 U/L 16-61 [facility] CO2 [Moles/Vol] 27.0 mmol/L 21.0-32.0 [facility] Globulin (S) [Mass/Vol] 3.7 g/dL 2.2-4.2 [facility] Urea nitrogen/Creatinine [Mass ratio] 18.4 mg/mg 10-20 [facility] Laboratory - Hematology and Cell countsOrdered By: Dr. Tafoya on 09-08-2022 Erythrocyte distribution width (RBC) [Entitic vol] 46.4 fL 35.1-43.9 [facility] Erythrocyte distribution width (RBC) [Ratio] 13.0 % 11.6-14.6 [facility] Immature granulocytes/100 WBC (Bld) 0.300 % 0.0-0.9 [facility] Comment on above: IG% - Immature Granu locytes (promyelocytes, myelocytes and metamyelocytes) > 1% indicates that a LEFT SHIFT is Present. MCH (RBC) [Entitic mass] 32.4 pg 27.0-32.0 [facility] Nucleated RBC/100 WBC (Bld) [Ratio] 0 % 0-5 [facility] MCHC Auto (RBC) [Mass/Vol]Or dered By: Dr. Tafoya on 09-08-2022 MCHC (RBC) [Mass/Vol] 33.6 g/dL 32-36 [facility] No Panel InformationOrdered By: Dr. Tafoya on 09-08-2022 Estimated GFR (MDRD) Amer 90 mL/min >60 [facility] Comment on above: GFR Calc Estimated GFR (MDRD) Non-Af Amer 75 mL/min >60 [facility] Comment on above: Non- GFR Calc Thyroid Stimulating Hormone (TSH) 0.94 uIU/mL 0.358-3.74 [facility] Vitamin D 25-Hydroxy 61.8 ng/mL [facility] Comment on above: Vitamin D 25(OH) Sta tus Range Deficiency <20 ng/mL (50nmol/L) Insufficiency 20 - 30 ng/mL (50 - 75 nmol/L) Sufficiency 30 - 100 ng/mL (75 - 250 nmol/L) Toxicity >100 ng/mL (>250 nmol/L) Platelets bldOrdered By: Dr. Tafoya on 09-08-2022 Platelets (Bld) [#/Vol] 187 10*3/uL 150-450 [facility] Serum or plasma albumin winsome urement (mass/volume)Ordered By: Dr. Tafoya on 09-08-2022 Albumin [Mass/Vol] 3.7 g/dL 3.2-5.0 [facility] Serum or plasma albumin/glob ulin mass ratioOrdered By: Dr. Tafoya on 09-08-2022 Albumin/Globulin [Mass ratio] 1.0 {ratio} 0.9-2.4 [facility] Serum or plasma calcium winsome urement (mass/volume)Ordered By: Dr. Tafoya on 09-08-2022 Calcium [Mass/Vol] 9.0 mg/dL 8.5-10.1 [facility] Serum or plasma creatinine m easurement (mass/volume)Ordered By: Dr. Tafoya on 09-08-2022 Creatinine [Mass/Vol] 1.03 mg/dL 0.70-1.30 [facility] Comment on above: The validity of the calculated GFR & GFRAA in patients over 70 years has not been determined. Clinical correlation is essential. Serum or plasma urea nitroge n measurement (mass/volume)Ordered By: Dr. Tafoya on 09-08-2022 Urea nitrogen [Mass/Vol] 19 mg/dL 7-18 [facility] Thin prep Papanicolaou smear with manual screeningOrdered By: Dr. Tafoya on 09-08-2022 Thin prep Papanicolaou smear with manual screening 20 U/L 15-37 [facility] Thin prep Papanicolaou smear with manual screening 2 5-15 [facility] LABORATORYOrdered By: Janna Ghotra on 04-26-2022 Albumin [...] Auto (Unsp spec) [#/Vol] 2.32 10*3/uL 0.83-4.51 [facility] Work Phone: Basophil percentageon 2021 Basophils/100 WBC (Bld) 0.6 % 0-1 [facility] Work Phone: Bilirubin [Mass/Vol] 0.50 mg/dL 0.20-1.00 [facility] Work Phone: Comment on above: For patients on eltr ombopag therapy, use of Dimension [place] TBIL is not recommended. Chloride [Moles/Vol] 111 mmol/L 98-107 [facility] Work Phone: Eosinophils/100 WBC (Bld) 4.1 % 0-5 [facility] Work Phone: Glucose [Mass/Vol] 102 mg/dL 74-106 [facility] Work Phone: Comment on above: Fasting Glucose resu lt from 100 to 125 mg/dL suggests IMPAIRED HOMEOSTASIS per A.D.A. criteria. Neutrophils (Bld) [#/Vol] 4.4 10*3/uL 2.0-7.7 [facility] Work Phone: Neutrophils/100 WBC (Bld) 54.6 % 47-70 [facility] Work Phone: Potassium [Moles/Vol] 3.8 mmol/L 3.5-5.1 [facility]: Protein [Mass/Vol] 6.8 g/dL 6.4-8.2 [facility] Work Phone: Sodium [Moles/Vol] 138 mmol/L 136-145 [facility] Work Phone: WBC (Bld) [#/Vol] 8.0 10*3/uL 4.4-11.0 [facility] Work Phone: Blood erythrocytes count (nu mber/volume)on 08-30-2021 RBC (Bld) [#/Vol] 4.74 10*6/uL 4.6-6.2 [facility]: Blood hemoglobin measurement (mass/volume)on 08-30-2021 Hemoglobin (Bld) [Mass/Vol] 14.9 g/dL 13.0-16.5 [facility] Work Phone: Blood lymphocytes/100 leukoc yteson 08-30-2021 Lymphocytes/100 WBC (Bld) 28.9 % 19-41 [facility] Work Phone: Blood monocytes/100 leukocyt eson 08-30-2021 Monocytes/100 WBC (Bld) 11.7 % 0-10 [facility] Work Phone: Blood platelet mean volumeon 08-30-2021 Platelet mean volume (Bld) [Entitic vol] 10.1 fL 6.2-12.0 [facility] Work Phone: Determination of erythrocyte mean corpuscular volume (MCV)on 08-30-2021 MCV (RBC) [Entitic vol] 93.5 fL 80-94 [facility] Work Phone: Hematocrit Auto (Bld) [Volum e fraction]on 08-30-2021 Hematocrit (Bld) [Volume fraction] 44.3 % 40-54 [facility] Work Phone: Laboratory - Chemistry and C hemistry - challengeon 08-30-2021 ALP [Catalytic activity/Vol] 64 U/L 45-117 [facility] Work Phone: ALT [Catalytic activity/Vol] 25 U/L 16-61 [facility] Work Phone: CO2 [Moles/Vol] 21.0 mmol/L 21.0-32.0 [facility] Work Phone: Globulin (S) [Mass/Vol] 3.2 g/dL 2.2-4.2 [facility] Work Phone: Urea nitrogen/Creatinine [Mass ratio] 18.6 mg/mg 10-20 [facility] Work Phone: Laboratory - Hematology and Cell countson 08-30-2021 Erythrocyte distribution width (RBC) [Entitic vol] 44.1 fL 35.1-43.9 [facility] Work Phone: Erythrocyte distribution width (RBC) [Ratio] 12.8 % 11.6-14.6 [facility] Work Phone: Immature granulocytes/100 WBC (Bld) 0.100 % 0.0-0.9 [facility] Work Phone: Comment on above: IG% - Immature Granu locytes (promyelocytes, myelocytes and metamyelocytes) > 1% indicates that a LEFT SHIFT is Present. MCH (RBC) [Entitic mass] 31.4 pg 27.0-32.0 [facility] Work Phone: Nucleated RBC/100 WBC (Bld) [Ratio] 0 % 0-5 [facility] Work Phone: MCHC Auto (RBC) [Mass/Vol]on 08-30-2021 MCHC (RBC) [Mass/Vol] 33.6 g/dL 32-36 [facility] Work Phone: No Panel Informationon 08-30 Estimated GFR (MDRD) Amer 92 mL/min >60 [facility] Work Phone: Comment on above: GFR Calc Estimated GFR (MDRD) Non-Af Amer 76 mL/min >60 [facility] Work Phone: Comment on above: Non- GFR Calc Thyroid Stimulating Hormone (TSH) 1.17 uIU/mL 0.358-3.74 [facility] Work Phone: Vitamin D 25-Hydroxy 44.6 ng/mL [facility] Work Phone: Comment on above: Vitamin D 25(OH) Sta tus Range Deficiency <20 ng/mL (50nmol/L) Insufficiency 20 - 30 ng/mL (50 - 75 nmol/L) Sufficiency 30 - 100 ng/mL (75 - 250 nmol/L) Toxicity >100 ng/mL (>250 nmol/L) Platelets bldon 08-30-2021 Platelets (Bld) [#/Vol] 196 10*3/uL 150-450 [facility] Work Phone: Serum or plasma albumin winsome urement (mass/volume)on 08-30-2021 Albumin [Mass/Vol] 3.6 g/dL 3.2-5.0 [facility] Work Phone: Serum or plasma albumin/glob ulin mass ratioon 08-30-2021 Albumin/Globulin [Mass ratio] 1.1 {ratio} 0.9-2.4 [facility] Work Phone: Serum or plasma calcium winsome urement (mass/volume)on 08-30-2021 Calcium [Mass/Vol] 8.9 mg/dL 8.5-10.1 [facility] Work Phone: Serum or plasma creatinine m easurement (mass/volume)on 08-30-2021 Creatinine [Mass/Vol] 1.02 mg/dL 0.70-1.30 [facility] Work Phone: Comment on above: The validity of the calculated GFR & GFRAA in patients over 70 years has not been determined. Clinical correlation is essential. Serum or plasma urea nitroge n measurement (mass/volume)on 08-30-2021 Urea nitrogen [Mass/Vol] 19 mg/dL 7-18 [facility] Work Phone: Thin prep Papanicolaou smear with manual screeningon 08-30-2021 Thin prep Papanicolaou smear with manual screening 15 U/L 15-37 [facility] Work Phone: Thin prep Papanicolaou smear with manual screening 6 5-15 [facility] Work Phone: Office Visit: Spine Visit- R sided low back painon 01-24-2017 Documentation of current medications (procedure) Done Invalid Interpretation Code [facility] Work Phone: Office Visit: Spine Visit- R sided low back painon 01-10-2017 Documentation of current medications (procedure) Done Invalid Interpretation Code [facility] Work Phone: Protein mass conc Done [facility] Work Phone: Office Visit: Spine Visit- R sided low back painon 01-05-2017 Documentation of current medications (procedure) Done Invalid Interpretation Code [facility] Work Phone: Office Visit: Spine Visit- R sided low back painon 01-04-2017 Protein mass conc Done [facility] Work Phone: Office Visit: Spine Visit- R sided low back painon 01-02-2017 Documentation of current medications (procedure) Done Invalid Interpretation Code [facility] Work Phone: Office Visit: Spine Visit- R sided low back painon 12-28-2016 Documentation of current medications (procedure) Done Invalid Interpretation Code [facility] Work Phone: Protein mass conc Done [facility] Work Phone: Office Visit: Spine Visit- N EWon 12-27-2016 Protein mass conc Done [facility] Work Phone: Tobacco smoking status NHIS Never Invalid Interpretation Code [facility] Work Phone: Tobacco smoking status NHIS Former smoker [facility] Work Phone: Tobacco use [facility] Former smoker Invalid Interpretation Code [facility] Work Phone: Vital Signs Date Time Vital Sign Value Performing Clinician Facility 07-29-2024 13:42-0400 Body height 175.[address] Ramiro Tafoya MD Work Phone: [facility] 07-29-2024 13:42-0400 Body mass index (BMI) [Ratio] 29.7 kg/m2 Dr. Ramiro Tafoya MD Work Phone: [facility] 07-29-2024 13:42-0400 Body temperature 97.4 [degF] Dr. Ramiro Tafoya MD Work Phone: [facility] 07-29-2024 13:42-0400 Body weight 91.[address] Ramiro Tafoya MD Work Phone: [facility] 07-29-2024 13:42-0400 Diastolic blood pressure 79 mm[Hg] Dr. Ramiro Tafoya MD Work Phone: [facility] 07-29-2024 13:42-0400 Heart rate 65 /min Dr. Ramiro Tafoya MD Work Phone: [facility] 07-29-2024 13:42-0400 Respiratory rate 18 /min Dr. Ramiro Tafoya MD Work Phone: [facility] 07-29-2024 13:42-0400 SaO2% (BldA) [Mass fraction] 97 % Dr. Ramiro Tafoya MD Work Phone: [facility] 07-29-2024 13:42-0400 Systolic blood pressure 152 mm[Hg] Dr. Ramiro Tafoya MD Work Phone: [facility] 12-27-2022 09:55-0400 Diastolic blood pressure 106 mm[Hg] [facility] 12-27-2022 09:55-0400 Heart rate 58 /min [facility] 12-27-2022 09:55-0400 Respiratory rate 18 /min [facility] 12-27-2022 09:55-0400 SaO2% (BldA) [Mass fraction] 96 % [facility] 12-27-2022 09:55-0400 Systolic blood pressure 145 mm[Hg] [facility] 12-27-2022 06:49-0400 Body height 177.8 cm [facility] 12-27-2022 06:49-0400 Body mass index (BMI) [Ratio] 27.7 kg/m2 [facility] 12-27-2022 06:49-0400 Body temperature 97.1 [degF] [facility] 12-27-2022 06:49-0400 Body weight 87.6 kg [facility] 12-27-2016 08:15-0400 BMI (Body Mass Index) 25.99 kg/m2 [facility] Work Phone: 12-27-2016 08:15-0400 Height 175.26 cm [facility] Work Phone: 12-27-2016 08:15-0400 Pulse (Heart Rate) 80 /min Arleen Shogethersi [email or web address] Work Phone: 12-27-2016 08:15-0400 Respiratory Rate 18 /min Arleen Shogethersi [email or web address] Work Phone: 12-27-2016 08:15-0400 Weight 79.83 kg [facility] Work Phone: Encounters Encounter Date Encounter Type Care Provider Facility Start: 01-16-2025 End: 01-16-[address] Ramiro Tafoya MD Work Phone: -Radiology [facility] Start: 01-16-2025 End: 01-16-[address] Ramiro Tafoya MD -Radiology [facility] Work Phone: Start: 01-16-2025 End: 01-16-2025 ambulatory Ramiro Tafoya Facility:[facility] Start: 09-12-2024 End: 09-12-[address] [facility] Facility:[facility] Start: 07-29-2024 End: 07-29-2024 Emergency department patient visit Dr. Ramiro Tafoya MD Work Phone: -Emergency Department Work Phone: Start: 06-28-2024 End: 06-28-[address] ERIN TAFOYA MD Facility:A Start: 06-21-2024 End: 06-21-2024 ambulatory MADHU HE [employer] Facility:[facility] Start: 06-21-2024 End: 06-21-2024 Patient encounter procedure MADHU LUCIANOALEENA LEMUS-MIX MA[employer] [facility] Start: 03-18-2024 End: 03-18-2024 ambulatory Ramiro Tafoya Facility:[facility] Start: 09-11-2023 End: 09-11-2023 ambulatory [facility] Work Phone: Start: 09-11-2023 End: 09-11-2023 Patient encounter procedure [facility]-Laboratory, Phy Office 3rd Flr Start: 06-08-2023 End: 06-09-2023 ambulatory DANIEL DOWLING Facility:B Start: 06-08-2023 End: 06-08-2023 Patient encounter procedure DANIEL DOWLING MD [facility] Start: 03-15-2023 End: 03-15-2023 ambulatory [facility] Work Phone: Start: 03-15-2023 End: 03-15-2023 Patient encounter procedure [facility]-Laboratory, Phy Office 3rd Flr Start: 12-27-2022 End: 12-27-2022 Emergency department patient visit [facility]-Emergency Department Work Phone: Start: 09-08-2022 End: 09-08-2022 ambulatory [facility] Work Phone: Start: 09-08-2022 End: 09-08-2022 Patient encounter procedure [facility] Start: 04-26-2022 End: 04-26-2022 Patient encounter procedure ANTONIO RODRIGUEZ [employer] [facility] Start: 08-30-2021 End: 08-30-2021 Patient encounter procedure [facility]-Laboratory, Phy Office 3rd Flr Procedures Date Procedure Procedure Detail Performing Clinician Start: 01-16-2025 X-ray of chest, PA a nd lateral views Dr. Ramiro Tafoya MD Work Phone: Start: 07-29-2024 Plain X-ray of shoulder Dr. Ramiro Tafoya MD Work Phone: Start: 12-27-2022 CT of face Start: 01-24-2017 End: 01-24-2017 Chiropractic manipulation Arleen B Dossi DC Work Phone: Start: 01-10-2017 End: 01-10-2017 Chiropractic manipulation Arleen B Dossi DC Work Phone: Start: 01-05-2017 End: 01-05-2017 Chiropractic manipulation Arleen B Dossi DC Work Phone: Start: 01-04-2017 End: 01-04-2017 Chiropractic manipulation Arleen B Dossi DC Work Phone: Start: 01-02-2017 End: 01-02-2017 Chiropractic manipulation Arleen B Dossi DC Work Phone: Start: 12-28-2016 End: 12-29-2016 Chiropractic manipulation Arleen B Dossi DC Work Phone: Start: 12-28-2016 End: 12-29-2016 Electric stimulation therapy Arleen B Dossi DC Work Phone: Start: 05-22-2012 Cornel SOLIS [employer] Surgery (qualifier value) JOSEF RODRIGUEZ [employer] Comment on above: Left foot surgery- u nable to say what kind, but is able to say a plate was placed Plan of Treatment Date Care Activity Detail Author Start: 07-29-2024 [facility] Start: 01-24-2017 End: 01-24-2017 Appointment Appointment [facility] Work Phone: Start: 01-10-2017 End: 01-10-2017 Appointment Appointment [facility] Work Phone: Start: 01-10-2017 End: 01-10-2017 Follow up Appt 2x/Month Follow up Appt 2x/Month [facility] Work Phone: Start: 01-05-2017 End: 01-05-2017 Appointment Appointment [facility] Work Phone: Start: 01-05-2017 End: 01-05-2017 [...] up Appt 3x/week Follow up Appt 3x/week [facility] Work Phone: Patient Education [facility] Work Phone: Patient referral [facility] Work Phone: Immunizations Immunization Date Immunization Notes Care Provider Fa cility 08-18-2020 Covid (Pfizer) [facility] 07-28-2020 Covid (Pfizer) [facility] Payers Date Payer Category Payer Medicare [id number] 2024 Private Health Insurance [id number] 2024 Self-pay [id number] 2016 Unknown [id number] 2011 Medicare [id number] 1945 Unknown [id number] 2.16.8 [id number] 1945 Unknown [id number] 2.16.8 [id number] 1945 Unknown [id number] 2.16.8 [id number] Unknown [id number] 2.16.8 [id number] Unknown [id number] 2.16.8 [id number] Unknown [id number] 2.16.8 [id number] Unknown [id number] 2.16.8 [id number] Unknown [id number] 2.16.8 [id number] Social History Date Type Detail Facility Start: 07-20-2016 End: 12-27-2022 Tobacco smoking status NHIS Unknown if ever smoked [facility] Start: 1945 Sex Assigned At Male A [facility] Start: 05-19-2021 End: 07-29-2024 Tobacco smoking status Ex-smoker (finding) [facility] Sexual Orientation [facility] Start: 03-23-2018 End: 07-29-2024 Sex Male (finding) [facility] Clinical Notes 12-27-2022 to 01-16-2025 Note Date & Type Note Facility 01-16-2025 Radiology Diagnostic study note [facility] Imaging Services [address] [place], [place] [address] Chest PA and Lateral MR#: [id number] Acct: [id number] Name: NABOR HECK Rep #: [id number] : 1945 M [id number] From: Ken Dougherty MD PCP: Dr. Ramiro Tafoya MD Status: [facility] Study:Chest PA and Lateral Date of Exam: 01/16/25 Exam# [id number] Ordering Dr: Ramiro Tafoya MD PROCEDURE: CHEST PA AND LATERAL 01/16/2025 REASON FOR EXAM: WHEEZING/CONGESTION TECHNIQUE: CHEST PA AND LATERAL COMPARISON: None. FINDINGS: LUNGS AND PLEURA: The lungs are clear. No pleural effusion or pneumothorax. HEART AND MEDIASTINUM: The heart size and mediastinal contours are normal. BONES: No acute osseous abnormality. 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 An IVC filter is present at the L2 level. RAD/Chest PA and Lateral IMPRESSION: NO ACUTE FINDINGS. Reading Location: [id number] CC: Dr. Ramiro Tafoya MD ~ Addiction Therapist: Signed [facility] 07-29-2024 Radiology Diagnostic study note [facility] Imaging Services [address] [place] [address] Shoulder min 2 Views MR#: [id number] Acct: [id number] Name: NABOR HECK Rep #: [id number] : 1945 M [id number] From: Harriett Galloway MD PCP: Dr. Ramiro Tafoya MD Status: REG E R Study:Shoulder min 2 Views Date of Exam: 07/29/24 Exam# [id number] Ordering Dr: Rei Galloway DO EXAM: XR Left Shoulder Complete, 2 or More Views CLINICAL INDICATION: TECHNIQUE: Two or more views of the left shoulder. COMPARISON: No relevant prior studies available. FINDINGS: BONES/JOINTS: Mild degenerative change of the acromioclavicular and glenohumeral joints. No acute fracture. No dislocation. SOFT TISSUES: Soft tissue swelling. RAD/Shoulder min 2 Views IMPRESSION: Degenerative changes as above. Reading Location: [facility] CC: Dr. Ramiro Tafoya MD; Dr. Rei Galloway DO ~ Addiction Therapist: Signed [facility] 12-27-2022 Hospital Discharge instructions Additional Instructions Go directly to Dr. Gonzalez's office and she will see you this morning for further evaluation and treatment [facility] Work Phone: Evaluation + Plan note Future Appointments Appointment Date:05/19/2022 02:00:00 PM Scheduled Provider:DANIEL DOWLING MD Location:HEM ONC Appointment Type:HEM ONC OV Follow Up [facility] Evaluation + Plan note Future Appointments Appointment Date:06/28/2023 02:00:00 PM Scheduled Provider:MADHU HE Location:HEM ONC Appointment Type:HEM ONC OV Follow Up [facility] Evaluation + Plan note Future Appointments Appointment Date:06/28/2024 01:30:00 PM Scheduled Provider:RADHA DUNCAN DO Location:HEM ONC Appointment Type:HEM ONC OV Follow Up [facility] Evaluation note No assessment inform ation available [facility] Work Phone: Hospital course Narrative No data available for this section [facility] Hospital Discharge instructions No data available for this section [facility] Hospital Discharge instructions Additional Instructions X-ray negative. Continue Tylenol up to 1 g every 6 hours as needed. Follow-up with your doctor. [facility] Work Phone: Progress note No data available for this section [facility] Reason for referral (narrative) No reason for referral information available [facility] Work Phone: Advance Directives No Advanced Directives Records Found Advance Directive Response Recorded Date/ Time Advance Directives Yes June 24, 2016 1:22pm Living Will Yes July 20, 2016 11:23am Power of Silviculture Forester Yes July 20 11:23am Advance Directive Response Recorded Date/ Time Name of Medical Power of Silviculture Forester leonardo December 27, 2022 6:53am Advance Directives Yes June 24, 2016 1:22pm Living Will Yes December 27, 2022 6:53am Power of Silviculture Forester Yes December 27 6:53am Advance Directive Response Recorded Date/ Time Advance Directives Yes June 24, 2016 1:22pm Living Will Yes December 27, 2022 6:53am Power of Silviculture Forester Yes December 27 6:53am Advance Directive Response Recorded Date/ Time Living Will No July 29, 2024 2:40pm Power of Silviculture Forester No July 29 2:40pm Advance Directives Yes June 24, 2016 1:22pm Advance Directive Response Recorded Date/ Time Advance Directives Yes June 24, 2016 1:22pm Chief Complaint and Reason for Visit Chief Complaint allergic reaction, e ye redness Chief Complaint Admit Date fall, shoulder injury July 29, 2024 1 :39pm Chief Complaint Admit Date Wheezing January 16, 2025 4: 00pm Summary Purpose Family History No Family History [...] Role: Primary Care Physician Address: Address: [facility] [place], [place] [address] Care Team Related Persons Name: LEONARDO HECK [...] July 29, 2024 End: July 29, 2024 Team Status: Active Member Role/Relationship Status Dates Dr. Ramiro Tafoya MD Primary Care Provider Active Team Status: Active Member Role/Relationship Status Dates Dr. Ramiro Tafoya MD Primary Care Provider Active Start: January 16, 2025 Dr. Ramiro Tafoya MD Attending Provider Active Start: January 16, 2025 Dr. Ramiro Tafoya MD Referring Provider Active Start: January 16, 2025 Team Status: Inactive Member Role/Relationship Status Dates Dr. Ramiro Tafoya MD Primary Care Provider Active Start: January 16, 2025 End: January 16, 2025 Dr. Ramiro Tafoya MD Attending Provider Active Start: January 16, 2025 End: January 16, 2025 Dr. Ramiro Tafoya MD Referring Provider Active Start: January 16, 2025 End: January 16, 2025 (unrecognized sect ion and content) No Status Records FoundNo Status Records FoundNo Status Records FoundNo Status Records Found INFORMATION SOURCE (unrecogn ized section and content) DATE CREATED AUTHOR 06/09/2023 [facility] ([place]) DATE CREATED AUTHOR AUTHOR'S ORGANIZ ATION 06/23/2024 [facility] DATE CREATED AUTHOR AUTHOR'S ORGANIZ ATION 07/16/2024 [facility] DATE CREATED AUTHOR AUTHOR'S ORGANIZ ATION 01/24/2025 [facility] FOR RECORDS PERTAINING TO PATIENTS WHO ARE [...] BE BASED ON THE PRIMARY CLINICAL RECORDS. [facility]. provides no warranty or guarantee of the accuracy or completeness of information in this document.
--- NOTE | 2025-02-01 09:42 | ED.RN ---
[id number] pt. called out and stated I think I am passing out. THis RN and Vishnu RN went into room and pt. was mildy unresponsive, hypotensive, pt. color was pale. Pt. was placed in trendelenburg, 2nd PIV established, IV fluids hung on a pressure bag. dr. zafar aware and at bedside
[2025-02-01] MEDS: HUM PROTHROMBIN CPLX LANS IV (10:04)
[2025-02-01] MEDS: VIAFLEX IV (10:04)
--- NOTE | 2025-02-01 10:17 | ED.RN ---
2 units trauma blood hanging verified with Vishnu PALOMARES
--- NOTE | 2025-02-01 10:18 | ED.RN ---
Update given to son Madonna, pt. asked that I do a verbal consent for transport
[2025-02-01 10:24] LABS: Anion Gap 12 (5-15); BUN 20 mg/dL (4-19); BUN/Creat Ratio 17.0 RATIO (10-20); Calcium,Total 9.0 mg/dL (7.6-11.0); Carbon Dioxide 18.5 mmol/L (21.0-32.0); Chloride 107 mmol/L (98-108); Estimated Creatinine Clearance 57.15 ml/min (50-250); Glucose 128 mg/dL (70-99); Potassium 3.8 mmol/L (3.3-5.1); Troponin T High Sensitivity 22 ng/L (<=22)
[2025-02-01] MEDS: Pantoprazole Sodium 80 MG in 0.9% Normal Saline (100mL Bag) 80 ML 10 MG CONT INF (10:38)
--- NOTE | 2025-02-01 11:10 | ED.RN ---
nursing report given to Tegan at [facility]
== END 2025-02-01 11:11 | disposition other institution (70) ==
PROVIDERS: Emergency Provider Emergency Medicine; PCP Family Medicine Geriatric Medicine; Visit Provider Emergency Medicine
DX: K92.2 Gastrointestinal hemorrhage, unspecified (principal); R57.8 Other shock; Z87.891 Personal history of nicotine dependence; Z86.718 Personal history of other venous thrombosis and embolism; R55 Syncope and collapse; Z79.01 Long term (current) use of anticoagulants; Z79.899 Other long term (current) drug therapy; Z95.828 Presence of other vascular implants and grafts
CPT/HCPCS: 71046; 74174; 80048; 82274; 82962; 84484; 85025; 85610; 85730; 86644; 86850; 86900; 86901; 86920; 93005; 96365; 96375; 99285; P9016; Q9967; A4216; J0612; J7165

== ENCOUNTER → 2025-02-13 | Outpatient (CLI) | payer MEDICARE, OTHER, SELFPAY ==
[2025-02-13 16:51] LABS: Hematocrit 33.6 % (40-54); Hemoglobin 10.9 g/dL (13.0-16.5); Immature Granulocytes Count 0.030 X10^3/uL (0.0-0.0); Mean Corp Hgb Conc 32.4 g/dL (32-36); Mean Corpuscular Volume 94.4 fL (80-94); Mean Platelet Vol. 9.5 fl (6.2-12.0); NRBC Flagged by Analyzer 0 % (0-5); Platelet Count 328 K/mm3 (150-450); RBC Distribution Width CV 14.3 % (11.6-14.6); RBC Distribution Width SD 49.1 fl (35.1-43.9); Red Blood Count 3.56 M/mm3 (4.6-6.2); White Blood Count 7.4 K/mm3 (4.4-11.0)
== END | disposition home or self-care (01) ==
LOC: POLAB3 16:28
PROVIDERS: PCP Family Medicine Geriatric Medicine; Visit Provider Family Medicine Geriatric Medicine
DX: I10 Essential (primary) hypertension (principal)
CPT/HCPCS: 36415; 85025

== ENCOUNTER → 2025-03-19 | Outpatient (CLI) | payer MEDICARE, OTHER, SELFPAY ==
[2025-03-19 09:37] LABS: Hematocrit 38.4 % (40-54); Hemoglobin 12.3 g/dL (13.0-16.5); Immature Granulocytes Count 0.020 X10^3/uL (0.0-0.0); Mean Corp Hgb Conc 32.0 g/dL (32-36); Mean Corpuscular Volume 91.4 fL (80-94); Mean Platelet Vol. 10.4 fl (6.2-12.0); NRBC Flagged by Analyzer 0 % (0-5); Platelet Count 219 K/mm3 (150-450); RBC Distribution Width CV 15.9 % (11.6-14.6); RBC Distribution Width SD 53.0 fl (35.1-43.9); Red Blood Count 4.20 M/mm3 (4.6-6.2); White Blood Count 7.2 K/mm3 (4.4-11.0)
[2025-03-19 10:42] LABS: AST(SGOT) 22 U/L (<=37); Alanine Aminotransfer ALT/SGPT 15 U/L (<=46); Albumin, Serum 3.9 g/dL (3.4-4.8); Alkaline Phosphatase 64 U/L (40-129); Anion Gap 10 (5-15); BUN 18 mg/dL (4-19); BUN/Creat Ratio 20.7 RATIO (10-20); Calcium,Total 9.2 mg/dL (7.6-11.0); Carbon Dioxide 23.8 mmol/L (21.0-32.0); Chloride 108 mmol/L (98-108); Globulin 2.5 g/dL (2.2-4.2); Glucose 90 mg/dL (70-99); Potassium 4.2 mmol/L (3.3-5.1); Vitamin D,25 Hydroxy 25.8 ng/mL (30-100)
[2025-03-19 17:15] LABS: Xtra Tube Kwok EXTRA TUBE
== END | disposition home or self-care (01) ==
LOC: POLAB3 09:26
PROVIDERS: PCP Family Medicine Geriatric Medicine; Visit Provider Family Medicine Geriatric Medicine
DX: I10 Essential (primary) hypertension (principal); E03.9 Hypothyroidism, unspecified; E55.9 Vitamin D deficiency, unspecified
CPT/HCPCS: 36415; 80053; 82306; 84443; 85025